=== PATIENT | female | born 1980 | race Caucasian/White ===

== ENCOUNTER 2020-04-01 18:36 | Emergency (ER) | payer OTHER ==
[~2020-04-01] VITALS: Ht 167.6 cm; Wt 68.0 kg
--- OUTSIDE RECORDS SUMMARY | ~2020-04-01 | XMS | Encounter Summary ---
Demographics + + + | Address | [address] | | | [place] [address] | + + + | Home Phone | | + + + | Preferred Language | Unknown | + + + | Marital Status | | + + + | Hoahaoism Affiliation | 1013 | + + + | Race | White | + + + | Ethnic Group | Not or | + + + Author + + + | Author | [facility] | | | and [place] | + + + | Organization | [facility] | | | and [place] | + + + | Address | Unknown | + + + | Phone | Unavailable | + + + Support + + + + + | Name | Relationship | Address | Phone | + + + + + | Leni Addison | ECON | NA | | | | | [place], [place] | | + + + + + Care Team Providers + +------+ + | Care Fountain Pen Turner Name | Role | Phone | + +------+ + | No, Physician | PCP | Unavailable | + +------+ + Reason for Referral Diagnostic/Screening (Routine) +--------+--------+ + + + + | Status | Reason | Specialty | Diagnoses / | Referred By | Referred To | | | | | Procedures | Contact | Contact | +--------+--------+ + + + + | Closed | | Radiology | Diagnoses | Yohana, | [facility] | | | | | Lumbar | Kaen | [address] | | | | | sprain | MD [place] | [place] | | | | | Sprain of | Need updated | [place] | | | | | left hip | address | [address] | | | | | Place of | | Phone: | | | | | occurrence, | | [phone] | | | | | industrial | | Fax: | | | | | places and | | [phone] | | | | | premises | | | | | | | Procedures | | | | | | | MRI Hip Left | | | | | | | wo Contrast | | | +--------+--------+ + + + + Encounter Details +--------+ + + + + | Date | Type | Department | Care Team | Description | +--------+ + + + + | 10/11/ | Orders Only | [facility] [place] | Kane Muller | Lumbar sprain | | 2012 | | [facility] [address] | MD Carlton Need | (Primary Dx); Sprain | | | | [facility] | updated address | of left hip; Place | | | | [facility] [place] | | of occurrence, | | | | [address] | | industrial places | | | | [phone] | | and premises | +--------+ + + + + Social History + +-------+ +--------+------+ | Tobacco Use | Types | Packs/Day | Years | Date | | | | | Used | | + +-------+ +--------+------+ | Never Smoker | | | | | + +-------+ +--------+------+ + +---+---+---+ | Smokeless Tobacco: | | | | | Former User | | | | + +---+---+---+ + + +---------+ + | Alcohol Use | Drinks/Week | oz/Week | Comments | + + +---------+ + | Not Asked | | | | + + +---------+ + + + + | Sex Assigned at | Date Recorded | | | | + + + | Not on file | | + + + documented as of this encounter Plan of Treatment Not on filedocumented as of this encounter Results MRI Hip Left wo Contrast (10/16/2012 2:27 PM PDT) + + | Specimen | + + | | + + + + + | Narrative | Performed At | + + + | [facility] | [place] | | Department [facility] | [facility] | | [ rep [address]] [ rep ct [facility] | | st zip] Signed | - IMAGING | | | | | Patient Name: PENELOPE VASQUEZ Physician: | | | [place]. : 1980 Age: 32 Sex: F Unit #: [id number] | | | Exam Date: 10/16/12 Location: [facility] | | | Report #: [id number] Page: | | | %(RAD)RES..mtdd.print.filter("pg") of %(RAD) | | | RES..mtdd.print.filter("tpg") | | | | | | Accession Number: [id number] | | | MRI LEFT HIP, 10/16/2012 CLINICAL HISTORY: BACK AND LEFT | | | HIP PAIN. COMPARISON: 03/20/2012 left hip MRI. | | | TECHNIQUE: MRI imaging of the pelvis and dedicated sequences of the | | | left hip without contrast. FINDINGS: There is abnormal | | | signal in the anterosuperior left hip labrum. There is also small | | | focus of chondral labral separation. Mild altered signal continues | | | in the superior labrum. The posterior and posteroinferior labrum is | | | normal and intact. There is no significant cartilage heterogeneity | | | or evidence for cartilage loss on the acetabulum or femoral head. | | | No morphologic changes to suggest femoral acetabular impingement | | | or acetabular protrusion. No evidence for acetabular retroversion. | | | The iliofemoral ligament is unremarkable. The visible iliopsoas | | | tendon is unremarkable. No significant joint effusion. | | | Bilaterally, marrow signal is normal. No evidence for fracture or | | | stress related changes. No evidence for osteitis pubis. No | | | visible sacroiliitis. There is no right hip joint effusion. No | | | muscle edema or significant atrophy or asymmetry. There is a small | | | rounded area of low signal in the right aspect of the uterus that | | | may be a fibroid. Overall configuration of the uterus has normalized | | | compared to the prior exam. No significant pelvic free fluid. | | | IMPRESSION: 1. FINDINGS CONSISTENT WITH A LABRAL | | | TEAR OF THE LEFT ANTEROSUPERIOR LABRUM. | | | <<Signature on File>> | | | Epi | | | Giorgio Pascual MD10/17/12 1109 <Electronically signed by Epi Alvares | | | Ankur WHITTAKER> Epi Pascual MD 10/16/12 1427 | | | Oil Winterizer: Jennie Mckenzie10/17/12 0835 | | | Kane Muller MD | | + + + + + + + + | Performing | Address | City[facility]State[facility] | Phone Number | | Organization | | | | + + + + + | [address] | [address] | [place] | [phone] | | [facility] | | [address] | | | - IMAGING | | | | + + + + + documented in this encounter Visit Diagnoses + + | Diagnosis | + + | Lumbar sprain - Primary Sprain of lumbar region | + + | Sprain of left hip Sprain and strain of unspecified site of hip and thigh | + + | Place of occurrence, industrial places and premises | + + documented in this encounter
--- OUTSIDE RECORDS SUMMARY | ~2020-04-01 | XMS | Encounter Summary ---
Demographics + + + | Address | [address] | | | [place] [address] | + + + | Home Phone | | + + + | Preferred Language | Unknown | + + + | Marital Status | | + + + | Yazdanism Affiliation | Unknown | + + + | Race | White | + + + | Ethnic Group | Not or | + + + Author + + + | Author | [facility] | + + + | Organization | [facility] | + + + | Address | Unknown | + + + | Phone | Unavailable | + + + Support + + +---------+ + | Name | Relationship | Address | Phone | + + +---------+ + | Leni Villarreal | ECON | Unknown | | + + +---------+ + Care Team Providers + +------+ + | Care Estate Manager Name | Role | Phone | + +------+ + | Radu Prater MD | PCP | | + +------+ + Encounter Details +--------+ + + + + | Date | Type | Department | Care Team | Description | +--------+ + + + + | 09/18/ | Documentati | [facility] | Hernandez Melendez, | | | 2014 | on | Center at [facility] [address] | [address] | | | | | [address] | [facility] [place] | | | | | [facility] and | [address] | | | | | [facility], [facility] 1, | [phone] | | | | | [facility] Floor | | | | | | [place], [place] | | | | | | [address] | | | | | | [phone] | | | +--------+ + + + + Social History + +-------+ +--------+------+ | Tobacco Use | Types | Packs/Day | Years | Date | | | | | Used | | + +-------+ +--------+------+ | Never Assessed | | | | | + +-------+ +--------+------+ + + + | Sex Assigned at | Date Recorded | | | | + + + | Not on file | | + + + documented as of this encounter Plan of Treatment Not on filedocumented as of this encounter Visit Diagnoses Not on filedocumented in this encounter"
--- OUTSIDE RECORDS SUMMARY | ~2020-04-01 | XMS | Encounter Summary ---
Demographics + + + | Address | [address] | | | [place] [address] | + + + | Home Phone | | + + + | Preferred Language | Unknown | + + + | Marital Status | | + + + | Voodoo Affiliation | 1013 | + + + | Race | White | + + + | Ethnic Group | Not or | + + + Author + + + | Author | [facility] | | | and [place] | + + + | Organization | [facility] | | | and [...] Team Providers + +------+ + | Care Floor Scraper Name | Role | Phone | + +------+ + PCP | Unavailable | + +------+ + Encounter Details +--------+ + + + + | Date | Type | Department | Care Team | Description | +--------+ + + + + | 07/01/ | Hospital | [facility] | | | | 2002 | Encounter | MED CTR XRAY [address] | | | | | | [place] | | | | | | [place] [address] | | | | | | [phone] | | | +--------+ + + + [...]
--- OUTSIDE RECORDS SUMMARY | ~2020-04-01 | XMS | Encounter Summary ---
Demographics + + + | Address | [address] | | | [place] [address] | + + + | Home Phone | | + + + | Preferred Language | Unknown | + + + | Marital Status | | + + + | Baptism Affiliation | 1013 | + + + | Race | White | + + + | Ethnic Group | Not or | + + + Author + + + | Author | [facility] | | | and [place] | + + + | Organization | [facility] | | | and [place] | + + + | Address | Unknown | + + + | Phone | Unavailable | + + + Support + + + + + | Name | Relationship | Address | Phone | + + + + + | Leni Addison | ECON | NA | | | | | [place] | | + + + + + Care Team Providers + +------+ + | Care Business Partner Name | Role | Phone | + +------+ + | Radu Fabian MD | PCP | | + +------+ + Reason for Referral Rehabilitation (Routine) +--------+ + + + + + | Status | Reason | Specialty | Diagnoses / | Referred By | Referred To | | | | | Procedures | Contact | Contact | +--------+ + + + + + | Closed | Specialty | Physical | Diagnoses | Yohana, | [place], | | | Services | Medicine and | Lumbar | Kane | Laureano Alvares MD | | | Required | Rehabilitatio | sprain Left | MD Carlton | [address] | | | | n | lumbar | Need updated | [facility] | | | | | radiculitis | address | [place], [place] | | | | | Sprain of | | [address] Phone: | | | | | left hip | | [phone] | | | | | Place of | | Fax: | | | | | occurrence, | | [phone] | | | | | industrial | | | | | | | places and | | | | | | | premises | | | +--------+ + + + + + Reason for Visit + + + | Reason | Comments | + + + | Back Pain | | + + + Encounter Details +--------+---------+ + + + | Date | Type | Department | Care Team | Description | +--------+---------+ + + + | 11/18/ | Office | [facility] [place] | Kane Muller | Lumbar sprain | | 2012 | Visit | OCCUPATIONAL HEALTH | MD Carlton Need | (Primary Dx); Left | | | | [facility] [address] | updated address | lumbar radiculitis; | | | | [address] [place] | | Sprain of left hip; | | | | [place], [place] | | Place of occurrence, | | | | [address] | | industrial places | | | | [phone] | | and premises | +--------+---------+ + + + Social History + +-------+ [...] + + documented as of this encounter Last Filed Vital Signs + + + + + | Vital Sign | Reading | Time Taken | Comments | + + + + + | Blood Pressure | 110/78 | 11/18/2012 8:08 AM | | | | | PDT | | + + + + + | Pulse | 84 | 11/18/2012 8:08 AM | | | | | PDT | | + + + + + | Temperature | 37.1 C (98.8 F) | 11/18/2012 8:08 AM | | | | | PDT | | + + + + + | Respiratory Rate | 16 | 11/18/2012 8:08 AM | | | | | PDT | | + + + + + | Oxygen Saturation | - | - | | + + + + + | Inhaled Oxygen | - | - | | | Concentration | | | | + + + + + | Weight | 73.5 kg (162 lb) | 11/18/2012 8:08 AM | | | | | PDT | | + + + + + | Height | 167.6 cm (5' 6") | 11/18/2012 8:08 AM | | | | | PDT | | + + + + + | Body Mass Index | 26.15 | 11/18/2012 8:08 AM | | | | | PDT | | + + + + + documented in this encounter Progress Notes Kane Muller MD - 11/18/2012 9:39 AM PDTSee dictation [id number] nikki d by Kane Muller MD at 11/18/2012 9:40 AM Kane Phan MD - 11/19/19 13 12:00 AM PDT OCCUPATIONAL MEDICINE [facility] [place] [address] FAX: [phone] OFFICE VISIT : 1980 Claim number: [id number] Date of injury: 07/27/2011 Employer: [employer] Guarantor: Musa Jenkins COMPLAINT: Back pain and left hip pain, scheduled followup. S: The injured worker is 32 years of age, here for a scheduled followup. She is doing some what better. She did have her follow up with Dr. Martinez, injection therapy was performed in the trochanteric bursal area, I believe, and she notes that there is essentially total resolution of part of her discomfort, which was emanating from the greater trochanteric are a distally. She still has discomfort that is superior and posterior to the greater trochant tyree area, and Dr. Martinez's recommendations to her was to have a followup with Dr. Morgan summers, to consider injection therapy into the acetabular area, I would guess under fluorosc opy guidance, to see if this will completely clear up her problems. No surgical treatment w as indicated, to the best of her knowledge. She has seen Dr. Peraza before, with regard s to her evaluation and treatment for her back, and she is anxious and optimistic about res olution of her symptoms with treatment going in a positive direction at this time. She repo rts no new development of musculoskeletal or neurologic symptomatology or changes in backgr ound medical information. She is continuing to work at her regular work responsibilities. OBJECTIVE VITAL SIGNS: Unremarkable. GENERAL: No acute distress. EXTREMITY EXAMINATION: Left hip exam, no point tenderness on palpation. She demonstrated v mirna good range of motion on hip flexion and extension and external rotation, with essential ly no complaints of discomfort in the greater trochanteric area. I pointed out to her that this appeared to be a remarkable improvement, and she considered this for a bit and then morrissey d to agree. There were no distal neurocirculatory changes. Gait was unremarkable. IMAGING / DIAGNOSTICS: None indicated at this time, other than following through with Dr. Peraza to see if he has anything else to add with regards to hip pathology and treatmen t. PENDING INTERVENTIONS: Continue conservative measures, pending Dr. Peraza's evaluation , which is currently scheduled for 12/09/2012. A: 1. Lumbar sprain and left radiculitis. 2. Left hip sprain and internal derangement. P: The injured worker is congratulated on her good response to the injection therapy. I am going to schedule her to see me in about a 2-month period of time, anticipating that withi n that time frame she will have a chance to go through treatment recommendations from Dr. Peraza, and at the follow up with me, we will determine whether or not she is at maximal medical improvement with regards to treatment and diagnostic intervention. She voiced und erstanding and agreement. E: Regular work. R: The restrictions are: No work restrictions. Impairment undetermined. She is not MMI status for the above reasons. John Muller MD / [facility] JOB #: [id number] signed by Kane Muller MD at 11/18/2012 4:15 PM PDTd ocumented in this encounter Miscellaneous Notes Plan of Care - VIKKI TREVIÑO [facility] - 11/18/2012 12:00 AM PDT documented in this encounter Plan of Treatment + + +--------+ + + | Name | Type | Priori | Associated Diagnoses | Order Schedule | | | | ty | | | + + +--------+ + + | Ambulatory referral | Outpatient | Routin | Lumbar sprain | Ordered: 11/18/2012 | | to Physical Medicine | Referral | e | Left lumbar | | | Rehab | | | radiculitis Sprain | | | | | | of left hip Place | | | | | | of occurrence, | | | | | | industrial places | | | | | | and premises | | + + +--------+ + + documented as of this encounter Visit Diagnoses + + | Diagnosis | + + | Lumbar sprain - Primary Sprain of lumbar region | + + | Left lumbar radiculitis Thoracic or lumbosacral neuritis or radiculitis, unspecified | + + | Sprain of left hip Sprain and strain of unspecified site of hip and thigh | + + | Place of occurrence, industrial places and premises | + + documented in this encounter
--- OUTSIDE RECORDS SUMMARY | ~2020-04-01 | XMS | Encounter Summary ---
Demographics + + + | Address | [address] | | | [place] [address] | + + + | Home Phone | | + + + | Preferred Language | Unknown | + + + | Marital Status | | + + + | Jain Affiliation | 1013 | + + + [...] | NA | | | | | [place], [place] | | + + + + + Care Team Providers + +------+ + | Care Global Program Manager Name | Role | Phone | + +------+ + PCP | Unavailable | + +------+ + Encounter Details +--------+ + + + + | Date | Type | Department | Care Team | Description | +--------+ + + + + | 11/26/ | Hospital | [facility] | Shaun Fairbanks MD | | | 2000 | Encounter | MED CTR [facility] | [address] | | | | | [facility] [address] | [place] | | | | | [place], | [address] | | | | | [place] [address] | | | | | | [phone] | | | +--------+ + + + [...]
--- OUTSIDE RECORDS SUMMARY | ~2020-04-01 | XMS | Encounter Summary ---
Demographics + + + | Address | [address] | | | [place] [address] | + + + | Home Phone | | + + + | Preferred Language | Unknown | + + + | Marital Status | | + + + | Orthodox Affiliation | 1013 | + + + | Race | White | + + + | Ethnic Group | Not or | + + + Author + + + | Author | [facility] | | | and [place] | + + + | Organization | [facility] | | | and [...] Team Providers + +------+ + | Care Lab Coordinator Name | Role | Phone | + +------+ + | Radu Fabian MD | PCP | | + +------+ + Reason for Visit + + + | Reason | Comments | + + + | Back Pain | | + + + Encounter Details +--------+---------+ + + + | Date | Type | Department | Care Team | Description | +--------+---------+ + + + | 10/31/ | Office | [facility] | Kane Muller | Lumbar sprain | | 2013 | Visit | OCCUPATIONAL HEALTH | MD Carlton Need | (Primary Dx); Left | | | | [place] [address] | updated address | lumbar radiculitis; | | | | [address] [place] | | Place of occurrence, | | | | [place], [place] | | industrial places | | | | [address] | | and premises | | | | [phone] | | | +--------+---------+ + + + Social History [...] + + + | Blood Pressure | 110/65 | 10/31/2012 1:09 PM | | | | | PDT | | + + + + + | Pulse | 72 | 10/31/2012 1:09 PM | | | | | PDT | | + + + + + | Temperature | 37 C (98.6 F) | 10/31/2012 1:09 PM | | | | | PDT | | + + + + + | Respiratory Rate | 16 | 10/31/2012 1:09 PM | | | | | PDT | | + + + + + | Oxygen Saturation | - | - | | + + + + + | Inhaled Oxygen | - | - | | | Concentration | | | | + + + + + | Weight | 73.5 kg (162 lb) | 10/31/2012 1:09 PM | | | | | PDT | | + + + + + | Height | 167.6 cm (5' 6") | 10/31/2012 1:09 PM | | | | | PDT | | + + + + + | Body Mass Index | 26.15 | 10/31/2012 1:09 PM | | | | | PDT | | + + + + + documented in this encounter Progress Notes Kane Muller MD - 10/31/2012 1:58 PM PDTSee dictation [id number] nikki d by Kane Muller MD at 10/31/2012 1:59 PM Kane Phan MD - 11/01/19 13 12:00 AM PDT OCCUPATIONAL MEDICINE [facility] [place] [address] FAX: [phone] OFFICE VISIT CLAIM NUMBER: [id number] DATE OF INJURY: 07/27/2011 EMPLOYER: [employer] GUARANTOR: Musa Jenkins COMPLAINT: Back injury, scheduled followup to address recent orthopedic evaluation. S: The injured worker is 32, here for a scheduled appointment. She had contacted our office and expressed concerns about the specific treatment plan that had been outlined for her by Dr. Martinez, orthopedic national sales consultant. She is concerned that where Dr. Martinez is anticip ating performing his services may not be the area where her problems are stemming from and we have discussed this at some length, it should be noted below. She reports no other ferro es in background medical information. OBJECTIVE VITAL SIGNS: Unremarkable. GENERAL: No acute distress. Gait appears to be normal, to me. IMAGING/DIAGNOSTICS: None indicated based on our evaluation this date. PENDING INTERVENTIONS: Following through with treatment recommendations per Dr. Martinez, orthopedic national sales consultant. A: LUMBAR SPRAIN WITH LEFT RADICULITIS, POSSIBLE LEFT HIP PATHOLOGY, PERSISTENT SYMPTOMATOL OGY. P: I did explain to the injured worker that Dr. Martinez is a very good and cautious provi ainsley who would not frivolously recommend a treatment without a good logical treatment plan i n place. I indicated to the injured worker that the procedure being performed by Dr. Bahena son has both therapeutic, hopefully, and diagnostic information, and that the experiences o f the injured worker following the injection therapy and what her response is to that is ex tremely important in formulating a better idea of the precise diagnosis and source of her d iscomfort in formulating a good treatment plan. After this discussion she was much more rel ieved, confident, and prepared to move forward with this. I did indicate to the injured wor ker that the treatment obviously needs to have approval by the shelter case manager and, hopefull y, that will be forthcoming. I do believe that it is important for us, on a diagnostic basi s, to be moving forward with this treatment plan with the diagnostic intervention so that t he very best diagnosis and, accordingly, best treatment be afforded the injured worker. She voiced understanding and agreement. E: She is still doing regular work. R: No work restrictions at this time. Impairment undetermined. I do not believe she is MMI status for the above reasons. I will follow up with her in about a 2-3 week period of time to review clinical response to the injection therapy, or certainly sooner p.r.n. developmen t of problems. G. Carlton Yohana, MD / [facility] JOB #: [id number] signed by Kane Muller MD at 11/01/2012 5:10 PM PDTd ocumented in this encounter Miscellaneous Notes Plan of Care - VIKKI KAMILA WAAZ - 10/31/2012 12:00 AM PDT documented in this encounter Plan of Treatment Not on filedocumented as of this encounter Visit Diagnoses + + | Diagnosis | + + | Lumbar sprain - Primary Sprain of lumbar region | + + | Left lumbar radiculitis Thoracic or lumbosacral neuritis or radiculitis, unspecified | + + | Place of occurrence, industrial places and premises | + + documented in this encounter
--- OUTSIDE RECORDS SUMMARY | ~2020-04-01 | XMS | Encounter Summary ---
Demographics + + + | Address | [address] | | | [place] [address] | + + + | Home Phone | | + + + | Preferred Language | Unknown | + + + | Marital Status | | + + + | Yarsani Affiliation | 1013 | + + + | Race | White | + + + | Ethnic Group | Not or | + + + Author + + + | Author | [facility] | | | and [place] | + + + | Organization | [facility] | | | [...] Team Providers + +------+ + | Care Recreation Establishment Manager Name | Role | Phone | + +------+ + PCP | Unavailable | + +------+ + Encounter Details +--------+ + + + + | Date | Type | Department | Care Team | Description | +--------+ + + + + | 08/19/ | Hospital | [facility] | | | | 1995 | Encounter | MED CTR XRAY [address] | | | | | | [place] | | | | | | [place] [address] | | | | | | [phone] | | | +--------+ + + + [...]
--- OUTSIDE RECORDS SUMMARY | ~2020-04-01 | XMS | Encounter Summary ---
Demographics + + + | Address | [address] | | | [place] [address] | + + + | Home Phone | | + + + | Preferred Language | Unknown | + + + | Marital Status | | + + + | Judaism Affiliation | Unknown | + + + | Race | White | + + + | Ethnic Group | Not or | + + + Author + + + | Author | [facility] | + + + | Organization | [facility] | + + + | Address | Unknown | + + + | Phone | Unavailable | + + + Support + + +---------+ + | Name | Relationship | Address | Phone | + + +---------+ + | Leni Villarreal | ECON | Unknown | | + + +---------+ + Care Team Providers + +------+ + | Care Hydro Generation Supervisor Name | Role | Phone | + +------+ + | Radu Prater MD | PCP | | + +------+ + Reason for Visit + + + | Reason | Comments | + + + | New Patient Visit | | + + + Consultation (Routine) +--------+--------+ + + + + | Status | Reason | Specialty | Diagnoses / | Referred By | Referred To | | | | | Procedures | Contact | Contact | +--------+--------+ + + + + | Closed | | Otolaryngolog | Diagnoses | Paresh, | Ent Sinus | | | | y | | Davie Rangel, | [facility] [address] | | | | | Disturbances | MD | [address] | | | | | of | [place] | [place] for | | | | | sensation of | HEAD & NECK | Health and | | | | | smell and | [facility] [address] | Healing, | | | | | taste Acute | [address] | [address], | | | | | sinusitis, | [address] | [address] | | | | | unspecified | [place], | [place], [place] | | | | | | [place] [address] | [address] | | | | | | Phone: | Phone: | | | | | | [phone] | [phone] | | | | | | Fax: | Fax: | | | | | | [phone] | [phone] | +--------+--------+ + + + + Encounter Details +--------+---------+ + + + | Date | Type | Department | Care Team | Description | +--------+---------+ + + + | 09/24/ | Office | [facility] | Huong Ramsay E, | Hyposmia (Primary | | 2013 | Visit | Center at [facility] | [facility] [address] | Dx) | | | | [address] | Ave [place], [place] | | | | | for Health and | [address] | | | | | [facility], [facility], | [phone] | | | | | [address] [place] [address] | | | | | | [place], [place] | | | | | | [address] | | | | | | [phone] | | | +--------+---------+ + + + Social History + +-------+ +--------+------+ | Tobacco Use | Types | Packs/Day | Years | Date | | | | | Used | | + +-------+ +--------+------+ | Never Smoker | | | | | + +-------+ +--------+------+ + + +---------+ + | Alcohol Use | Drinks/Week | oz/Week | Comments | + + +---------+ + | Yes | 5 Standard drinks | 4.2 | | | | or equivalent | | | + + +---------+ + + + + | Sex Assigned at | Date Recorded | | | | + + + | Not on file | | + + + documented as of this encounter Progress Notes Huong Ramsay PA-C - 09/24/2013 2:20 PM PDT [facility] HPI: Gayathri Palma is a 33 y.o. female who presents to the [facility] in c onsultation for decreased smell and taste. Current symptoms include loss of smell and taste . Symptoms began 5 months ago, following a URI. She can decipher between sweet, salty, suzette r and bitter. Describes an occasional sulphur and sweet scent. Symptom severity is moderate. Improvement occurred with Nothing. Additional evaluation has included CT scan sinuses. She has used saline irrigations and was also treated with an oral steroid, antibiotic and m ucinex around the end of Jul, no improvement with these therapies. No current outpatient prescriptions on file. No current facility-administered medications for this visit. The patient's New Patient History Form was reviewed with the patient. Changes and addition s, where necessary, were made and the form was scanned to the medical record. Comprehensive review of systems was negative other than as documented on this note and on the New Patient History Form. No past medical history on file. Past Surgical History Procedure Laterality Date Hysterectomy Family History Problem Relation Cancer Heart Disease History Substance Use Topics Smoking status: Never Smoker Smokeless tobacco: Not on file Alcohol Use: 2.5 oz/week 5 drink(s) per week Allergies: No Known Allergies PHYSICAL EXAM: General Appearance: Pleasant, well-developed, well-nourished patient, in no apparent distre ss. Mental status normal. Breathing quietly, comfortably, no stridor or wheezing. Head/Face: No skin lesions, face symmetric, sensation normal Eyes: EOMI Ears: External ears normal to inspection and palpation, canals clear, TM's intact, no middl e ear effusion. Nose: Anterior rhinoscopy reveals healthy mucosa. Nasal endoscopy was indicated to better e valuate the nose and paranasal sinuses given the patient's history and exam findings and is detailed below. Oral Cavity/Pharynx: No masses or lesions of lips, gums, tongue, floor of mouth, buccal muc farhad, hard palate or soft palate. Dentition is good. No erythema, exudate, or tonsillar sean s. Posterior pharyngeal wall normal. Neck/Lymphatic: no masses or adenopathy Neurologic: CN 2-12 intact PROCEDURE: Diagnostic Nasal Endoscopy Anesthesia: Lidocaine 4% topical anesthetic was placed. Description of Procedure: A rigid endoscope was utilized to evaluate the sinonasal cavities , mucosa, sinus ostia and turbinates. Overall, signs of mucosal inflammation are noted. Al so noted are healthy mucosa. No evidence of purulence, polyps, masses or lesions. RADIOGRAPHIC EVALUATION: A current CT done at an outside facility was reviewed which reveal s overall well ventilated sinuses. 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 We've discussed issues and options today. The risks, benefits and alternatives were discus sed and questions answered. She will trial both smell training with three different house h old spices BID for two months. She will also start 400mg/day alpha lipoic acid for 2-3 month s. w She was given literature regarding hyposmia/ansomia. We discussed safety factors including reading expiration labels on food and checking to be sure smoke detectors are functioning in the home. We also discussed the option of obtaining a MRI if she notices any changes to her symptoms or neurological deficits. documented in this encounter Miscellaneous Notes Scan - Other, Faculty - 12/29/2013 12:16 PM PDTElectronically signed by Faculty Other at 12:16 PM PDTdocumented in this encounter Plan of Treatment Not on filedocumented as of this encounter Procedures + +--------+ + + + | Procedure Name | Priori | Date/Time | Associated Diagnosis | Comments | | | ty | | | | + +--------+ + + + | AL NASAL | Routin | 10/03/2013 | Hyposmia | | | ENDOSCOPY,DX | e | 2:32 PM | | | | | | PDT | | | + +--------+ + + + documented in this encounter Visit Diagnoses + + | Diagnosis | + + | Hyposmia - Primary Disturbances of sensation of smell and taste | + + documented in this encounter"
--- OUTSIDE RECORDS SUMMARY | ~2020-04-01 | XMS | Encounter Summary ---
Demographics + + + | Address | [address] | | | [place] [address] | + + + | Home Phone | | + + + | Preferred Language | Unknown | + + + | Marital Status | | + + + | Restorationism Affiliation | 1013 | + + + | Race | White | + + + | Ethnic Group | Not or | + + + Author + + + | Author | [facility] | | | and [place] | + + + | Organization | [facility] | | | and [...] Team Providers + +------+ + | Care Machine Zipper Trimmer Name | Role | Phone | + +------+ + | Radu Fabian MD | PCP | | + +------+ + Reason for Visit + + + | Reason | Comments | + + + | Hip Pain | | + + + Encounter Details +--------+---------+ + + + | Date | Type | Department | Care Team | Description | +--------+---------+ + + + | 10/24/ | Office | [facility] [place] | Davie Martinez | Hip pain, left | | 2012 | Visit | ORTHOPEDIC SURGERY | MD Chao [address] | (Primary Dx); | | | | [address] | [place] | Acetabular labrum | | | | [place] | [id number] | tear | | | | [address] | | | | | | [phone] | | | +--------+---------+ + + + [...] + + + | Blood Pressure | - | - | | + + + + + | Pulse | - | - | | + + + + + | Temperature | - | - | | + + + + + | Respiratory Rate | - | - | | + + + + + | Oxygen Saturation | - | - | | + + + + + | Inhaled Oxygen | - | - | | | Concentration | | | | + + + + + | Weight | - | - | | + + + + + | Height | 167.6 cm (5' 6") | 10/24/2012 4:43 PM | | | | | PDT | | + + + + + | Body Mass Index | - | - | | + + + + + documented in this encounter Progress Notes Davie Martinez MD - 10/24/2012 6:52 PM PDTSee soap note [id number].Electronically nikki d by Davie Martinez MD at 10/24/2012 6:52 PM VERONIKAHenDavie diaz MD - 10/24/2012 12:00 AM PDT ORTHOPEDICS [address] [place] [address] FAX: [phone] OFFICE VISIT IDENTIFICATION Gayathri Palma is a 32-year-old female 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 She receives primary care from Dr. Prater. She has been referred to our office by Dr. Carlton Muller. CHIEF COMPLAINT: Left hip pain. HISTORY: Gayathri states that she sustained an injury to her left hip 07/27/2011, when she wa s repeatedly lifting a series of heavy boxes and walking up and down stairs with the boxes, while at work. She first noted pain in her left low back. Her symptoms also seemed suggest manav of a lumbar radiculopathy and she therefore was evaluated and treated for a lumbar radi culopathy. Evaluation included an MRI scan. Medication included Paxil, gabapentin, ibuprofe n and Robaxin. She underwent specialty evaluation by Dr. Laureano Peraza, business machines teacher, who performed nerve conduction velocity studies, which were felt to be within normal limits. Calderon mccarthy also had SI joint injections, which were not particularly helpful. In addition, she under went a SPECT scan, which was found to be normal. A lumbar MRI scan was obtained, which prim arily showed mild degenerative changes at L4-5 and L5-S1. Ultimately, she was seen by an in dependent medical records supervisor who thought that her problem actually might be in her left hip j oint. To pursue this issue an MRI scan was obtained 03/20/2012, which was read as showing a possible labral tear, although the evaluation limited by the nonarthrographic nature of paige e study. She then subsequently underwent a followup MRI scan 10/16/2012, which was a nonart hrographic study, but had dedicated sequences of the left hip without contrast, and this wa s felt to show findings consistent a labral tear of the left anterior superior labrum. Today Gayathri notes that her pain is primarily located on the lateral and posterior aspect o f her left buttock. She has pain on a constant basis, both while sitting as well as standin g. She has nighttime pain, which prevents her from sleeping well at night. She denies pain at rest in her groin. She notes that walking aggravates the pain. She currently is working on a light-duty basis at [employer]. PAST MEDICAL HISTORY: Includes gastroenteritis, headache, and depression. PAST SURGICAL HISTORY: Includes laparoscopic abdominal surgery. MEDICATION ALLERGIES: NONE. CURRENT MEDICATIONS 1. Prozac 20 mg p.o. daily. 2. Ativan 0.5 mg p.o. p.r.n. 3. Neurontin 300 mg p.o. daily. 4. Ibuprofen p.r.n. pain. 5. Robaxin 750 mg p.o. p.r.n. muscle spasm. 6. control pills. FAMILY HISTORY: Positive for heart disease and cancer. The patient has 3 children. SOCIAL HISTORY: She denies use of illegal drugs or tobacco. She drinks an occasional glass of wine. REVIEW OF SYSTEMS: Negative in all 12 categories except for occasional constipation, joint pain, back pain, some sleeping difficulties and weight change. EXAMINATION: Reveals that Gayathri is walking with a slight limp favoring her left lower ext remity. Palpation reveals definite and distinct tenderness over the superior aspect of the trochanteric bursa of the left hip. She has no groin tenderness. She has no SI joint tendern ess or ischial tuberosity tenderness. Exam in the seated position reveals that she has defi nite discomfort with full internal rotation of the left hip, but none with external rotatio n. Exam in the supine position reveals that she has significant and definite pain with flex ion of the hip to 100 degrees, combined with full internal rotation to the maximum availabl e motion. Neurovascular function is intact to both feet. MRI SCAN: Review of the patient's left hip MRI scan from 10/16/2012 suggests a labral tear. ASSESSMENT A 1-1/4-YEAR HISTORY OF LEFT HIP PAIN RESULTING FROM AN OVERUSE INJURY CONSISTING OF LIFTIN G MULTIPLE HEAVY BOXES UP AND DOWN STAIRS, WITH CURRENT CLINICAL AND RADIOGRAPHIC FINDINGS SUGGESTING A COMBINATION OF LEFT HIP TROCHANTERIC BURSITIS, WELL LEFT HIP LABRAL TEAR . ADVICE: We discussed our findings at length with Gaaythri. I feel that we can further define her diagnosis with several selective injections. We have first recommended a trochanteric b ursal injection, which she is desirous of having administered. 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 Following this, we also will plan to refer her back to Dr. Vinay dennis for a left hip joint therapeutic injection, which should provide significant relief of pain if her labral tear is a significant pain generator for her left hip pain. She is a greeable with this diagnostic plan and therefore will return to our office in 1 week. Davie Martinez MD / NAHED JOB #: [id number] cc: John Muller MD 3 :18 PM PDTdocumented in this encounter Plan of Treatment Not on filedocumented as of this encounter Visit Diagnoses + + | Diagnosis | + + | Hip pain, left - Primary Pain in joint, pelvic region and thigh | + + | Acetabular labrum tear Sprain and strain of other specified sites of hip and thigh | + + documented in this encounter
--- OUTSIDE RECORDS SUMMARY | ~2020-04-01 | XMS | Encounter Summary ---
Demographics + + + | Address | [address] | | | [place] [address] | + + + | Home Phone | | + + + | Preferred Language | Unknown | + + + | Marital Status | | + + + | Roman Catholic Affiliation | 1013 | + + + | Race | White | + + + | Ethnic Group | Not or | + + + Author + + + | Author | [facility] | | | and [place] | + + + | Organization | [facility] | | | and [...] Team Providers + +------+ + | Care Medication Assistant Name | Role | Phone | + +------+ + | No, Physician | PCP | Unavailable | + +------+ + Reason for Visit + + + | Reason | Comments | + + + | Back Injury | | + + + Encounter Details +--------+---------+ + + + | Date | Type | Department | Care Team | Description | +--------+---------+ + + + | 09/09/ | Office | [facility] | Kane Muller | Lumbar sprain | | 2012 | Visit | OCCUPATIONAL HEALTH | MD Carlton Need | (Primary Dx); | | | | [facility] [address] | updated address | Radiculitis of leg; | | | | [address] [place] | | Place of occurrence, | | | | [place], [place] | | industrial places | | | | [address] | | and premises | | | | [phone] | | | +--------+---------+ + + + [...] + + + | Blood Pressure | 110/76 | 09/09/2012 1:17 PM | | | | | PDT | | + + + + + | Pulse | 76 | 09/09/2012 1:17 PM | | | | | PDT | | + + + + + | Temperature | 36.7 C (98 F) | 09/09/2012 1:17 PM | | | | | PDT | | + + + + + | Respiratory Rate | 16 | 09/09/2012 1:17 PM | | | | | PDT | | + + + + + | Oxygen Saturation | - | - | | + + + + + | Inhaled Oxygen | - | - | | | Concentration | | | | + + + + + | Weight | 72.6 kg (160 lb) | 09/09/2012 1:17 PM | | | | | PDT | | + + + + + | Height | 167.6 cm (5' 6") | 09/09/2012 1:17 PM | | | | | PDT | | + + + + + | Body Mass Index | 25.82 | 09/09/2012 1:17 PM | | | | | PDT | | + + + + + documented in this encounter Progress Notes Kane Muller MD - 09/09/2012 1:56 PM PDTSee dictation [id number] nikki d by Kane Muller MD at 09/09/2012 2:01 PM Kane Phan MD - 09/10/19 13 12:00 AM PDT OCCUPATIONAL MEDICINE [facility] [place] [address] FAX: [phone] OFFICE VISIT BACKGROUND INFORMATION CLAIM NO. [id number] DOI: 07/27/2011 EMP: [employer] [place]: [place] COMPLAINT: Lumbar injury with left radiculitis, scheduled follow up. S: The injured worker is here for a scheduled 1 week follow up after her visit last week w hen we discussed having a denial of the left hip arthrogram. We have communicated with the Department of Labor and Industry and to the best of our knowledge, the current status is th at our request and protest of the denial of the diagnostic test has been received but there has been no change in the status of that denial. We were unable to find out any other info rmation regarding this circumstance and I apologized to the injured worker that we have no further information to discuss. I did indicate that my plan would be to try to have a one-o n-one conversation with the claims account manager to evaluate the circumstances to determine what options might be available to move forward with the diagnostic testing. She voiced understa nding and agreement. OBJECTIVE VITAL SIGNS: Unremarkable. In no acute distress. No dedicated exam performed this visit. Indirect observation of movements did not appear to be restricted. IMAGING/DIAGNOSTICS: We are still requesting approval for the diagnostic test for the left hip that had been recommended by the [facility] examiner. No other diagnostic testing deemed nece ssary at this point in time. PENDING INTERVENTIONS: Continue conservative measures while we await either further conve rsation or a more specific determination regarding our request. A: LUMBAR SPRAIN WITH LEFT RADICULITIS, POSSIBLE LEFT HIP PATHOLOGY, PERSISTENT SYMPTOMA TOLOGY DESPITE PASSAGE OF TIME AND INITIAL CONSERVATIVE TREATMENT.. P: The injured worker is going to be set up for an appointment in about a 4 week period of time. I am hoping that we will have a final determination long before that and of course, she will be notified should we be allowed to proceed with the diagnostic testing, otherwise we will recheck in 4 weeks. She voiced understanding and agreement. E: Regular work. R: No specific restrictions. Impairment undetermined. She is not deemed MMI status yet for the above reasons. John Muller MD / PAP JOB #: [id number] signed by Kane Muller MD at 09/10/2012 6:32 PM PDTd ocumented in this encounter Miscellaneous Notes Plan of Care - ONBASE SCAN AIDA - 09/09/2012 12:00 AM PDT documented in this encounter Plan of Treatment Not on filedocumented as of this encounter Visit Diagnoses + + | Diagnosis | + + | Lumbar sprain - Primary Sprain of lumbar region | + + | Radiculitis of leg Thoracic or lumbosacral neuritis or radiculitis, unspecified | + + | Place of occurrence, industrial places and premises | + + documented in this encounter
--- OUTSIDE RECORDS SUMMARY | ~2020-04-01 | XMS | Encounter Summary ---
Demographics + + + | Address | [address] | | | [place] [address] | + + + | Home Phone | | + + + | Preferred Language | Unknown | + + + | Marital Status | | + + + | Confucianist Affiliation | 1013 | + + + | Race | White | + + + | Ethnic Group | Not or | + + + Author + + + | Author | [facility] | | | and [place] | + + + | Organization | [facility] | | | and [...] Team Providers + +------+ + | Care Thoroughbred Horse Farm Manager Name | Role | Phone | + +------+ + PCP | Unavailable | + +------+ + Encounter Details +--------+ + + + + | Date | Type | Department | Care Team | Description | +--------+ + + + + | 03/26/ | Hospital | [facility] | Santosh Shay | | | 2009 - | Encounter | MED CTR WOMENMarybeth Negron MD | | | | | [facility] [address] | | | | 03/27/ | | [place] | | | | 2009 | | [place] [address] | | | | | | [phone] | | | +--------+ + + + [...]
--- OUTSIDE RECORDS SUMMARY | ~2020-04-01 | XMS | Encounter Summary ---
Demographics + + + | Address | [address] | | | [place] [address] | + + + | Home Phone | | + + + | Preferred Language | Unknown | + + + | Marital Status | | + + + | Restoration Affiliation | 1013 | + + + | Race | White | + + + | Ethnic Group | Not or | + + + Author + + + | Author | [facility] | | | and [place] | + + + | Organization | [facility] | | | and [place] | + + + | Address | Unknown | + + + | Phone | Unavailable | + + + Support + + + + + | Name | Relationship | Address | Phone | + + + + + | Leni Addison | ECON | NA | | | | | [place] | | + + + + + Care Team Providers + +------+ + | Care Anchorman Name | Role | Phone | + +------+ + PCP | Unavailable | + +------+ + Encounter Details +--------+ + + + + | Date | Type | Department | Care Team | Description | +--------+ + + + + | 01/23/ | Hospital | [facility] | Radu Prater MD | | | 2010 | Encounter | MED CTR XRAY [address] | | | | | [place] | [place], [place] | | | | | [place] [address] | [address] | | | | | [phone] | | | +--------+ + + + [...] | + +--------+ + + + | MRI LUMBAR SPINE WO | | 01/23/2011 | | Results for this | | CONTRAST | | 12:51 PM | | procedure are in the | | | | PDT | | results section. | + +--------+ + + + documented in this encounter Results MRI Lumbar Spine wo Contrast (01/23/2011 12:51 PM PDT) + + | Specimen | + + | | + + + + + | Narrative | Performed At | + + + | [facility] Diagnostic Imaging Department | [facility] | | [address] | [facility] | | MRI OF THE LUMBAR SPINE, | DIAG IMG | | 01/23/2011 CLINICAL HISTORY: LOW BACK PAIN. TECHNIQUE: | | | Sagittal T1, T2, and STIR, coronal T2 and axial T1 and T2-weighted | | | sequences are reviewed. FINDINGS: The conus medullaris and | | | cauda equina show a normal signal and appearance. Alignment of th e | | | lumbar spine is normal. No areas of abnormal marrow signal are seen. | | | Incidental note is made of sma ll follicular cysts on both ovaries | | | but no other adjacent abnormalities are noted. Level by level andrew | | | lysis of the axial images follows. L3-4: Within normal limits. | | | L4-5: There is mild desiccation change to the nucleus pulposus | | | and a minimal (2-3 mm) broad-based di sk bulge centrally. This does | | | not produce neural encroachment. L5-S1: There is a small (3 mm) | | | broad-based disk bulge centrally without central canal or foraminal e | | | ncroachment. No other abnormalities. IMPRESSION: 1. EARLY | | | DEGENERATIVE DISK DISEASE CHANGES AT L4-5 AND L5-S1, WITHOUT NEURAL | | | IMPINGEMENT. Dictated Date/Time: 01/23/2011 15:25 Transcribed | | | Date/Time: 01/23/2011 17:08 Vocational Nurse: | | | <Electronically Signed by Laz Eller MD> 01/24/11 0733 | | + + + + + | Procedure Note | + + | Kei, Rad Conversion - 07/25/2013 3:[address] [facility] | | Diagnostic Imaging Department [address] [place] [address] | | MRI OF THE LUMBAR SPINE, 01/23/2011 CLINICAL HISTORY: | | LOW BACK PAIN. TECHNIQUE: Sagittal T1, T2, and STIR, coronal T2 and axial T1 and | | T2-weighted sequences are reviewed. FINDINGS: The conus medullaris and cauda equina | | show a normal signal and appearance. Alignment of the lumbar spine is normal. No areas | | of abnormal marrow signal are seen. Incidental note is made of small follicular cysts on | | both ovaries but no other adjacent abnormalities are noted. Level by level analysis of | | the axial images follows. L3-4: Within normal limits. L4-5: There is mild desiccation | | change to the nucleus pulposus and a minimal (2-3 mm) broad-based disk bulge centrally. | | This does not produce neural encroachment. L5-S1: There is a small (3 mm) broad-based | | disk bulge centrally without central canal or foraminal encroachment. No other | | abnormalities. IMPRESSION: 1. EARLY DEGENERATIVE DISK DISEASE CHANGES AT L4-5 AND | | L5-S1, WITHOUT NEURAL IMPINGEMENT. Dictated Date/Time: 01/23/2011 15:25Transcribed | | Date/Time: 01/23/2011 17:08Transcriptionist: <Electronically Signed by Laz Guidry | | MD Rafita> 01/24/11 0733 | |lysis of the axial images follows. | | | |L3-4: Within normal limits. | | | |L4-5: There is mild desiccation change to the nucleus pulposus and a minimal (2-3 mm) broa d-based di | |sk bulge centrally. This does not produce neural encroachment. | | | |L5-S1: There is a small (3 mm) broad-based disk bulge centrally without central canal or f oraminal e | |ncroachment. No other abnormalities. | | | |IMPRESSION: | |1. EARLY DEGENERATIVE DISK DISEASE CHANGES AT L4-5 AND L5-S1, WITHOUT NEURAL IMPINGEMENT. | | | |Dictated Date/Time: 01/23/2011 15:25 | |Transcribed Date/Time: 01/23/2011 17:08 | |Vocational Nurse: | |<Electronically Signed by Laz Eller MD> 01/24/11 0733 | + + + +---------+ + + | Performing | Address | City/State/Zipcode | Phone Number | | Organization | | | | + +---------+ + + | [place] | | | | | [place] | | | | + +---------+ + + documented in this encounter Visit Diagnoses Not on filedocumented in this encounter"
--- OUTSIDE RECORDS SUMMARY | ~2020-04-01 | XMS | Encounter Summary ---
Demographics + + + | Address | [address] | | | [place] [address] | + + + | Home Phone | | + + + | Preferred Language | Unknown | + + + | Marital Status | | + + + | Taoist Affiliation | 1013 | + + + | Race | White | + + + | Ethnic Group | Not or | + + + Author + + + | Author | [facility] | | | and [place] | + + + | Organization | [facility] | | | [...] Team Providers + +------+ + | Care Cigar Making Machine Supervisor Name | Role | Phone | + +------+ + | No, Physician | PCP | Unavailable | + +------+ + Reason for Visit +--------+--------+ + | Reason | Onset | Comments | | | Date | | +--------+--------+ + | Other | 10/22/ | Gayathri wanted to let Dr. Muller/Nurse know that her appt | | | 2012 | with Juan has been moved to this 10/24/12. | +--------+--------+ + Encounter Details +--------+ + + + + | Date | Type | Department | Care Team | Description | +--------+ + + + + | 10/22/ | Telephone | [facility] | Kane Muller | Other (Gayathri wanted | | 2012 | | [facility] [address] | [address] | to let | | | | [place] | updated address | Yohana/Nurse know | | | | [place] | | that her appt with | | | | [address] | | Juan has been | | | | [phone] | | moved to this | | | | | | 10/24/12. ) | +--------+ + + + + Social [...] + + documented as of this encounter Miscellaneous Notes Telephone Encounter - Melissa Reynoso Chao - 10/22/2012 10:07 AM Garret wanted to let Dr. Cem sevilla/Nurse know that her appt with Juan has been moved to this 10/24/12. Noted, I need to briefly discuss with Dr Martinez documented in this encounter Plan of Treatment Not on filedocumented as of this encounter Visit Diagnoses Not on filedocumented in this encounter"
--- OUTSIDE RECORDS SUMMARY | ~2020-04-01 | XMS | Encounter Summary ---
Demographics + + + | Address | [address] | | | [place] [address] | + + + | Home Phone | | + + + | Preferred Language | Unknown | + + + | Marital Status | | + + + | Worship Affiliation | 1013 | + + + | Race | White | + + + | Ethnic Group | Not or | + + + Author + + + | Author | [facility] | | | and [place] | + + + | Organization | [facility] | | | [...] Team Providers + +------+ + | Care Chemist Intern Name | Role | Phone | + +------+ + PCP | Unavailable | + +------+ + Encounter Details +--------+ + + + + | Date | Type | Department | Care Team | Description | +--------+ + + + + | 08/22/ | [facility] | [facility] | Kane Muller | | | 2011 | Encounter | MED CTR XRAY [address] | [address] | | | | | [place] | updated address | | | | | [place] [address] | | | | | | [phone] | | | +--------+ + + + [...] + + documented as of this encounter Medications at Time of Discharge + + + +---------+ + + | Medication | Sig | Dispensed | Refills | Start | End Date | | | | | | Date | | + + + +---------+ + + | ibuprofen | Take one tablet 2-3 | | 0 | 07/28/19 | | | (ADVIL,MOTRIN) 800 | times daily as | | | 12 | | | MG tablet | needed | | | | | + + + +---------+ + + | Methocarbamol | Take 750 mg by mouth | | 0 | 07/28/19 | | | (ROBAXIN-750 PO) | every 6 hours. | | | 12 | 3 | + + + +---------+ + + | Methocarbamol | TABS-Take one tablet | | 0 | 07/28/19 | | | (ROBAXIN-750 PO) | every 6-8 hours as | | | 12 | 3 | | | needed. | | | | | + + + +---------+ + + documented as of this encounter Plan of Treatment Not on filedocumented as of this encounter Procedures + +--------+ + + + | Procedure Name | Priori | Date/Time | Associated Diagnosis | Comments | | | ty | | | | + +--------+ + + + | MRI LUMBAR SPINE WO | | 08/23/2011 | | Results for this | | CONTRAST | | 8:30 AM | | procedure are in the | | | | PST | | results section. | + +--------+ + + + documented in this encounter Results MRI Lumbar Spine wo Contrast (08/23/2011 8:30 AM PST) + + | Specimen | + + | | + + + + + | Narrative | Performed At | + + + | [facility] Diagnostic Imaging Department | [facility] | | [address] | [facility] | | MRI LUMBAR SPINE WITHOUT | DIAG IMG | | CONTRAST: 08/23/2011 CLINICAL HISTORY: LUMBAR SPRAIN, BACK | | | PAIN. DATE OF INJURY 07/27/2011. COMPARISON: 01/23/2011 lumbar | | | spine MRI. TECHNIQUE: Multiplanar, multisequence MR imaging of | | | the lumbar spine without contrast. FINDINGS: There is normal | | | alignment, height, and signal in the visualized vertebral bodies. | | | Disk de siccation and mild disk narrowing at L4-5 and L5-S1, | | | unchanged. The conus is appropriately terminati ng at the | | | thoracolumbar junction. The following levels are evaluated in | | | the axial plane: L3-4: Unremarkable and unchanged. L4-5: | | | Small central disk protrusion and annular tear. Mild facet | | | arthrosis bilaterally. No signif icant compromise of the central | | | spinal canal or neural foramen. This level is unchanged. | | | L5-S1: Slightly larger central disk protrusion. Mild facet | | | arthrosis. No significant narrowing of the central spinal canal | | | or neural foramen. Dominant follicle in the visible portion of | | | the left ovary. Free fluid in the pelvis is likely physi ologic. | | | IMPRESSION: EARLY DEGENERATIVE DISK DISEASE AT L4-5 AND AND | | | L5-S1, VERY SLIGHTLY PROGRESSIVE AT L5-S1 . THESE CHANGES DO NOT | | | COMPROMISE THE CENTRAL SPINAL CANAL OR NEURAL FORAMEN. Dictated | | | Date/Time: 08/23/2011 11:29 Transcribed Date/Time: 08/23/2011 | | | 11:51 Audio Video Mechanic: <Electronically Signed by Epi Alvares | | | MD Ankur> 08/23/11 1239 | | + + + + + | Procedure Note | + + | Kevyn Choudhury Conversion - 07/25/2013 4:52 PM [facility] | | Diagnostic Imaging Department [address] [place] [address] | | MRI LUMBAR SPINE WITHOUT CONTRAST: 08/23/2011 CLINICAL | | HISTORY: LUMBAR SPRAIN, BACK PAIN. DATE OF INJURY 07/27/2011. COMPARISON: 01/23/2011 | | lumbar spine MRI. TECHNIQUE: Multiplanar, multisequence MR imaging of the lumbar spine | | without contrast. FINDINGS: There is normal alignment, height, and signal in the | | visualized vertebral bodies. Disk desiccation and mild disk narrowing at L4-5 and | | L5-S1, unchanged. The conus is appropriately terminating at the thoracolumbar junction. | | The following levels are evaluated in the axial plane: L3-4: Unremarkable and | | unchanged. L4-5: Small central disk protrusion and annular tear. Mild facet arthrosis | | bilaterally. No significant compromise of the central spinal canal or neural foramen. | | This level is unchanged. L5-S1: Slightly larger central disk protrusion. Mild facet | | arthrosis. No significant narrowing of the central spinal canal or neural foramen. | | Dominant follicle in the visible portion of the left ovary. Free fluid in the pelvis is | | likely physiologic. IMPRESSION: EARLY DEGENERATIVE DISK DISEASE AT L4-5 AND AND | | L5-S1, VERY SLIGHTLY PROGRESSIVE AT L5-S1. THESE CHANGES DO NOT COMPROMISE THE CENTRAL | | SPINAL CANAL OR NEURAL FORAMEN. Dictated Date/Time: 08/23/2011 11:29Transcribed | | Date/Time: 08/23/2011 11:51Transcriptionist: <Electronically Signed by Epi Alvares | | MD Ankur> 08/23/11 1239 | | | |L3-4: Unremarkable and unchanged. | | | |L4-5: Small central disk protrusion and annular tear. Mild facet arthrosis bilaterally. No signif | |icant compromise of the central spinal canal or neural foramen. This level is unchanged. | | | |L5-S1: Slightly larger central disk protrusion. Mild facet arthrosis. No significant na rrowing of | | the central spinal canal or neural foramen. | | | |Dominant follicle in the visible portion of the left ovary. Free fluid in the pelvis is li carlton physi | |ologic. | | | |IMPRESSION: EARLY DEGENERATIVE DISK DISEASE AT L4-5 AND AND L5-S1, VERY SLIGHTLY PROGRESSIV E AT L5-S1 | |. THESE CHANGES DO NOT COMPROMISE THE CENTRAL SPINAL CANAL OR NEURAL FORAMEN. | | | |Dictated Date/Time: 08/23/2011 11:29 | |Transcribed Date/Time: 08/23/2011 11:51 | |Audio Video Mechanic: | |<Electronically Signed by Epi Pascual MD> 08/23/11 1239 | + + + +---------+ + + [...]
--- OUTSIDE RECORDS SUMMARY | ~2020-04-01 | XMS | Encounter Summary ---
Demographics + + + | Address | [address] | | | [place] [address] | + + + | Home Phone | | + + + | Preferred Language | Unknown | + + + | Marital Status | | + + + | Muslim Affiliation | 1013 | + + + [...] Team Providers + +------+ + | Care Technical Adjuster Name | Role | Phone | + +------+ + | Radu Fabian MD | PCP | | + +------+ + Reason for Visit +--------+--------+ + | Reason | Onset | Comments | | | Date | | +--------+--------+ + | Other | 10/31/ | Claim Status | | | 2012 | | +--------+--------+ + Encounter Details +--------+ + + + + | Date | Type | Department | Care Team | Description | +--------+ + + + + | 10/31/ | Telephone | [facility] | Kane Muller | Other (Claim Status) | | 2012 | | OCCUPATIONAL HEALTH | MD [address] | | | | | [address] | updated address | | | | | [address] | | | | | | [place] | | | | | | [address] | | | | | | [phone] | | | +--------+ + + + [...] this encounter Miscellaneous Notes Telephone Encounter - Noemí Watters J - 10/31/2012 4:42 PM PDTMelissa form [place] spence like to talk to you regarding IW. [phone]. See if we can find a time in my schedule that works for her. documented in this encounter Plan of Treatment Not on filedocumented as of this encounter Visit Diagnoses Not on filedocumented in this encounter"
--- OUTSIDE RECORDS SUMMARY | ~2020-04-01 | XMS | Encounter Summary ---
Demographics + + + | Address | [address] | | | [place] [address] | + + + | Home Phone [...] Author + + + | Author | [facility] | | | and [place] | + + + | Organization | [facility] | | [...] Team Providers + +------+ + | Care Director Of Slot Operations Name | Role | Phone | + +------+ + | Radu Fabian MD | PCP | | + +------+ + Reason for Visit +--------+--------+ + | Reason | Onset | Comments | | | Date | | +--------+--------+ + | Other | 12/13/ | | | | 2012 | | +--------+--------+ + Encounter Details +--------+ + + + + | Date | Type | Department | Care Team | Description | +--------+ + + + + | 12/13/ | Telephone | [facility] | Yohana Kane | Other | | 2012 | | OCCUPATIONAL HEALTH | MD [address] | | | | | [address] | updated address | | | | | [address] | | | | | | [place] | | | | | | [address] | | | | | | [phone] | | | +--------+ + + + [...] this encounter Miscellaneous Notes Telephone Encounter - Soledad Navarrete - 12/13/2012 4:16 PM Linda from [employer] called with regards to IW, was wondering the status of on claim as she got a letter fro m [employer] stating that the hip will not be covered and any other tx on that will have [facility] private insurance. Soledad also wanted to let the Dr know that IW has been white water r afting how does that play in on injury?? Noted, please inform that IW should be scheduled soon for a closing eval. ..............ple ase check our records to make sure IW has an appt scheduled, if not, we need to make one.Wanda ctronically signed by Kane Muller MD at 12/28/2012 8:10 AM PDTdocumented in this encounter Plan of Treatment Not on filedocumented as of this encounter Visit Diagnoses Not on filedocumented in this encounter"
--- OUTSIDE RECORDS SUMMARY | ~2020-04-01 | XMS | Clinical Summary ---
Demographics + + + | Address | [address] | | | [place] [address] | + + + | Home Phone [...] + + + | Author | [facility] | | | and [place] | + + + | Organization | [facility] | | | [...] Team Providers + +------+ + | Care Hand Grinder Name | Role | Phone | + +------+ + | Radu Prater MD | PCP | | + +------+ + Allergies No Known Allergies Medications + + + +---------+------+------+-------+ | Medication | Sig | Dispensed | Refills | Star | End | Statu | | | | | | t | Date | s | | | | | | Date | | | + + + +---------+------+------+-------+ | ibuprofen | Take one tablet 2-3 | | 0 | 02/1 | | Activ | | (ADVIL,MOTRIN) 800 | times daily as | | | 0/20 | | e | | MG tablet | needed | | | 12 | | | + + + +---------+------+------+-------+ | rizatriptan | Take 10 mg by mouth | | 0 | | | Activ | | (MAXALT-LEAF CONDITIONER HELPER) 10 mg | as needed for | | | | | e | | disintegrating | Migraine. May repeat | | | | | | | tablet | in 2 hours if | | | | | | | | needed | | | | | | + + + +---------+------+------+-------+ | SUMAtriptan | Take 1 tablet by | 30 | 0 | 07/1 | | Activ | | (IMITREX) 25 mg | mouth as needed. | tablet | | 1/20 | | e | | tablet | | | | 18 | | | + + + +---------+------+------+-------+ +---+ + | | Additional | | | InformationPatient | | | not taking. Reason: | | | Not Available, | | | Reported on | | | 08/28/2018 4:57 PM | +---+ + + + +--------+---+------+---+-------+ | metoclopramide | Take 1 tablet by | 15 | 0 | 07/1 | | Activ | | (REGLAN) 10 mg | mouth every 6 hours | tablet | | 07/07 | | e | | tablet | as needed for | | | 18 | | | | | Nausea. | | | | | | + + +--------+---+------+---+-------+ | topiramate | Take 100 mg by mouth | | 0 | | | Activ | | (TOPAMAX) 25 mg | Daily. | | | | | e | | tablet | | | | | | | + + +--------+---+------+---+-------+ | | Take 1 tablet by | 15 | 0 | 03/1 | | Activ | | HYDROcodone-acetamin | mouth every 6 hours | tablet | | 20 | | e | | ophen (NORCO) 5-325 | as needed. | | | 19 | | | | mg per tablet | | | | | | | + + +--------+---+------+---+-------+ | ondansetron | Take 1 tablet by | 12 | 0 | 03/1 | | Activ | | (ZOFRAN ODT) 8 mg | mouth every 8 hours | tablet | | 3/20 | | e | | disintegrating | as needed for | | | 19 | | | | tablet | Nausea. | | | | | | + + +--------+---+------+---+-------+ Active Problems + + + | Problem | Noted Date | + + + | LUMBAR DISC DISPLACEMENT | | + + + | BACK PAIN, LUMBAR | | + + + | TROCHANTERIC BURSITIS | | + + + | LUMBAR RADICULOPATHY | | + + + | SACROILIITIS | | + + + | DEGENERATIVE DISC DISEASE, LUMBAR SPINE | | + + + | DEPRESSION U/S | | + + + Social History + +-------+ [...] + + +---------+ + | Yes | | | | + + +---------+ + + + + | Sex Assigned at | Date Recorded | | | | + + + | Not on file | | + + + Last Filed Vital Signs + + + + + | Vital Sign | Reading | Time Taken | Comments | + + + + + | Blood Pressure | 108/59 | 08/28/2018 8:53 PM | | | | | PDT | | + + + + + | Pulse | 76 | 08/28/2018 8:53 PM | | | | | PDT | | + + + + + | Temperature | 36.6 C (97.9 F) | 08/28/2018 4:54 PM | | | | | PDT | | + + + + + | Respiratory Rate | 14 | 08/28/2018 8:53 PM | | | | | PDT | | + + + + + | Oxygen Saturation | 98% | 08/28/2018 8:53 PM | | | | | PDT | | + + + + + | Inhaled Oxygen | - | - | | | Concentration | | | | + + + + + | Weight | 71.7 kg (158 lb 1.1 | 08/28/2018 4:54 PM | | | | oz) | PDT | | + + + + + | Height | 167.6 cm (5' 6") | 08/28/2018 4:54 PM | | | | | PDT | | + + + + + | Body Mass Index | 25.51 | 08/28/2018 4:54 PM | | | | | PDT | | + + + + + Plan of Treatment + + + + + | Health Maintenance | Due Date | Last | Comments | | | | Done | | + + + + + | Hepatitis C | | | | | Screening | 0 | | | + + + + + | Medication | | | | | Management | 0 | | | + + + + + | Cervical Cancer | | | | | Screening (Pap) | 0 | | | + + + + + | Med Mgmt: BUN | | 08/29/19 | | | | 0 | 19 | | + + + + + | Med Mgmt: Cr | | 08/29/19 | | | | 0 | 19 | | + + + + + | Med Mgmt: eGFR | | 08/29/19 | | | | 0 | 19 | | + + + + + | Vaccine: | | 01/19/20 | | | Dtap/Tdap/Td (2 - | 0 | 10 | | | Td) | | | | + + + + + | Vaccine: Influenza | | | | | (#1) | 0 | | | + + + + + Results Not on filefrom Last 3 Months Insurance + +--------+ +--------+ +---------+--------+ | Payer | Benefi | Subscriber | Effect | Phone | Address | Type | | | t Plan | ID | manav | | | | | | / | | Dates | | | | | | Group | | | | | | + +--------+ +--------+ +---------+--------+ | [employer] | [place]OR | [id number] | 07/27/19 | [phone] | | Indemn | | | AND | | 12-Pre | 0 | | ity | | | [place] | | sent | | | | | | [place] | | | | | | | | [place] | | | | | | + +--------+ +--------+ +---------+--------+ | BCBS | BCBS | [id number] | 06/18/19 | | | PPO | | | OOS | 8 | 18-Pre | | | | | | PPO | | sent | | | | + +--------+ +--------+ +---------+--------+ + +--------+ +--------+ + + | Guarantor Name | Accoun | Relation to | Date | Phone | Billing Address | | | t Type | Patient | of | | | | | | | | | | + +--------+ +--------+ + + | Gayathri Palma | Person | Self [birth year] | [address] | | | al/Fam | | 1979 | [phone] | [place], [place] | | | [place] | | | [address] (Home) | [address] | + +--------+ +--------+ + + | Gayathri Palma | 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
--- OUTSIDE RECORDS SUMMARY | ~2020-04-01 | XMS | Encounter Summary ---
Demographics + + + | Address | [address] | | | [place] [address] | + + + | Home Phone | | + + + | Preferred Language | Unknown | + + + | Marital Status | | + + + | Judaism Affiliation | 1013 | + + + | Race | White | + + + | Ethnic Group | Not or | + + + Author + + + | Author | [facility] | | | and [place] | + + + | Organization | [facility] | | | and [...] Team Providers + +------+ + | Care Instructional Media Services Technician Name | Role | Phone | + +------+ + | Radu Prater MD | PCP | | + +------+ + Encounter Details +--------+ + + + + | Date | Type | Department | Care Team | Description | +--------+ + + + + | 10/22/ | Imaging | [facility] TAVARE[facility] | Provider, | | | 2018 | Exam | [facility] | MD Jennifer [address] | | | | | IMAGING [address] | [address] | | | | | [address] [place] | [place] [address] | | | | | [place] [address] | | | | | | [phone] | | | +--------+ + + + [...] | + +--------+ + + + | XR SINUSES 3 + VW | Routin | 08/07/2016 | | Results for this | | | e | 3:20 PM | | procedure are in the | | | | PST | | results section. | + +--------+ + + + documented in this encounter Results XR Sinuses 3 + Vw (08/07/2016 3:20 PM PST) + + | Specimen | + + | | + + + + + | Narrative | Performed At | + + + | External films for comparison only | [facility] | | | | | No results will be in the chart. | | + + + + +---------+ + + | Performing | Address | City/State/Zipcode | Phone Number | | Organization | | | | + +---------+ + + | [facility] | | | | + +---------+ + + documented in this encounter Visit Diagnoses Not on filedocumented in this encounter"
--- OUTSIDE RECORDS SUMMARY | ~2020-04-01 | XMS | Encounter Summary ---
Demographics + + + | Address | [address] | | | [place] [address] | + + + | Home Phone [...] Team Providers + +------+ + | Care Trim Master Operator Name | Role | Phone | + [...] Description | +--------+---------+ + + + | 09/02/ | Office | [facility] | Kane Muller | Lumbar sprain | | 2012 | Visit | [facility] | MD Carlton Need | (Primary Dx); | | | | [facility] [address] | updated address | Radiculitis of leg; | | | | [address] | | Place of occurrence, | | | | [place], [place] | | industrial places | | | | [address] | | and premises | | | | [phone] | | | +--------+---------+ + + + [...] + + + | Blood Pressure | 116/74 | 09/02/2012 1:06 PM | | | | | PDT | | + + + + + | Pulse | 64 | 09/02/2012 1:06 PM | | | | | PDT | | + + + + + | Temperature | 37.1 C (98.7 F) | 09/02/2012 1:06 PM | | | | | PDT | | + + + + + | Respiratory Rate | 16 | 09/02/2012 1:06 PM | | | | | PDT | | + + + + + | Oxygen Saturation | - | - | | + + + + + | Inhaled Oxygen | - | - | | | Concentration | | | | + + + + + | Weight | 72.6 kg (160 lb) | 09/02/2012 1:06 PM | | | | | PDT | | + + + + + | Height | 167.6 cm (5' 6") | 09/02/2012 1:06 PM | | | | | PDT | | + + + + + | Body Mass Index | 25.82 | 09/02/2012 1:06 PM | | | | | PDT | | + + + + + documented in this encounter Progress Notes Kane Muller MD - 09/02/2012 8:04 PM PDTSee dictation [id number] nikki d by Kane Muller MD at 09/02/2012 8:05 PM Kane Phan MD - 09/03/19 13 12:00 AM PDT , OFFICE VISIT Claim Number: [id number] Date of Injury: 07/27/2011 Employer: [employer] Guarantor: Musa Jenkins COMPLAINT: Back injury and left radiculitis, scheduled followup. S: The injured worker is 32 years of age, here for a scheduled followup. We had requested an MRI of the left hip, which was recommended by the [facility] examiner, and for reasons that are not entirely clear, the claims adjustor has denied authorization for this and the only info rmation we have is that the left hip is not an accepted condition on this claim. I have ask ed my staff to make an inquiry and protest this decision, requesting reconsideration, given that the [facility] examiner has very clearly indicated that this would be the appropriate treatm ent approach at this point in time. Gayathri is given this information and my explanation diaz t I am not clear why it was denied, but we will try to find answers, and I am going to sche dule her to come back and see me in about a week's period of time, hopefully to have a bett er understanding of why that request has been denied. She voiced understanding and agreemen t. O: No dedicated exam performed. Time was spent discussing claims management and coordinatio n of care/treatment plan counselling. Ten minutes of time was spent face to face. IMAGING/DIAGNOSTICS: I believe MRI of the left hip is indicated for diagnostic purposes, p ending reconsideration on authorization. PENDING INTERVENTIONS: Continue conservative measures. A: Lumbar sprain with left radiculitis, possible left hip condition. P: We will pursue getting authorization for left hip MRI, as recommended by [facility] examiners. I will ask the injured worker to come back in a week's period of time, hopefully having sec ured that after communicating with the claim's industrial maintenance manager. She voiced understanding and agreem ent. E: Regular work. R: No specific restrictions at this point in time, although she will use common sense prot ection of the left hip with minimal pivoting, kneeling, squatting, or climbing. Impairment undetermined, based on current objective findings. It remains unclear. She is not deemed MMI status for the above reasons. John Muller MD / DGM JOB #: [id number] signed by Kane Muller MD at 09/03/2012 6:26 PM PDTd ocumented in this encounter Miscellaneous Notes Plan of Care - ONBASE SCAN WANM - 09/02/2012 12:00 AM PDT documented in this encounter [...]
--- OUTSIDE RECORDS SUMMARY | ~2020-04-01 | XMS | Encounter Summary ---
Demographics + + + | Address | [address] | | | [place] [address] | + + + | Home Phone | | + + + | Preferred Language | Unknown | + + + | Marital Status | | + + + | Judaism Affiliation | 1013 | + + + | Race | White | + + + | Ethnic Group | Not or | + + + Author + + + | Author | [facility] | | | and [place] | + + + | Organization | [facility] | | [...] Team Providers + +------+ + | Care Welder Fitter Gas Name | Role | Phone | + +------+ + | No, Physician | PCP | Unavailable | + +------+ + Reason for Visit +--------+--------+ + | Reason | Onset | Comments | | | Date | | +--------+--------+ + | Other | 09/18/ | | | | 2012 | | +--------+--------+ + Encounter Details +--------+ + + + + | Date | Type | Department | Care Team | Description | +--------+ + + + + | 09/18/ | Telephone | [facility] | Kane Muller | Other | | 2012 | | [facility] [address] | MD Carlton Need | | | | | [address] | updated address | | | | | [place] | | | | | | [address] | | | | | | [phone] | | | +--------+ + + + [...] Miscellaneous Notes Telephone Encounter - Noemí Watters - 09/18/2012 4:12 PM Linda Puga from [employer] would like to talk to you regarding IW at your convenience please call [phone] Noted, I will call her documented in this encounter Plan of Treatment Not on filedocumented as of this encounter Visit Diagnoses Not on filedocumented in this encounter"
--- OUTSIDE RECORDS SUMMARY | ~2020-04-01 | XMS | Encounter Summary ---
Demographics + + + | Address | [address] | | | [place] [address] | + + + | Home Phone | | + + + | Preferred Language | Unknown | + + + | Marital Status | | + + + | Islam Affiliation | 1013 | + + + | Race | White | + + + | Ethnic Group | Not or | + + + Author + + + | Author | [facility] | | | and [place] | + + + | Organization | [facility] | | [...] Team Providers + +------+ + | Care Social Secretary Name | Role | Phone | + +------+ + PCP | Unavailable | + +------+ + Encounter Details +--------+ + + + + | Date | Type | Department | Care Team | Description | +--------+ + + + + | 11/06/ | Hospital | [facility] | | | | 1991 | Encounter | MED CTR EM[facility]Y | | | | | | [place] [address] | | | | | | [place] | | | | | | [address] | | | | | | [phone] | | | +--------+ + + + [...]
--- OUTSIDE RECORDS SUMMARY | ~2020-04-01 | XMS | Encounter Summary ---
Demographics + + + | Address | [address] | | | [place] [address] | + + + | Home Phone | | + + + | Preferred Language | Unknown | + + + | Marital Status | | + + + | Jain Affiliation | 1013 | + + + | Race | White | + + + | Ethnic Group | Not or | + + + Author + + + | Author | [facility] | | | and [place] | + + + | Organization | [facility] | | | [...] Team Providers + +------+ + | Care Solder Leveler Printed Circuit Boards Name | Role | Phone | + +------+ + PCP | Unavailable | + +------+ + Encounter Details +--------+ + + + + | Date | Type | Department | Care Team | Description | +--------+ + + + + | 11/27/ | Hospital | [facility] | Shaun Fairbanks MD | | | 2000 - | Encounter | MED CTR [facility] | [address] | | | | | [facility] [address] | [place] | | | 11/29/ | | [place], | [address] | | | 2000 | | [place] [address] | | | | | | [phone] | | | +--------+ + + + [...]
--- OUTSIDE RECORDS SUMMARY | ~2020-04-01 | XMS | Encounter Summary ---
Demographics + + + | Address | [address] | | | [place] [address] | + + + | Home Phone | | + + + | Preferred Language | Unknown | + + + | Marital Status | | + + + | Catholic Affiliation | 1013 | + + + | Race | White | + + + | Ethnic Group | Not or | + + + Author + + + | Author | [facility] | | | and [place] | + + + | Organization | [facility] | | | [...] Team Providers + +------+ + | Care Claim Adjuster Name | Role | Phone | + +------+ + PCP | Unavailable | + +------+ + Encounter Details +--------+ + + + + | Date | Type | Department | Care Team | Description | +--------+ + + + + | 03/25/ | Hospital | [facility] | Angela, | | | 2008 | Encounter | MED CTR EMERGENCY | Carlton Rangel MD [address] | | | | | [place] [address] | [place] | | | | | [place] | [place] [address] | | | | | [address] | [phone] | | | | | [phone] | | | +--------+ + + + [...]
--- OUTSIDE RECORDS SUMMARY | ~2020-04-01 | XMS | Encounter Summary ---
Demographics + + + | Address | [address] | | | [place] [address] | + + + | Home Phone | | + + + | Preferred Language | Unknown | + + + | Marital Status | | + + + | Pentecostalism Affiliation | 1013 | + + + | Race | White | + + + | Ethnic Group | Not or | + + + Author + + + | Author | [facility] | | | and [place] | + + + | Organization | [facility] | | | [...] Team Providers + +------+ + | Care Fuel Storage Technician Name | Role | Phone | + +------+ + PCP | Unavailable | + +------+ + Encounter Details +--------+ + + + + | Date | Type | Department | Care Team | Description | +--------+ + + + + | 04/05/ | [facility] | [facility] | Radu Prater MD | | | 2009 | Encounter | MED CTR XRAY [address] | | | | | [place] | [place], [place] | | | | | [place] [address] | [address] | | | | | [phone] | | | +--------+ + + + [...]
--- OUTSIDE RECORDS SUMMARY | ~2020-04-01 | XMS | Encounter Summary ---
Demographics + + + | Address | [address] | | | [place] [address] | + + + | Home Phone | | + + + | Preferred Language | Unknown | + + + | Marital Status | | + + + | Bahai Affiliation | 1013 | + + + | Race | White | + + + | Ethnic Group | Not or | + + + Author + + + | Author | [facility] | | | and [place] | + + + | Organization | [facility] | | | and [place] | + + + | Address | Unknown | + + + | Phone | Unavailable | + + + Support + + + + + | Name | Relationship | Address | Phone | + + + + + | Lein Addison | ECON | NA | | | | | [place], [place] | | + + + + + Care Team Providers + +------+ + | Care Sustainability Consultant Name | Role | Phone | + +------+ + | Radu Fabian MD | PCP | | + +------+ + Encounter Details +--------+ + + + + | Date | Type | Department | Care Team | Description | +--------+ + + + + | 12/02/ | Hospital | [facility] | Santosh Shay | | | 2012 - | Encounter | [facility] Negron MD | | | | | [facility] [address] | | | | 12/05/ | | [place], | | | | 2012 | | [place] [address] | | | | | | [phone] | | | +--------+ + + + [...] + + documented as of this encounter Discharge Summaries Santosh Shay MD - 12/04/2012 12:25 [place] [address] Patient Name: PENELOPE VASQUEZ Provider: Santosh Shay MD Unit #: [id number] Location: [address] [place] [address] #: [id number] : 1980 ADMISSION DATE: 12/02/2012 DISCHARGE DATE: 12/06/2012 ADMISSION DIAGNOSES 1. Menorrhagia. 2. Postcoital bleeding. DISCHARGE DIAGNOSES POSTOPERATIVE DAY #2 STATUS POST LAPAROSCOPIC-ASSISTED VAGINAL HYSTERECTOMY, BILATERAL SALP INGECTOMY. HISTORY: The patient is a 32-year-old female with menorrhagia and postcoital bleeding. We p ursued a laparoscopic-assisted vaginal hysterectomy with bilateral salpingectomy on 013. Blood loss was about 25 mL. Surgery was uncomplicated and her postoperative hematocrit was 37%. The patient had moderate pain control after the surgery. Her vital signs were sta ble. She was afebrile in the postoperative course. She was advancing her diet and had not p assed flatus. We have decided to give the patient a suppository this afternoon and if she p asses gas she will go home in the afternoon. After 5:30 pm, the patient was complaining of dizziness and was difficulty ambulation. She was also complaining of obstipation. Her vit al signs were stable and per the RN her exam was stable. Since she lives out of town, the decision was made to keep her till morning. The next morning, she was without complaint an d discharged home. Discharge instructions were reviewed. Warning signs and precautions reviewed. DISCHARGE MEDICINES: Include 1. Ibuprofen 600 mg, 1 p.o. q.6h. p.r.n. 2. [place] 325/5, 1-2 p.o. q.6h. p.r.n. 3. Senna-S 1 p.o. daily to b.i.d. p.r.n. 4. Oxycodone 5 mg, 1 p.o. q.6h. p.r.n. for severe pain. She will follow up with me in 2 and 6 weeks. Warning signs and precautions reviewed. DICTATED BY: Santosh Shay MD Gynecology JOB #: [id number] EXT JOB #:[id number] cc: [facility] <<Signature on File>> Santosh Shay MD12/09/12 0952 <Electronically signed by Santosh Shay MD> documented in this encounter Medications at Time of Discharge [...] + + + +---------+ + + | FLUoxetine | Take 20 mg by mouth | | 0 | | | | (PROZAC) 20 mg | Daily. | | | | 8 | | capsule | | | | | | + + + +---------+ + + | gabapentin | Take 1 capsule by | 90 | 0 | 10/16/19 | | | (NEURONTIN) 300 mg | mouth 3 times daily. | capsule | | 13 | 8 | | capsuleIndications: | | | | | | | Lumbar back sprain | | | | | | + + + +---------+ + + | LORazepam (ATIVAN) | Take 1 tablet by | 2 | 0 | 08/21/19 | | | 0.5 mg | mouth Twice daily | tablet | | 13 | 4 | | tabletIndications: | as needed for | | | | | | Lumbar sprain, Place | Anxiety or Insomnia. | | | | | | of occurrence, | Take one tablet 45 | | | | | | industrial places | minutes prior to | | | | | | and premises | MRI, may repeat x | | | | | | | one prn | | | | | + + + +---------+ + + | methocarbamol | Take 1 tablet by | 90 | 0 | 09/24/19 | | | (ROBAXIN-750) 750 mg | mouth 4 times daily. | tablet | | 13 | 8 | | tablet | | | | | | + + + +---------+ + + | | daily | | 0 | 02/29/20 | | | norgestimate-ethinyl | | | | 12 | 8 | | estradiol (ORTHO | | | | | | | TRI-CYCLEN, 28,) | | | | | | | 0.18/0.215/0.25 | | | | | | | mg-35 mcg TABS | | | | | | + + + +---------+ + + documented as of this encounter Miscellaneous Notes Op Note - Santosh Shay MD - 12/02/2012 3:08 [place] [address] Patient Name: PENELOPE VASQUEZ Provider: Santosh Shay MD Unit #: [id number] Location: [address] [place] [address] #: [id number] : 1980 DATE: 12/02/2012 PREOPERATIVE DIAGNOSES: 1. Menorrhagia. 2. Postcoital bleeding. POSTOPERATIVE DIAGNOSES: 1. MENORRHAGIA. 2. POSTCOITAL BLEEDING. PROCEDURE: Laparoscopic-assisted vaginal hysterectomy with bilateral salpingectomy. SURGEON: Santosh Shay MD HOISTING ENGINEER: Hima Fernandez MD ANESTHESIOLOGIST: Haris Pineda MD ANESTHESIA: General endotracheal. FINDINGS: Enlarged, slightly irregular-shaped uterus, sounding to 11 cm. Normal tubes and ovaries. Normal appendix. Normal right upper quadrant. BLOOD LOSS: 25 mL. IV FLUIDS: 1650 mL crystalloid. URINE OUTPUT: 150 mL concentrated urine. COMPLICATIONS: None. PATHOLOGY: Uterus with cervix and bilateral fallopian tubes. HISTORY: The patient is a 32-year-old female with longstanding postcoital bleeding and men orrhagia. We did discuss performing endometrial ablation, but there was concern that her po stcoital bleeding would persist. We did discuss this with medical services coordinator with her [facility] and did receive permission to pursue a laparoscopic-assisted vaginal hysterectomy j ust prior to surgery. The patient also desired to add bilateral salpingectomy. Her uterus d id measured 11 cm, which would have decreased her chance of success with endometrial ablati on as well. PROCEDURE: The patient was taken to the operating room after informed consent was obtained and questions were answered. She did receive preoperative Ancef and compression stockings were in place. She underwent induction with general anesthetic. Exam showed a gravid, ante verted uterus without obvious adnexal mass. She was prepped and draped in the normal steril e fashion. I then placed a ClearView uterine manipulator into the uterine cavity. A Junior c atheter was placed, draining clear urine. I regloved and directed by attention towards the umbilicus. The periumbilical area was injected with Marcaine and epinephrine solution. A 1 0 mm umbilical incision was performed. I placed a 10 mm trocar under direct visualization. A pneumoperitoneum was performed. Immediate inspection failed to show any evidence of sharp or blunt trauma to the intraabdo emiliano or pelvic contents. She was placed in Trendelenburg. Two lateral 5 mm ports were tiffany lana approximately 2 cm medial and 5 cm cephalad to the anterior superior iliac crest. Her p jose was inspected. Round ligament insertion was normal. Anterior cul-de-sac normal. Her uterus was enlarged a nd irregularly shaped. Tubes and ovaries appeared normal. Course of the ureters appeared no rmal, posterior cul-de-sac normal, appendix normal, right upper quadrant normal. Starting from the patient's left, the fallopian tube was transected off of the ovary with the use of a 10 mm LigaSure device. I then coagulated and transected the utero-ovarian liga ment, followed by the round ligament. I then continued along the long axis of the uterus, e xcising posterior and anterior leaves of the broad ligament until I reached the lower uteri ne segment. This was repeated on the contralateral side. I then used monopolar cautery, traction and countertraction to dissect the bladder off of the lower uterine segment. After this, I returned to the LigaSure device and coagulated and transected the uterine vessels and continued parallel to the uterus until I reached the ba se of the uterosacral ligaments. Next, the instruments were removed. The pneumoperitoneum w as evacuated. Her legs were elevated. A weighted speculum was placed. I then injected Marcaine-vasopressin solution into the cervix. I then performed a circumfe rential incision around the cervix. A posterior colpotomy incision was made, entering into the pelvic cavity. Next, the uterosacral ligaments were clamped, transected and suture lig ated and tagged. The cardinal ligaments were clamped, transected, and suture ligated. I ent ered into the anterior space sharply at this point without difficulty. I took 2 more bites on each side to clamp, transect, and suture ligate all of the vascular attachments. After this, the uterus was removed. Moist packing was placed into the pelvic cavity. No ac tive bleeding was noted. I then performed 2 Martell type culdoplasty stitches to elevate the vaginal apex and to secure the vaginal apex to the uterosacral ligaments. I then removed t he packing and performed a pursestring-like closure of the peritoneum, followed by closure of the vaginal cuff with interrupted 0 Vicryl suture. After this, we re-instituted her pneumoperitoneum. Her legs were lowered. She was placed i n Trendelenburg. The pelvis was irrigated. All vascular pedicles were hemostatic. No other abnormalities or complications were noted. The lateral trocars were removed under direct visualization. The midline trocar was removed after the pneumoperitoneum was evacuated. I di d close the umbilical incision with an 0 Vicryl fascial stitch, followed by a 4-0 Monocryl subcuticular stitch. The lateral incisions were closed with Steri-Strips. All the wounds we re covered with bandages. She was taken out of anesthesia to recovery in stable condition. DICTATED BY: Santosh Shay MD Gynecology JOB #: [id number] EXT JOB #:[id number] <<Signature on File>> Santosh Shay MD12/03/12 0709 <Electronically signed by Santosh Shay MD> documented in this encounter Plan of Treatment Not on filedocumented as of this encounter Procedures + +--------+ + + + | Procedure Name | Priori | Date/Time | Associated Diagnosis | Comments | | | ty | | | | + +--------+ + + + | HEMOGLOBIN AND | Routin | 12/03/2012 | | Results for this | | HEMATOCRIT | e | 6:37 AM | | procedure are in the | | | | PDT | | results section. | + +--------+ + + + | CBC NO DIFFERENTIAL | Routin | 12/02/2012 | | Results for this | | | e | 10:43 AM | | procedure are in the | | | | PDT | | results section. | + +--------+ + + + documented in this encounter Results Hemoglobin and Hematocrit (12/03/2012 6:37 AM PDT) + + + + + + | Component | Value | Ref Range | Performed | Pathologist | | | | | At | Signature | + + + + + + | Hemoglobin | 12.5 (A) | 11.5 - 16.0 | [facility] | | | | | gm/dL | [facility] | | | | | [facility] | | | | | | [facility]ATORY | | + + + + + + | Hematocrit | 37.2 (A) | 34.0 - 47.0 % | [facility] | | | | | | [facility] | | | | | | [facility] | | | | | | [facility] - | | | | | | LABORATORY | | + + + + + + + + | Specimen | + + | | + + + + + + + | Performing | Address | City/State/Zipcode | Phone Number | | Organization | | | | + + + + + | [facility] | [address] | [place], [place] | [phone] | | [facility] | | [address] | | | - LABORATORY | | | | + + + + + | [facility] | [address] | [place] | | | [facility] | | [address], [facility] | | | - LABORATORY | | | | + + + + + CBC no Differential (12/02/2012 10:43 AM PDT) + +-------+ + + + | Component | Value | Ref Range | Performed | Pathologist | | | | | At | Signature | + +-------+ + + + | White Blood | 4.9 | 4.0 - 11.0 K/uL | [facility] | | | Cells | | | [facility] | | | | | | [facility] | | | | | | [facility] - | | | | | | LABORATORY | | + +-------+ + + + | Red Blood | 4.45 | 3.70 - 5.20 | [facility] | | | Cells | | M/uL | [facility] | | [facility] | | | | | | [facility] - | | | | | | LABORATORY | | + +-------+ + + + | Hemoglobin | 14.3 | 11.5 - 16.0 | [facility] | | | | | gm/dL | [facility] | | | | | | [facility] | | | | | | [facility] - | | | | | | LABORATORY | | + +-------+ + + + | Hematocrit | 42.7 | 34.0 - 47.0 % | [facility] | | | | | | [facility] | | | | | [facility] | | | | | | [facility] - | | | | | | LABORATORY | | + +-------+ + + + | MCV | 95.9 | 83.0 - 101.0 fL | [facility] | | | | | | [facility] | | | | | | [facility] | | | | | | [facility] - | | | | | | LABORATORY | | + +-------+ + + + | MCH | 32.2 | 28.0 - 35.0 pg | [facility] | | | | | | [facility] | | | | | | [facility] | | | | | | [facility] - | | | | | | LABORATORY | | + +-------+ + + + | MCHC | 33.6 | 32.0 - 36.0 | [facility] | | | | | g/dL | [facility] | | | | | | [facility] | | | | | | [facility] - | | | | | | LABORATORY | | + +-------+ + + + | RDW-CV | 12.7 | <15.0 % | [facility] | | | | | | [facility] | | | | | | [facility] | | | | | | [facility] - | | | | | | LABORATORY | | + +-------+ + + + | Platelet | 264 | 140 - 440 K/uL | [facility] | | | Count | | | [facility] | | | | | | [facility] | | | | | | [facility]ENTER - | | | | | | LABORATORY | | + +-------+ + + + + + | Specimen | + + | | + + + + + + + | Performing | Address | City/State/[facility] | Phone Number | | Organization | | | | + + + + + | [facility] | [address] | [place] | [phone] | | [facility] | | [address] | | | - LABORATORY | | | | + + + + + | [facility] | [address] | [place] | | | [facility] | | [address], [facility] | | | - LABORATORY | | | | + + + + + documented in this encounter Visit Diagnoses Not on filedocumented in this encounter"
--- OUTSIDE RECORDS SUMMARY | ~2020-04-01 | XMS | Encounter Summary ---
Demographics + + + | Address | [address] | | | [place] [address] | + + + | Home Phone [...] Team Providers + +------+ + | Care Iron Handler Name | Role | Phone | + +------+ + | No, Physician | PCP | Unavailable | + +------+ + Reason for Referral Surgical (Routine) +--------+ + + + + + | Status | Reason | Specialty | Diagnoses / | Referred By | Referred To | | | | | Procedures | Contact | Contact | +--------+ + + + + + | Closed | Specialty | Orthopedic | Diagnoses | Yohana, | Juan, | | | Services | Surgery | Lumbar | Kane | Davie Guidry MD | | | Required | | sprain | MD [place] | [address] | | | | | Sprain of | Need updated | [facility] | | | | | left hip | address | [place], [place] | | | | | Place of | | [address] Phone: | | | | | occurrence, | | [phone] | | | | | industrial | | Fax: | | | | | places and | | [phone] | | | | | premises | | | +--------+ + + + + + Reason for Visit + + + | Reason | Comments | + + + | Back Injury | | + + + Encounter Details +--------+---------+ + + + | Date | Type | Department | Care Team | Description | +--------+---------+ + + + | 10/07/ | Office | [facility] | Kane Muller | Lumbar sprain | | 2012 | Visit | [facility] | MD [place] Need | (Primary Dx); Sprain | | | | [place] [address] | updated address | of left hip; Place | | | | [address] [place] | | of occurrence, | | | | [place], [place] | | industrial places | | | | [address] | | and premises | | | | [phone] | | | +--------+---------+ + + + [...] + + + | Blood Pressure | 102/64 | 10/07/2012 9:52 AM | | | | | PDT | | + + + + + | Pulse | 76 | 10/07/2012 9:52 AM | | | | | PDT | | + + + + + | Temperature | 36.9 C (98.4 F) | 10/07/2012 9:52 AM | | | | | PDT | | + + + + + | Respiratory Rate | 16 | 10/07/2012 9:52 AM | | | | | PDT | | + + + + + | Oxygen Saturation | - | - | | + + + + + | Inhaled Oxygen | - | - | | | Concentration | | | | + + + + + | Weight | 72.6 kg (160 lb) | 10/07/2012 9:52 AM | | | | | PDT | | + + + + + | Height | 167.6 cm (5' 6") | 10/07/2012 9:52 AM | | | | | PDT | | + + + + + | Body Mass Index | 25.82 | 10/07/2012 9:52 AM | | | | | PDT | | + + + + + documented in this encounter Progress Notes Kane Muller MD - 10/07/2012 12:10 PM PDTSee dictation [id number] [id number] d by Kane Muller MD at 10/07/2012 12:11 PM Kane Phan MD - 10/08/19 13 12:00 AM PDT2 [facility] [address] [place] [address] FAX: [phone] OFFICE VISIT Claim Number: [id number] Date of Injury: 07/27/2011 Employer: [employer]. Guarantor: Musa Jane COMPLAINT: Lumbar injury and left hip radiculitis, scheduled followup for discussion of cl aim management aspects. S: The injured worker is 32 years of age who presents for scheduled appointment. We had co ntacted her to ask her to come for the evaluation, following my discussions of the claim wit h her Dr. Steele, associate loan officer for the [employer]. My d iscussions with Dr. Steele are noted in a previous note, and part of that discussion focused on some of the value in having a pre-diagnostic test discussion with the injured worker reg arding the circumstances that have brought us to seek approval from the workers' compensation claims supervisor for this diagnostic testing in order to move the claim forward and in the appropriate direction for appropriate care for the accepted conditions on this claim. I did explain to the injur ed worker some of the difficulties that medical advisors were having connecting the reporte d mechanism of injury for this claim with significant hip pathology that might be found or illuminated on the MR arthrogram. Nevertheless, because there can be confusion over cross s ymptomatology and referred pain, Dr. Steele has agreed that he would talk to the claims theresa alexandru and recommend strongly that approval be given for the MR arthrogram so that we can have a better handle on the pathology in that area, and then better able to make a determinatio n whether we can find any connection with such pathology with the stated mechanism of injur y. I discussed this completely with the injured worker, and she was completely in agreement and understand that proceeding with the diagnostic test did not indicate a formal acceptan ce of a hip condition for this claim, and she understood that the findings may, in fact, be deemed unrelated to the specific mechanism of injury for this claim. In addition to schedu ling the MR arthrogram, and per my discussions with Dr. Steele, I am tentatively scheduling her an appointment with local orthopedic surgeon, Dr. Gonzalo Martinez in the chance that osvaldo hodges appears on the MR arthrogram and we wish to get an orthopedic opinion with regard to the nature of the pathology, and appropriate medical treatment recommendation, and possibl y, if Dr. Martinez feels comfortable formulating this opinion, an opinion regarding connec tion to the stated mechanism of injury for this condition. The injured worker was very much in favor of this and understood that findings might bring her to a MMI status with regard to the claim. She continues to work, but notes that she has been having increasing sharp pa ins in the left lower back and hip area, and notes no specific explanation for this from ac tivities, etc. She continues to take Prozac, gabapentin, p.r.n. ibuprofen and Robaxin on a more or less regular basis. O: GENERAL: No acute distress. HEENT: Mouth and oropharynx clear. NECK: Supple. CHEST: Clear lungs. CARDIAC: Regular rate and rhythm. No click, murmur r or rub. ABDOMEN: Soft, nontender. BACK: Indirect observation of movements shows no significant restrictions. EXTREMITIES: I did not detect any point tenderness over the left hip at this point in time. She had no significant discomfort with log rolling maneuver. She had some mild discomfort with extremes of flexion of the hip, and more discomfort, but less resistance, to the exami nation process of external rotation. She had good distal neurocirculatory response, and gai t appeared to be nonantalgic to me. IMAGING / DIAGNOSTICS: We are requesting approval for MR arthrogram of the hip and it is tentative scheduled for 10/16/2012. Also, a possible diagnostic orthopedic consultation sanjay eduled for 11/04/[address] Gonzalo Martinez. I will be following up with the injured work er prior to that appointment with Dr. Martinez to make a determination whether it is going to be necessary or not. PENDING INTERVENTIONS: Continued conservative measures pending these diagnostic tests. A: LUMBAR SPRAIN AND LEFT RADICULITIS AND POSSIBLE LEFT HIP PATHOLOGY, FAILURE TO SHOW IMPROVE MENT WITH INITIAL CONSERVATIVE TREATMENT AND PASSAGE OF TIME. P: The plan is noted above. Injured worker was in agreement with this. She will be schedule d to come back and see me in about a 2-week period of time, currently scheduled for 013 at 8 a.m.. E: Regular work. R: No specific restrictions other than common sense ergonomic performance of her work resp onsibilities. Impairment undetermined. She is not MMI status for the above reasons. John Muller MD / TDG JOB #: [id number] signed by Kane Muller MD at 10/09/2012 1:29 PM PDTd ocumented in this encounter Miscellaneous Notes Addendum Note - Kane Muller MD - 10/11/2012 10:42 AM PDT Addended by: MENDOZA MULLER on: 10/11/2012 10:42 Modules accepted: Orders lan of Care - [facility] - 10/07/2012 12:00 AM PDTElectronically signed by Stephon Vidal at 013 11:24 AM PDTdocumented in this encounter Plan of Treatment + + +--------+ + + | Name | Type | Priori | Associated Diagnoses | Order Schedule | | | | ty | | | + + +--------+ + + | Ambulatory referral | Outpatient | Routin | Lumbar sprain | Ordered: 10/07/2012 | | to Orthopedic | Referral | e | Sprain of left hip | | | Surgery | | | Place of occurrence, | | | | | [...]
--- OUTSIDE RECORDS SUMMARY | ~2020-04-01 | XMS | Encounter Summary ---
Demographics + + + | Address | [address] | | | [place] [address] | + + + | Home Phone | | + + + | Preferred Language | Unknown | + + + | Marital Status | | + + + | Mu-Ism Affiliation | 1013 | + + + | Race | White | + + + | Ethnic Group | Not or | + + + Author + + + | Author | [facility] | | | and [place] | + + + | Organization | [facility] | | [...] Team Providers + +------+ + | Care Professional Poker Player Name | Role | Phone | + +------+ + | Radu Prater MD | PCP | | + +------+ + Reason for Visit + + + | Reason | Comments | + + + | New Patient | right ear pain, consultation with dr. tania calvin | + + + Evaluate & Treat (Routine) +--------+ + + + + + | Status | Reason | Specialty | Diagnoses / | Referred By | Referred To | | | | | Procedures | Contact | Contact | +--------+ + + + + + | Closed | Specialty | Otolaryngolog | Diagnoses | | Michael Catalan | | | Services | y | [place]as[place], | [place] | MD [address] | | | Required | | right | , Todd Garcia MD | [address] | | | | | | [address] | [address] [place] | | | | | | [address] [place] | [place] | | | | | | [place] | [address] Phone: | | | | | | [address] | [phone] | | | | | | Phone: | Fax: | | | | | | [phone] | [phone] | | | | | | Fax: | | | | | | | [phone] | | +--------+ + + + + + Encounter Details +--------+---------+ + + + | Date | Type | Department | Care Team | Description | +--------+---------+ + + + | 10/17/ | Office | [facility] | Todd Alberts | Meniere's disease of | | 2018 | Visit | OTOLARYNGOLOGY [address] | MD Radha [address] | right ear (Primary | | | | [address] | [address] [place] | Dx); Trigeminal | | | | [place] | [address] | neuralgia of right | | | | [address] | | side of face | | | | [phone] | Michael Catalan MD | | | | | | [address] | | | | | | [address] [place] | | | | | | [id number] | | | | | | | | +--------+---------+ + + + [...] this encounter Last Filed Vital Signs + +---------+ + + | Vital Sign | Reading | Time Taken | Comments | + +---------+ + + | Blood Pressure | - | - | | + +---------+ + + | Pulse | 85 | 10/17/2017 8:33 AM | | | | | PDT | | + +---------+ + + | Temperature | - | - | | + +---------+ + + | Respiratory Rate | - | - | | + +---------+ + + | Oxygen Saturation | 98% | 10/17/2017 8:33 AM | | | | | PDT | | + +---------+ + + | Inhaled Oxygen | - | - | | | Concentration | | | | + +---------+ + + | Weight | - | - | | + +---------+ + + | Height | - | - | | + +---------+ + + | Body Mass Index | - | - | | + +---------+ + + documented in this encounter Progress Notes Michael Catalan MD - 10/17/2017 8:45 AM PDTPatient comes in with 2 problems. The first pro blem is that the right ear feels plugged up. She can't seem to equalizes and this is been g oing on for about a year. She often feels a bit off balance. She notes that if she is patricio eling very fast in a car that this makes her feel a bit nauseated. The second problem is th at she's had a lot of pain around the right ear and into the right facial area. It tends to come and go but at times is very severe. This pain is been reoccurring now for about 2 yea rs. She had a root canal and this did not improve the problem. She's not had any ear infec tions that she is aware of. She had her sinuses evaluated that is been no problem in this a lennox and she feels she breathes normal limits had no sinus infections. She comes in for eval uation. Examination: Patient is an alert 37-year-old female patient is communicating well and voice quality is good. Skin of the face nose and ears all appeared to be smooth and healthy. Ea r canals are open and clean and drums are clear. There is no middle ear fluid on either martín e. Nasal passages no obstruction no mass or lesion noted. No mass seen in the oropharynx a nd posterior pharyngeal wall is smooth. Tongue and soft palate are smooth the moves symmetr ically. Neck there was no mass or lymphadenopathy noted. Thyroid area was smooth and trach ea was midline. She moves her neck well without any pain or discomfort noted. Over the occ ipital nerve there was no pain was triggered. Impression: #1 right ear Mnire's disease. #2 right facial trigeminal neuralgia. Plan: Patient will get off of caffeine and stay in a low-salt diet. Extended time was spen t explaining the main mechanism of Mnire's disease and Y the treatment. She will follow the above diet for the next month and be re-seen again at that point to see if this is impr oving the inner ear function on the right-hand side. She'll have an audiogram at that visit . Patient will also be scheduled to see if his eye injury to evaluate the right facial pain and treat trigeminal neuralgia if they agree.Electronically signed by Michael Catalan MD at 0 10/17/2017 10:11 AM PDTdocumented in this encounter Plan of Treatment + + +--------+ + + | Name | Type | Priori | Associated Diagnoses | Order Schedule | | | | ty | | | + + +--------+ + + | amb scarlett catalan | Outpatient | Routin | [facility] renay, | Ordered: 09/07/2017 | | | Referral | e | chronic | | + + +--------+ + + documented as of this encounter Visit Diagnoses + + | Diagnosis | + + | Meniere's disease of right ear - Primary Meniere's disease, unspecified | + + | Trigeminal neuralgia of right side of face | + + documented in this encounter"
--- OUTSIDE RECORDS SUMMARY | ~2020-04-01 | XMS | Encounter Summary ---
Demographics + + + | Address | [address] | | | [place] [address] | + + + | Home Phone [...] Team Providers + +------+ + | Care Edi Analyst Name | Role | Phone | + [...] | | | | | Lumbar | Kane | [address] | | | | | sprain | MD [place] | [place], | | | | | Place of | Need updated | [place] | | | | | occurrence, | address | [address] | | | | | industrial | | Phone: | | | | | places and | | [phone] | | | | | premises | | Fax: | | | | | Procedures | | [phone] | | | | | MRI Hip Left | | | | | | | w Contrast | | | +--------+--------+ + + + + Reason for Visit + + + | Reason | Comments | + + + | Back Injury | | + + + Encounter Details +--------+---------+ + + + | Date | Type | Department | Care Team | Description | +--------+---------+ + + + | 08/19/ | Office | [facility] [place] | Kane Muller | Lumbar sprain | | 2012 | Visit | OCCUPATIONAL HEALTH | MD [address] [address] | (Primary Dx); Place | | | | [place] [address] | updated address | of occurrence, | | | [address] [place] | | industrial places | | | | [place], [place] | | and premises | | | | [address] | | | | | | [phone] | | | +--------+---------+ + + + [...] + + + | Blood Pressure | 110/70 | 08/19/2012 1:13 PM | | | | | PST | | + + + + + | Pulse | 60 | 08/19/2012 1:13 PM | | | | | PST | | + + + + + | Temperature | 36.7 C (98 F) | 08/19/2012 1:13 PM | | | | | PST | | + + + + + | Respiratory Rate | 16 | 08/19/2012 1:13 PM | | | | | PST | | + + + + + | Oxygen Saturation | - | - | | + + + + + | Inhaled Oxygen | - | - | | | Concentration | | | | + + + + + | Weight | 72.6 kg (160 lb) | 08/19/2012 1:13 PM | | | | | PST | | + + + + + | Height | - | - | | + + + + + | Body Mass Index | 25.82 | 01/20/2011 12:00 AM | | | | | PDT | | + + + + + documented in this encounter Progress Notes Kane Muller MD - 08/19/2012 7:21 PM PSTSee dictation [id number] d by Kane Muller MD at 08/19/2012 7:21 PM Kane Cheung MD - 08/20/19 13 12:00 AM PST , OFFICE VISIT BACKGROUND INFORMATION: Claim #: [id number]; Date of injury: 07/27/2011; Employer: [employer]; Guarantor: Musa Jenkins. COMPLAINT: Back and possible left hip injuries, scheduled followup and to review XOCHITL and proceed with recommended treatments. SUBJECTIVE: The injured worker is 32 years of age, who presents for a scheduled appointmen t, which was surprising to me as it has been quite some time since she has had an evaluatio n with me. Her circumstances are moderately complex and will be summarizes as follows: She was last evaluated by me on date 12/22/2011. At this point in time, my note reflects that she had been to see Dr. Peraza, programs assistant, and Dr. Peraza suggested that perhaps another physiatry evaluation from a different perspective may be helpful as it was perplexi ng what could be causing the ongoing symptomatology. Rather than order an additional simila r evaluation standpoint, I had recommended that getting an Independent Medical Examination through L and I may be useful to determine whether we are at MMI status. It appears that ex am was eventually scheduled for 03/12/2012, but for reasons that are not clear, she never r eturned to me and instead had a walk-in visit with the [facility] on 0 02/26/[address] Peterson, who recommended continued conservative care, continu ing with her regular work responsibilities, and of course to keep the appointment for the I OR examination in about a 2 week period of time from then. To the best of my knowledge, Wendy salvador never received a copy of the XOCHITL report. The injured worker states that she has continu ed to have similar discomfort as she has been experiencing all along. She was advised by e XOCHITL process to have repeat MRI of the spine and her left hip, and the MRI of her left hip showed a possible labral tear and it was recommended by the radiologist interpreting this that she may have better visualization with an MR arthrogram. That was apparently recommend ed, but the injured worker has not returned for an evaluation to have this scheduled until now. She states that she contacted the office just because a long period of time had gone b y and she had not had any evaluations and she was not sure whether she was to schedule an a ppointment, and this appointment was arranged. She states that she is still having the same level of discomfort. She has basically just been putting up with it all of this time. Pain level is noted to be a 5 on 0 to 10 scale, dull and aching, primarily in the left lower skinny mbar area and into her hip. She denies any other injurious act. 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 It should be noted that I do have the XOCHITL report to review. I have no recollection of ever having reviewed this XOCHITL report before, and exactly what has contributed to the delay in e normal process of forwarding that exam for my review is unclear, but hopefully some infor mation will be forthcoming to help explain this delay. MEDICATIONS 1. Fluoxetine. 2. Gabapentin. 3. Robaxin. 4. Ibuprofen. 5. control. ALLERGIES: SHE IS NOT ALLERGIC TO ANY MEDICATIONS. OBJECTIVE VITAL SIGNS: Unremarkable. GENERAL: Well-developed, well-nourished female in no acute distress. She is polite and marketing content coordinator perative, deemed a reliable historian. There are no elements of pain behavior or embellishm ent of symptoms detected on our evaluation. SKIN AND INTEGUMENT: Warm, dry, without rash or suspicious lesions. HEENT: Normocephalic, atraumatic. Pupils equal and reactive to light. Mouth and oropharynx unremarkable. NECK: Supple, no point tenderness or muscle spasticity. No palpable thyroid or lymphadenopa thy. CHEST: Clear lungs, normal respiratory pattern. CARDIAC: Regular rhythm, no click, murmur or rub. No evidence of peripheral circulatory co mpromise. ABDOMEN: Soft, nontender, without masses or organomegaly. BACK: Normal to inspection, no deformity. No point spinous tenderness or paraspinous muscle spasticity. She did describe some discomfort with palpation of the lumbosacral junction ar ea, also the left sacroiliac joint and bilateral sciatic notch areas. No acute tenderness w as noted and there was no other visible or palpable abnormality. Range of motion on routine movements about the exam room did not appear to be restricted. EXTREMITIES: Limb survey shows no gross discrepancy in muscle bulk or tone. No clubbing, c yanosis or edema, no evidence of synovial changes. Focused exam of the left lower extremity shows there is no tenderness over the left hip area. Log-roll performance is nontender. She has full flexion of the hip without any restriction or tenderness. On extreme lateral rota tion of the hip she complained of some mild discomfort in the left lumbar area at that extr mario. There was no direct left hip pain complaints. NEUROLOGIC: Focused exam of the lower extremities showed no sensory deficits to light touch in either a global or dermatomal distribution. Motor exam was 5/5 in all myotomes, with go od effort produced. Deep tendon reflexes were symmetric, 2/4 bilateral Achilles, 2/4 bilate ral patellae. Straight leg raise test was negative from the seated position bilaterally oth er than mild increased discomfort in the left lumbar area on the left side. Gait and cerebe llar were unremarkable. IMAGING/DIAGNOSTICS: The XOCHITL report from the exam done on March 12, 2012, with addendum reports in March 2012 on MRI of the spine and left, and addendum report dated April 192011, are reviewed. In general, the doctors believe that there is both a lumbar and lef t hip problem, for which they are recommending further evaluation and treatment. Specifical ly, Alvino Parsons MD, is recommending a hip MR arthrogram be performed and Epi ch MD, is recommending potential further injection therapy because of facet joint effus ions and diffuse arthropathy. It should be noted that the injured worker has been to [facility] and had injection therapy. It was not felt likely to be beneficial to continue with diaz t injection therapy and, as a consequence of that evaluation, I am going to proceed with a left hip MR arthrogram and, depending on the results of that, make determinations about joyce atment plan moving forward, which may include a reevaluation with physiatry to see if there is a difference of opinion with regard to perhaps reconsidering the injection therapy agai n. PENDING INTERVENTIONS: I have asked the injured worker to continue with current conservativ e treatment while we proceed with diagnostic testing. A LUMBAR SPRAIN WITH LEFT RADICULITIS AND QUESTIONABLE LEFT HIP PATHOLOGY, PERSISTENT SYMPTO MATOLOGY DESPITE PASSAGE OF TIME AND INITIAL CONSERVATIVE TREATMENT. P: I spent a considerable amount of time discussing with the injured worker the examination findings this date, the findings from the XOCHITL exam, which was performed on March 12, and advising her of the recommendations from the XOCHITL doctors, who provided a very usef ul second- opinion examination. I am going to ask the injured worker to come back in a 2-we ek period of time, anticipating that we will have completed the MR arthrogram on her left h ip and will make decisions about which direction the treatment plan will go from there, dep ending on those results. She voiced understanding and agreement. E: We will allow her to continue with regular work responsibilities. R: No specific work restrictions. She will, of course, be extremely mindful of good body m echanics and lifting techniques. Follow up with us in a 2-week period of time, as noted abov e, or p.r.n. development of problems. She voiced understanding and agreement. John Muller MD / HOLLY JOB #: [id number] signed by Kane Muller MD at 08/21/2012 11:22 AM PSTd ocumented in this encounter Miscellaneous Notes Plan of Care - [facility] - 08/19/2012 12:00 AM PST documented in this encounter Plan of Treatment + +---------+--------+ + + | Name | Type | Priori | Associated Diagnoses | Order Schedule | | | | ty | | | + +---------+--------+ + + | FL Guided Needle | Imaging | Routin | Lumbar sprain | Expected: | | Placement | | e | Place of occurrence, | 08/19/2012, Expires: | | | | | industrial places | 08/19/2013 | | | | | and premises | | + +---------+--------+ + + | MRI Hip Left w | Imaging | Routin | Lumbar sprain | Expected: | | Contrast | | e | Place of occurrence, | 08/19/2012, Expires: | | | | | industrial places | 08/19/2013 | | | | | and premises | | + +---------+--------+ + + documented as of this encounter Visit Diagnoses + + | Diagnosis | + + | Lumbar sprain - Primary Sprain of lumbar region | + + | Place of occurrence, industrial places and premises | + + documented in this encounter"
--- OUTSIDE RECORDS SUMMARY | ~2020-04-01 | XMS | Encounter Summary ---
Demographics + + + | Address | [address] | | | [place] [address] | + + + | Home Phone | | + + + | Preferred Language | Unknown | + + + | Marital Status | | + + + | Scientologist Affiliation | 1013 | + + + | Race | White | + + + | Ethnic Group | Not or | + + + Author + + + | Author | [facility] | | | and [place] | + + + | Organization | [facility] | | | [...] Team Providers + +------+ + | Care Bridge Leverman Name | Role | Phone | + +------+ + | Radu Prater MD | PCP | | + +------+ + Reason for Referral Evaluate & Treat (Routine) +--------+ + + + + + | Status | Reason | Specialty | Diagnoses / | Referred By | Referred To | | | | | Procedures | Contact | Contact | +--------+ + + + + + | Closed | Specialty | Physical | Diagnoses | [facility] | Michael Catalan | | | Services | Medicine and | Trigeminal | Michael Emmanuel MD | Cholo Rangel MD [address] | | | Required | Rehabilitatio | neuralgia | [address] | | | | [address] | | [address] | [place], | | | | | | [place], | [place] [address] | | | | | | [place] [address] | Phone: | | | | | | Phone: | [phone] | | | | | | [phone] | Fax: | | | | | | Fax: | [phone] | | | | | | [phone] | | +--------+ + + + + + Encounter Details +--------+ + + + + | Date | Type | Department | Care Team | Description | +--------+ + + + + | 10/18/ | Orders Only | [facility] [place] | Michael Catalan MD | Trigeminal neuralgia | | 2018 | | OTOLARYNGOLOGY [address] | [address] | (Primary Dx) | | | | [address] | [address] [place], [place] | | | | | [place], [place] | [address] | | | | | [address] | | | | | | [phone] | | | +--------+ + + + [...] as of this encounter Plan of Treatment + + +--------+ + + | Name | Type | Priori | Associated Diagnoses | Order Schedule | | | | ty | | | + + +--------+ + + | * [facility] [place] | Outpatient | Routin | Trigeminal | Ordered: 10/18/2017 | | Physiatry - AMB | Referral | e | neuralgia | | | Referral | | | | | + + +--------+ + + documented as of this encounter Visit Diagnoses + + | Diagnosis | + + | Trigeminal neuralgia - Primary | + + documented in this encounter"
--- OUTSIDE RECORDS SUMMARY | ~2020-04-01 | XMS | Encounter Summary ---
Demographics + + + | Address | [address] | | | [place] [address] | + + + | Home Phone | | + + + | Preferred Language | Unknown | + + + | Marital Status | | + + + | Gnosticism Affiliation | 1013 | + + + | Race | White | + + + | Ethnic Group | Not or | + + + Author + + + | Author | [facility] | | | and [place] | + + + | Organization | [facility] | | | and [place] | + + + | Address | Unknown | + + + | Phone | Unavailable | + + + Support + + + + + | Name | Relationship | Address | Phone | + + + + + | Leni Addison | ECON | NA | | | | | [place] | | + + + + + Care Team Providers + +------+ + | Care Microsoft Architect Name | Role | Phone | + +------+ + | No, Physician | PCP | Unavailable | + +------+ + Reason for Visit + +--------+ + | Reason | Onset | Comments | | | Date | | + +--------+ + | Back Pain | 10/21/ | | | | 2012 | | + +--------+ + Encounter Details +--------+ + + + + | Date | Type | Department | Care Team | Description | +--------+ + + + + | 10/21/ | Telephone | [facility] | Kane Muller | Back Pain | | 2012 | | OCCUPATIONAL HEALTH | MD [address] Need | | | | | [place] [address] | updated address | | | | [address] | | | | | | [place] | | | | | | [address] | | | | | | [phone] | | | +--------+ + + + [...] Notes Telephone Encounter - Noemí Watters - 10/21/2012 1:39 PM PDTIW would like results of Hip MRI and also wanted to let you know that she waked a couple of miles last night and she is in so much pain...[phone] documented in this encounter Plan of Treatment Not on filedocumented as of this encounter Visit Diagnoses Not on filedocumented in this encounter"
--- OUTSIDE RECORDS SUMMARY | ~2020-04-01 | XMS | Encounter Summary ---
Demographics + + + | Address | [address] | | | [place] [address] | + + + | Home Phone | | + + + | Preferred Language | Unknown | + + + | Marital Status | | + + + | Restoration Affiliation | 1013 | + + + | Race | White | + + + | Ethnic Group | Not or | + + + Author + + + | Author | [facility] | | | and [place] | + + + | Organization | [facility] | | | [...] Team Providers + +------+ + | Care Supervisor Hardboard Name | Role | Phone | + +------+ + | No, Physician | PCP | Unavailable | + +------+ + Reason for Visit + +--------+ + | Reason | Onset | Comments | | | Date | | + +--------+ + | Medication Refill | 09/27/ | | | | 2012 | | + +--------+ + Encounter Details +--------+--------+ + + + | Date | Type | Department | Care Team | Description | +--------+--------+ + + + | 09/27/ | Refill | [facility] | Kane Muller | Medication Refill | | 2012 | | [facility] [address] | MD [address] | | | | | [facility] | updated address | | | | | [facility] [place] | | | | | | [address] | | | | | | [phone] | | | +--------+--------+ + + + Social History + +-------+ [...]
--- OUTSIDE RECORDS SUMMARY | ~2020-04-01 | XMS | Encounter Summary ---
Demographics + + + | Address | [address] | | | [place] [address] | + + + | Home Phone | | + + + | Preferred Language | Unknown | + + + | Marital Status | | + + + | Episcopal Affiliation | 1013 | + + + | Race | White | + + + | Ethnic Group | Not or | + + + Author + + + | Author | [facility] | | | and [place] | + + + | Organization | [facility] | | | and [...] Team Providers + +------+ + | Care Slash Trimmer Name | Role | Phone | [...] Description | +--------+---------+ + + + | 10/22/ | Office | [facility] | Kane Muller | Lumbar sprain | | 2013 | Visit | OCCUPATIONAL HEALTH | MD Carlton Need | (Primary Dx); Place | | | | [address] | updated address | of occurrence, | | | | [address] [place] | | industrial places | | | | [place], [place] | | and premises | | | | [address] | | | | | | [phone] | | | +--------+---------+ + + + [...] + + + | Blood Pressure | 110/72 | 10/22/2012 8:07 AM | | | | | PDT | | + + + + + | Pulse | 72 | 10/22/2012 8:07 AM | | | | | PDT | | + + + + + | Temperature | 36.3 C (97.4 F) | 10/22/2012 8:07 AM | | | | | PDT | | + + + + + | Respiratory Rate | 16 | 10/22/2012 8:07 AM | | | | | PDT | | + + + + + | Oxygen Saturation | - | - | | + + + + + | Inhaled Oxygen | - | - | | | Concentration | | | | + + + + + | Weight | 73.5 kg (162 lb) | 10/22/2012 8:07 AM | | | | | PDT | | + + + + + | Height | 167.6 cm (5' 6") | 10/22/2012 8:07 AM | | | | | PDT | | + + + + + | Body Mass Index | 26.15 | 10/22/2012 8:07 AM | | | | | PDT | | + + + + + documented in this encounter Progress Notes Kane Muller MD - 10/22/2012 10:57 AM PDTSee dictation [id number] nikki d by Kane Muller MD at 10/22/2012 10:58 AM Kane Phan MD - 10/23/19 13 12:00 AM PDT OCCUPATIONAL MEDICINE [facility] [place] [address] FAX: [phone] OFFICE VISIT : 1980 Claim number: [id number] Date of injury: 07/27/2011 Employer: [employer] Guarantor: Musa Jenkins COMPLAINT: Back injury and left radiculitis, scheduled followup. S: The injured worker is 32 years of age, here to discuss her recent left hip MRI. She is doing about the same, although she notes she has had some increased pain recently, because she thought she should try doing some exercises, and started working on a walking program, and this aggravated her discomfort. Otherwise, no substantial changes in her circumstances. She has continued to work regular work. She does have an appointment with Dr. Gonzalo Rodriguez on, orthopedic surgeon, for 11/05/2012, to discuss the findings from the MRI. We did have a lengthy discussion this date about the likelihood of the findings from the MRI, being rela talha to the specific mechanism of injury, which was reported for the accepted condition on t his claim. She voiced understanding and agreement. OBJECTIVE VITAL SIGNS: Unremarkable. BACK: The exam is limited to indirect observation of movements, which do not show any antal gic gait. IMAGING / DIAGNOSTICS: MRI obtained on date 10/16/2012, had the following impression: "Fi ndings consistent with a labral tear of the left anterior superior labrum." PENDING INTERVENTIONS: Continue conservative measures. I will discuss with Dr. Martinez o ur interest in his opinion, with regards to these findings being related to the medical ci rcumstances of fact with regards to the mechanism of injury and actual development of the l eft hip symptomatology. I will schedule the injured worker to come back and see me in a 4-we ek period of time to discuss this. A: Lumbar sprain, left lower extremity discomforts, with MRI findings consistent with a le ft hip labral tear. P: As noted above, I would like the injured worker to have the consult with Dr. Martinez, and am requesting specifically that he provide with me with the opinion whether or not the findings are consistent with the mechanism of injury, and clinical findings for this patie nt from her injury and the accepted condition of lumbar sprain. I will see the injured work er back to discuss these findings, and make recommendations with regards to further diagnos tic or treatment interventions for the accepted condition on the claim. She voiced understa nding and agreement. E: Regular work. . R: No specific restrictions. Impairment undetermined. She is not deemed MMI status until second opinion and consult by Dr. Gonzalo Martinez is performed. John Muller MD / [facility] JOB #: [id number] signed by Kane Muller MD at 10/23/2012 10:23 AM PDTd ocumented in this encounter Miscellaneous Notes Plan of Care - ONPRICILA TREVIÑO WAMT - 10/22/2012 12:00 AM PDT documented in this encounter Plan of Treatment Not on filedocumented as of this encounter Visit Diagnoses + + | Diagnosis | + + | Lumbar sprain - Primary Sprain of lumbar region | + + | Place of occurrence, industrial places and premises | + + documented in this encounter
--- OUTSIDE RECORDS SUMMARY | ~2020-04-01 | XMS | Encounter Summary ---
Demographics + + + | Address | [address] | | | [place] [address] | + + + | Home Phone [...] + | Author | [facility] | | | and [place] | + + + | Organization | [facility] | | | and [...] Team Providers + +------+ + | Care Timber Sizer Name | Role | Phone | + [...] Description | +--------+---------+ + + + | 11/07/ | Office | [facility] | Davie Martinez | Trochanteric | | 2012 | Visit | ORTHOPEDIC SURGERY | MD Chao [address] | bursitis (Primary | | | | [address] [place] | Dx); Tear of left | | | | [place] | [address] | acetabular labrum | | | | [address] | | | | | | [phone] | | | +--------+---------+ + + + [...] + + | Temperature | 36.6 C (97.8 F) | 11/07/2012 11:28 AM | | | | | PDT [...] Height | 167.6 cm (5' 6") | 11/07/2012 11:28 AM | | | | | PDT | | + + + + + | Body Mass Index | - | - | | + + + + + documented in this encounter Progress Notes Davie Martinez MD - 11/07/2012 12:03 PM PDTKalen benson note [id number].Electronically nikki d by Davie Martinez MD at 11/07/2012 12:03 PM Davie Nuñez MD - 11/07/2012 12:00 AM PDT ORTHOPEDICS [address] [place] [address] [place] [address] FAX: [phone] OFFICE VISIT Gayathri returns today for her problematic left hip. She was seen previously 10/24/2012 and w as found to have chronic left hip pain that was felt to have resulted from an overuse injur y. The pain was found to be due to a combination of trochanteric bursitis as well as a left hip labral tear. We initially recommended a trochanteric bursal injection and she has now returned for this procedure. EXAMINATION: Today Gayathri's left hip reveals that she has an area of distinct tenderness ov er the central aspect of her trochanteric bursa. ADVICE: We have proceeded to inject the patient's left hip trochanteric bursa under sterile conditions and under local anesthesia with a combination of 9 mg of betamethasone, 2 mL of 1% lidocaine, and 2 mL 0.5% Marcaine, which she tolerated well. Hopefully, she will benefi t from the injection. If she still has persisting discomfort then her next step will be to contact Dr. Peraza for an intra-articular left hip joint injection. Davie Martinez MD / [facility] JOB #: [id number] cc: John Muller MD 3 :36 PM PDTdocumented in this encounter Plan of Treatment Not on filedocumented as of this encounter Visit Diagnoses + + | Diagnosis | + + | Trochanteric bursitis - Primary Enthesopathy of hip region | + + | Tear of left acetabular labrum Sprain and strain of other specified sites of hip and | | thigh | + + documented in this encounter
--- OUTSIDE RECORDS SUMMARY | ~2020-04-01 | XMS | Encounter Summary ---
Demographics + + + | Address | [address] | | | [place] [address] | + + + | Home Phone | | + + + | Preferred Language | Unknown | + + + | Marital Status | | + + + | Mormon Affiliation | 1013 | + + + | Race | White | + + + | Ethnic Group | Not or | + + + Author + + + | Author | [facility] | | | and [place] | + + + | Organization | [facility] | | [...] Team Providers + +------+ + | Care Funeral Director Name | Role | Phone | + +------+ + | No, Physician | PCP | Unavailable | + +------+ + Reason for Visit + +--------+ + | Reason | Onset | Comments | | | Date | | + +--------+ + | Medication Refill | 08/21/ | | | | 2012 | | + +--------+ + Encounter Details +--------+--------+ + + + | Date | Type | Department | Care Team | Description | +--------+--------+ + + + | 08/21/ | Refill | [facility] | Kane Muller | Medication Refill | | 2012 | | [facility] [address] | MD [address] Need | | | | | [facility] [address] | updated address | | | | | [place], [place] | | | | | | [address] | | | | | | [phone] | | | +--------+--------+ + + + [...] Notes Telephone Encounter - Soledad Navarrete - 08/21/2012 2:50 PM PSTCalled in Gabapentin and Robaxin to [facility] per .Electronically signed by Soledad Navarrete at 11/2012 2:50 PM PSTdocumented in this encounter Plan of Treatment Not on filedocumented as of this encounter Visit Diagnoses Not on filedocumented in this encounter"
--- OUTSIDE RECORDS SUMMARY | ~2020-04-01 | XMS | Encounter Summary ---
Demographics + + + | Address | [address] | | | [place] [address] | + + + | Home Phone | | + + + | Preferred Language | Unknown | + + + | Marital Status | | + + + | Taoist Affiliation | [id number] | + + + | Race | White | + + + | Ethnic Group | Not or | + + + Author + + + | Author | [facility] | | | and [place] | + + + | Organization | [facility] | | | [...] Team Providers + +------+ + | Care Counseling Specialist Name | Role | Phone | + +------+ + | Radu Prater MD | PCP | | + +------+ + Reason for Visit + + + | Reason | Comments | + + + | Abdominal Pain | | + + + Encounter Details +--------+ + + + + | Date | Type | Department | Care Team | Description | +--------+ + + + + | 08/28/ | Emergency | [facility] | Seth Patel, | Ovarian cyst, right | | 2019 | | [facility] | MD [address] | (Primary Dx); | | | | CENTER [address] | [place], [place] | Ruptured cyst of | | | | [place], [place] | [address] | ovary | | | | [address] | | | | | | [phone] | | | +--------+ + + + [...] + + + documented in this encounter Discharge Instructions AttachmentsThe following attachments cannot be sent through Care Everywhere.Cysts, Ovarian (Urdu)documented in this encounter Medications at Time of Discharge + + + +---------+ + + | Medication | Sig | Dispensed | Refills | Start | End Date | | | | | | Date | | + + + +---------+ + + | | Take 1 tablet by | 15 | 0 | 08/29/19 | | | HYDROcodone-acetamin | mouth every 6 hours | tablet | | 19 | | | ophen (NORCO) 5-325 | as needed. | | | | | | mg per tablet | | | | | | + + + +---------+ + + | ibuprofen | Take one tablet 2-3 | | 0 | 07/28/19 | | | (ADVIL,MOTRIN) 800 | times daily as | | | 12 | | | MG tablet | needed | | | | | + + + +---------+ + + | metoclopramide | Take 1 tablet by | 15 | 0 | 12/27/19 | | | (REGLAN) 10 mg | mouth every 6 hours | tablet | | 18 | | | tablet | as needed for | | | | | | | Nausea. | | | | | + + + +---------+ + + | ondansetron | Take 1 tablet by | 12 | 0 | 08/29/19 | | | (ZOFRAN ODT) 8 mg | mouth every 8 hours | tablet | | 19 | | | disintegrating | as needed for | | | | | | tablet | Nausea. | | | | | + + + +---------+ + + | rizatriptan | Take 10 mg by mouth | | 0 | | | | (MAXALT-EQUIPMENT COORDINATOR) 10 mg | as needed for | | | | | | disintegrating | Migraine. May repeat | | | | | | tablet | in 2 hours if | | | | | | | needed | | | | | + + + +---------+ + + | SUMAtriptan | Take 1 tablet by | 30 | 0 | 12/27/19 | | | (IMITREX) 25 mg | mouth as needed. | tablet | | 18 | | | tablet | | | | | | + + + +---------+ + + | topiramate | Take 100 mg by mouth | | 0 | | | | (TOPAMAX) 25 mg | Daily. | | | | | | tablet | | | | | | + + + +---------+ + + documented as of this encounter ED Notes Seth Patel MD - 08/28/2018 5:35 PM PDTFormatting of this note might be different fr om the original. [facility] Emergency Department Encounter Note [address] [place] [address] PCP:Radu Prater MD ED11 CHIEF COMPLAINT: Chief Complaint Patient presents with Abdominal Pain HPI Gayathri Palma is a 38 y.o. female who presents to the Emergency Department with righ t lower quadrant abdominal pain. This began this morning and has steadily worsened. The pa tient has cramping focal pain that is described as sharp and 10 out of 10 in severity. 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 No pertinent surgical history. CURRENT MEDICATIONS Previous Medications IBUPROFEN (ADVIL,MOTRIN) 800 MG TABLET Take one tablet 2-3 times daily as needed METOCLOPRAMIDE (REGLAN) 10 MG TABLET Take 1 tablet by mouth every 6 hours as needed for Nausea. RIZATRIPTAN (MAXALT-EQUIPMENT COORDINATOR) 10 MG DISINTEGRATING TABLET Take 10 mg by mouth as needed for Migraine. May repeat in 2 hours if needed SUMATRIPTAN (IMITREX) 25 MG TABLET Take 1 tablet by mouth as needed. TOPIRAMATE (TOPAMAX) 25 MG TABLET Take 100 mg by mouth Daily. ALLERGIES No Known Allergies FAMILY AND SOCIAL HISTORY History reviewed. No pertinent family history. Social History Social History Marital status: Spouse name: N/A Number of children: N/A Years of education: N/A Social History Main Topics Smoking status: Never Smoker Smokeless tobacco: Former User Alcohol use Yes Drug use: No Sexual activity: Not Asked Other Topics Concern None Social History Narrative None REVIEW OF SYSTEMS Review of Systems Constitutional: Negative for chills and fever. Gastrointestinal: Positive for nausea and vomiting. As in history of present illness. A 10 system review was otherwise negative. PHYSICAL EXAM VITAL SIGNS: (first vital signs):Temp: 36.6 C (97.9 F) Pulse: 83 Resp: 16 SpO2: 100 % B P: 126/75 Body mass index is 25.51 kg/m. Constitutional: female patient, pleasant, alert and appropriate, conversant with nurse and staff. HEENT: Atraumatic, patient follows me around the room with their eyes, PERRL, Oropharynx s hows no redness, moist mucus membranes. Neck: Supple with full range of motion. No JVD, lymphadenopathy, or meningismus. Respiratory: Good air movement bilaterally. No wheezes, no rales. Patient's work of [place] is normal. Cardiovascular: Normal S1 S2. No rubs or murmurs Abdomen: Focal to palpation the right lower quadrant.. No rebound, guarding, or masses. Bowel tones normal. No pulsatile masses Back: No CVA tenderness. No midline thoracic or lumbar spinal tenderness. Extremities: Nontender. No edema, no calf asymmetry. Present distal pulses. Skin: Warm, Dry, No obvious rashes. Capillary refill is brisk <3 seconds and shows good p erfusion on areas of visible skin. Neurologic: Alert & oriented. Cranial nerves II-XII intact. No focal deficits. Gait is n ormal. Speech is normal. Psychiatric: Normal mood, affect and judgement. No evidence of suicidal or homicidal idea tion at this time. LABS Results for orders placed or performed during the hospital encounter of 08/28/18 Urinalysis with Microscopic with Culture if Indicated Result Value Ref Range Color Yellow Light Yellow, Yellow, Straw Clarity Clear Clear pH, Urine 5.0 5.0 - 8.0 Specific [place] 1.025 1.001 - 1.030 Protein, Urine Negative Negative Blood, Urine Negative Negative Glucose, Urine Negative Negative Ketones, Urine 20 mg/dL (A) Negative Bilirubin, Urine Negative Negative Nitrite, Urine Negative Negative Leukocyte Esterase, Urine Negative Negative Urobilinogen, Urine Negative 0.2 mg/dL, 1.0 mg/dL, Negative WBC UA 0-2 0 - 2 /HPF RBC UA 0-2 0 - 2 /HPF SQUAMOUS EPITHELIAL UA >100 (A) 0 - 2 /LPF BACTERIA UA Negative Negative /HPF MUCUS UA Present (A) Negative /LPF URINE COMMENT Urine Culture Not Indicated CBC with Differential Result Value Ref Range WBC 11.9 (H) 4.0 - 11.0 K/uL RBC 4.51 3.70 - 5.20 M/uL Hemoglobin 14.3 11.5 - 16.0 g/dL Hematocrit 41.5 34.0 - 47.0 % MCV 92.0 83.0 - 101.0 fL MCH 31.7 28.0 - 35.0 pg MCHC 34.5 32.0 - 36.0 g/dL RDW-CV 12.7 <15.0 % RDW-SD 42.5 35.1 - 46.3 fL Platelet Count 313 140 - 440 K/uL MPV 9.8 6.5 - 12.4 fL % Neutrophils 80.9 45.0 - 82.0 % % Lymphocytes 13.2 (L) 20.0 - 45.0 % % Monocytes 4.9 4.0 - 12.0 % % Eosinophils 0.1 0.0 - 5.0 % % Basophils 0.5 0.0 - 1.0 % % Immature Granulocytes 0.4 0.0 - 0.4 % Absolute Neutrophils 9.63 (H) 1.80 - 8.50 K/uL Absolute Lymphocytes 1.57 0.60 - 3.20 K/uL Absolute Monocytes 0.58 0.00 - 1.00 K/uL Absolute Eosinophils 0.01 0.00 - 0.40 K/uL Absolute Basophils 0.06 0.00 - 0.10 K/uL Absolute Immature Granulocytes 0.05 (H) 0.00 - 0.03 K/uL % nRBC 0 0 - 2 per 100 WBC's Absolute nRBC 0.00 0.00 - 0.01 K/uL Comprehensive Metabolic Panel Result Value Ref Range Na 135 (L) 136 - 145 mmol/L K 3.4 3.4 - 5.1 mmol/L Cl 105 98 - 107 mmol/L CO2 22 20 - 31 mmol/L Anion Gap 8 3 - 16 mmol/L Glucose 89 60 - 106 mg/dL BUN 10 9 - 23 mg/dL Creatinine 0.77 0.55 - 1.02 mg/dL eGFR if not >60 >=60 mL/min/1.73m2 Ca 9.3 8.7 - 10.4 mg/dL Albumin 4.5 3.2 - 4.8 g/dL Bilirubin Total 0.5 0.3 - 1.2 mg/dL Total Protein 6.8 5.7 - 8.2 g/dL AST 15 0 - 34 U/L ALT 10 10 - 49 U/L Alkaline Phosphatase 33 (L) 46 - 116 U/L Globulin 2.3 2.1 - 3.8 g/dL Albumin/Globulin Ratio 2.0 (H) 0.8 - 1.9 BUN/Creatinine Ratio 13.0 Lipase Result Value Ref Range Lipase 41 12 - 53 U/L C-Reactive Protein Result Value Ref Range CRP <4.00 <10.00 mg/L , Urine, Qual Result Value Ref Range HCG SCREEN, URINE Negative Negative IMAGING STUDIES Recent imaging: Recent Results (from the past 360 hour(s)) CT Abdomen Pelvis w Contrast [facility] CT ABDOMEN PELVIS W CONTRAST 08/28/2018 6:30 PM HISTORY: ABDOMINAL PAIN. COMPARISON: None. PROTOCOL: Axial images of the abdomen and pelvis were obtained after administration of 85 mL Omnipaque 350. Coronal and sagittal reformations were acquired. FINDINGS: LUNG BASE: Visualized lung bases are clear. Heart is normal in size. No evidence of pleural effusion. HEPATOBILIARY: 2.6 x 2.8 x 2.7 cm mass within the posterior aspect of the right hepatic lobe near the dome of the diaphragm with peripheral nodular enhancement, compatible with a benign hepatic hemangioma. The gallbladder is normal. No evidence of intrahepatic or extrahepatic biliary ductal dilatation. PANCREASE: Normal parenchyma. No evidence of pancreatic ductal dilation. SPLEEN: Normal parenchyma. No evidence of mass or splenomegaly. ADRENAL GLANDS: No evidence of nodule, mass or suspicious thickening. KIDNEYS: Bilateral kidneys are without evidence of suspicious mass, calculus, or hydronephrosis. BLADDER: Unremarkable. REPRODUCTIVE: 3.5 cm right adnexal/ovarian cystic lesion. A peripherally thick-walled/enhancing 1.5 cm lesion is seen in the right ovary likely representing an involuting corpus luteal cyst/follicle. A small to moderate amount of free fluid is seen throughout the pelvis which is hypodense with a few areas of subtle isodensity, most compatible with recent follicular rupture. 2.5 cm cyst is noted in the left ovary. Question prior hysterectomy. VASCULATURE: Aorta is nonaneurysmal and without evidence of dissection. LYMPH NODES: No enlarged lymph nodes are visualized within the omentum or retroperitoneum. BOWEL: The stomach is normal. Imaged small bowel and colon demonstrate no acute findings. No evidence of dilatation to suggest obstruction or abnormal bowel wall thickening. No evidence of appendicitis. SOFT TISSUES: Body wall soft tissue structures demonstrate no acute abnormalities. BONES: There are no acute osseous abnormalities. IMPRESSION - 1. 1.5 cm lesion is seen in the right ovary likely representing an involuting corpus luteal cyst/follicle. A small to moderate amount of free fluid is seen throughout the pelvis which is hypodense with a few areas of subtle isodensity, most compatible with recent follicular rupture. 2. 2.6 x 2.8 x 2.7 cm mass within the posterior aspect of the right hepatic lobe near the dome of the diaphragm with peripheral nodular enhancement, compatible with a benign hepatic hemangioma. 3. Other predominantly simple-appearing cystic lesions are seen involving bilateral ovaries. Dictated and Signed by: Earl Cardenas MD Electronically signed: 08/28/2018 6:57 PM ED COURSE & MEDICAL DECISION MAKING Pertinent Labs & Imaging studies were reviewed along with EMS notes and long-term record s if applicable. Medication and Allergy lists reviewed in [facility]. Nurses note and old record s were reviewed if available within [facility] ER course 17:35 - Patient care initiated. After introducing myself to the patient, I performed a car eful history and physical examination. Patient presents with focal right lower quadrant abdominal pain. The patient will need a C T scan to determine if this is appendicitis or if this is potentially something more serious like an infectious process. We will also check labs. 19:00. Patient is doing well at this time however, there appears to be more of a ruptured cyst in the right pelvis associated with the ovary. We will check an ultrasound to be sure 20:15. Ultrasound confirms a ruptured cyst. There is no other evidence of acute pathology . Last Set of Vital Signs: Temp: 36.6 C (97.9 F) Pulse: 73 Resp: 16 SpO2: 100 % BP: 101/5 4 FINAL IMPRESSION 1. Ovarian cyst, right 2. Ruptured cyst of ovary Disposition: Discharge home Condition: Stable Follow-up Information Schedule an appointment as soon as possible for a visit with Radu Prater MD. Specialty: Family Medicine Contact information: [address] [facility] [address] New Prescriptions HYDROCODONE-ACETAMINOPHEN (NORCO) 5-325 MG PER TABLET Take 1 tablet by mouth every 6 ho urs as needed. Discontinued Medications No medications on file Discharge References/Attachments Cysts, Ovarian (Urdu) Administrations This Visit HYDROmorphone (DILAUDID) injection 1 mg Admin Date 08/28/2018 Action Given Dose 1 mg Route Intravenous Administered By Nursat Lovelace RN iohexol (OMNIPAQUE 350) 350 mg/mL injection 85 mL Admin Date 08/28/2018 Action Given Dose 85 mL Route Intravenous Administered By Flavia Hutchisonologist ondansetron (ZOFRAN) injection 8 mg Admin Date 08/28/2018 Action Given Dose 8 mg Route Intravenous Administered By Nusrat Lovelace RN Portions of this chart may have been created with [employer] voice recognition software. Occasi onal wrong-word or sound-alike substitutions may have occurred due to the inherent wu itations of voice recognition software. Please read the chart carefully and recognize, using context, where these substitutions have occurred. Seth Patel MD 08/28/18 2020 Kacie Strickland RN - 08/28/2018 4:54 PM PDTRLQ abd pain since this AM, no fevers, pt is nauseated, no vomiting , no diarrhea, pt states that she has been getting chills, pt was at walk in [facility] and kali ahumada did lab work and an US and then sent her to the ED for further workupElectronically sign ed by Kacie Quiles RN at 08/28/2018 4:55 PM PDTdocumented in this encounter Plan of Treatment Not on filedocumented as of this encounter Procedures + +--------+ + + + | Procedure Name | Priori | Date/Time | Associated Diagnosis | Comments | | | ty | | | | + +--------+ + + + | US PELVIS W | STAT | 08/28/2018 | | Results for this | | TRANSVAGINAL | | 8:04 PM | | procedure are in the | | | | PDT | | results section. | + +--------+ + + + | CT ABDOMEN PELVIS W | STAT | 08/28/2018 | | Results for this | | CONTRAST | | 6:30 PM | | procedure are in the | | | | PDT | | results section. | + +--------+ + + + | CBC WITH | STAT | 08/28/2018 | | Results for this | | DIFFERENTIAL | | 5:59 PM | | procedure are in the | | | | PDT | | results section. | + +--------+ + + + | C-REACTIVE PROTEIN | Routin | 08/28/2018 | | Results for this | | | e | 5:59 PM | | procedure are in the | | | | PDT | | results section. | + +--------+ + + + | LIPASE | STAT | 08/28/2018 | | Results for this | | | | 5:59 PM | | procedure are in the | | | | PDT | | results section. | + +--------+ + + + | COMPREHENSIVE | STAT | 08/28/2018 | | Results for this | | METABOLIC PANEL | | 5:59 PM | | procedure are in the | | | | PDT | | results section. | + +--------+ + + + | URINALYSIS WITH | Routin | 08/28/2018 | | Results for this | | MICROSCOPIC WITH | e | 5:05 PM | | procedure are in the | | CULTURE IF INDICATED | | PDT | | results section. | + +--------+ + + + | HCG, URINE, QUAL | Add-On | 08/28/2018 | | Results for this | | | | 5:05 PM | | procedure are in the | | | | PDT | | results section. | + +--------+ + + + documented in this encounter Results US Pelvis W Transvaginal (08/28/2018 8:04 PM PDT) + + | Specimen | + + | | + + + + + | Narrative | Performed At | + + + | US PELVIS W TRANSVAGINAL 08/28/2018 7:30 PM HISTORY: ABDOMINAL | [facility] | | PAIN. COMPARISON: None. PROTOCOL: Lang scale and Doppler | | | images of the pelvis with transabdominal and transvaginal imaging. | | | FINDINGS: Uterus: Uterus is surgically absent. Right ovary: | | | Enlargement of the right ovary measuring 5.6 x 3.8 x 4.2 cm. Large | | | dominant 3.2 x 2.2 cm debris-filled cystic lesion within the right | | | ovary likely representing a hemorrhagic cyst. Small follicles are | | | seen. Free fluid is seen in the right adnexa. Left ovary: | | | Question a 2.2 cm hypoechoic cyst in the left ovary. The size of the | | | ovary is 3.6 x 3.1 x 3.5 cm. There is normal Doppler flow. | | | IMPRESSION - Enlargement of the right ovary and presence of a 3.2 cm | | | debris-filled lesion likely representing a hemorrhagic cyst. Right | | | adnexal slightly complex fluid likely represents recent follicular | | | rupture. Suggestion of a dominant 2.4 similar follicle/cyst in the | | | left ovary. Dictated and Signed by: Earl Cardenas MD | | | Electronically signed: 08/29/2018 12:23 AM | | + + + + + | Procedure Note | + + | Kei, Rad Results In - 08/29/2018 12:26 AM PDT US PELVIS W TRANSVAGINAL 08/28/2018 7:30 | | PM HISTORY: ABDOMINAL PAIN.COMPARISON: None.PROTOCOL: Lang scale and Doppler images of | | the pelvis with transabdominal andtransvaginal imaging.FINDINGS:Uterus: Uterus is | | surgically absent.Right ovary: Enlargement of the right ovary measuring 5.6 x 3.8 x 4.2 | | cm. Largedominant 3.2 x 2.2 cm debris-filled cystic lesion within the right ovary | | likelyrepresenting a hemorrhagic cyst. Small follicles are seen. Free fluid is seen | | inthe right adnexa.Left ovary: Question a 2.2 cm hypoechoic cyst in the left ovary. The | | size of theovary is 3.6 x 3.1 x 3.5 cm. There is normal Doppler flow.IMPRESSION | | -Enlargement of the right ovary and presence of a 3.2 cm debris-filled lesionlikely | | representing a hemorrhagic cyst. Right adnexal slightly complex fluidlikely represents | | recent follicular rupture.Suggestion of a dominant 2.4 similar follicle/cyst in the left | | ovary.Dictated and Signed by: Earl Cardenas MD Electronically signed: 08/29/2018 12:23 | | AM | |dominant 3.2 x 2.2 cm debris-filled cystic lesion within the right ovary likely | |representing a hemorrhagic cyst. Small follicles are seen. Free fluid is seen in | |the right adnexa. | | | |Left ovary: Question a 2.2 cm hypoechoic cyst in the left ovary. The size of the | |ovary is 3.6 x 3.1 x 3.5 cm. There is normal Doppler flow. | | | | | |IMPRESSION - | |Enlargement of the right ovary and presence of a 3.2 cm debris-filled lesion | |likely representing a hemorrhagic cyst. Right adnexal slightly complex fluid | |likely represents recent follicular rupture. | | | |Suggestion of a dominant 2.4 similar follicle/cyst in the left ovary. | | | |Dictated and Signed by: Earl Cardenas MD | | Electronically signed: 08/29/2018 12:23 AM | + + + +---------+ + + | Performing | Address | City/State/Zipcode | Phone Number | | Organization | | | | + +---------+ + + | [facility] | | | | + +---------+ + + CT Abdomen Pelvis w Contrast (08/28/2018 6:30 PM PDT) + + | Specimen | + + | | + + + + + | Narrative | Performed At | + + + | CT ABDOMEN PELVIS W CONTRAST 08/28/2018 6:30 PM HISTORY: | [facility] | | ABDOMINAL PAIN. COMPARISON: None. PROTOCOL: Axial images of | | | the abdomen and pelvis were obtained after administration of 85 mL | | | Omnipaque 350. Coronal and sagittal reformations were acquired. | | | FINDINGS: LUNG BASE: Visualized lung bases are clear. Heart is | | | normal in size. No evidence of pleural effusion. HEPATOBILIARY: 2.6 | | | x 2.8 x 2.7 cm mass within the posterior aspect of the right hepatic | | | lobe near the dome of the diaphragm with peripheral nodular | | | enhancement, compatible with a benign hepatic hemangioma. The | | | gallbladder is normal. No evidence of intrahepatic or extrahepatic | | | biliary ductal dilatation. PANCREASE: Normal parenchyma. No evidence | | | of pancreatic ductal dilation. SPLEEN: Normal parenchyma. No evidence | | | of mass or splenomegaly. ADRENAL GLANDS: No evidence of nodule, mass | | | or suspicious thickening. KIDNEYS: Bilateral kidneys are without | | | evidence of suspicious mass, calculus, or hydronephrosis. BLADDER: | | | Unremarkable. REPRODUCTIVE: 3.5 cm right adnexal/ovarian cystic | | | lesion. A peripherally thick-walled/enhancing 1.5 cm lesion is seen | | | in the right ovary likely representing an involuting corpus luteal | | | cyst/follicle. A small to moderate amount of free fluid is seen | | | throughout the pelvis which is hypodense with a few areas of subtle | | | isodensity, most compatible with recent follicular rupture. 2.5 cm | | | cyst is noted in the left ovary. Question prior hysterectomy. | | | VASCULATURE: Aorta is nonaneurysmal and without evidence of | | | dissection. LYMPH NODES: No enlarged lymph nodes are visualized | | | within the omentum or retroperitoneum. BOWEL: The stomach is | | | normal. Imaged small bowel and colon demonstrate no acute findings. | | | No evidence of dilatation to suggest obstruction or abnormal bowel | | | wall thickening. No evidence of appendicitis. SOFT TISSUES: Body wall | | | soft tissue structures demonstrate no acute abnormalities. BONES: | | | There are no acute osseous abnormalities. IMPRESSION - 1. 1.5 cm | | | lesion is seen in the right ovary likely representing an involuting | | | corpus luteal cyst/follicle. A small to moderate amount of free fluid | | | is seen throughout the pelvis which is hypodense with a few areas of | | | subtle isodensity, most compatible with recent follicular rupture. | | | 2. 2.6 x 2.8 x 2.7 cm mass within the posterior aspect of the right | | | hepatic lobe near the dome of the diaphragm with peripheral nodular | | | enhancement, compatible with a benign hepatic hemangioma. 3. Other | | | predominantly simple-appearing cystic lesions are seen involving | | | bilateral ovaries. Dictated and Signed by: Earl | | | MD Ronald Electronically signed: 08/28/2018 6:57 PM | | + + + + + | Procedure Note | + + | Kie, Rad Results In - 08/28/2018 7:[address] ABDOMEN PELVIS W CONTRAST 08/28/2018 | | 6:30 PMHISTORY: ABDOMINAL PAIN.COMPARISON: None.PROTOCOL: Axial images of the abdomen | | and pelvis were obtained afteradministration of 85 mL Omnipaque 350. Coronal and | | sagittal reformations wereacquired.FINDINGS:LUNG BASE: Visualized lung bases are clear. | | Heart is normal in size. No evidenceof pleural effusion. HEPATOBILIARY: 2.6 x 2.8 x 2.7 | | cm mass within the posterior aspect of the righthepatic lobe near the dome of the | | diaphragm with peripheral nodular enhancement,compatible with a benign hepatic | | hemangioma. The gallbladder is normal. Noevidence of intrahepatic or extrahepatic | | biliary ductal dilatation.PANCREASE: Normal parenchyma. No evidence of pancreatic ductal | | dilation.SPLEEN: Normal parenchyma. No evidence of mass or splenomegaly.ADRENAL GLANDS: | | No evidence of nodule, mass or suspicious thickening.KIDNEYS: Bilateral kidneys are | | without evidence of suspicious mass, calculus, orhydronephrosis.BLADDER: | | Unremarkable.REPRODUCTIVE: 3.5 cm right adnexal/ovarian cystic lesion. A | | peripherallythick-walled/enhancing 1.5 cm lesion is seen in the right ovary | | likelyrepresenting an involuting corpus luteal cyst/follicle. A small to moderateamount | | of free fluid is seen throughout the pelvis which is hypodense with a fewareas of subtle | | isodensity, most compatible with recent follicular rupture. 2.5cm cyst is noted in the | | left ovary. Question prior hysterectomy.VASCULATURE: Aorta is nonaneurysmal and without | | evidence of dissection. LYMPH NODES: No enlarged lymph nodes are visualized within the | | omentum orretroperitoneum. BOWEL: The stomach is normal. Imaged small bowel and colon | | demonstrate no acutefindings. No evidence of dilatation to suggest obstruction or | | abnormal bowelwall thickening. No evidence of appendicitis.SOFT TISSUES: Body wall soft | | tissue structures demonstrate no acuteabnormalities. BONES: There are no acute osseous | | abnormalities.IMPRESSION -1. 1.5 cm lesion is seen in the right ovary likely | | representing an involutingcorpus luteal cyst/follicle. A small to moderate amount of | | free fluid is seenthroughout the pelvis which is hypodense with a few areas of subtle | | isodensity,most compatible with recent follicular rupture. 2. 2.6 x 2.8 x 2.7 cm mass | | within the posterior aspect of the right hepatic lobenear the dome of the diaphragm with | | peripheral nodular enhancement, compatiblewith a benign hepatic hemangioma. 3. Other | | predominantly simple-appearing cystic lesions are seen involvingbilateral | | ovaries.Dictated and Signed by: Earl Cardenas MD Electronically signed: 08/28/2018 6:57 | | PM | |retroperitoneum. | |BOWEL: The stomach is normal. Imaged small bowel and colon demonstrate no acute | |findings. No evidence of dilatation to suggest obstruction or abnormal bowel | |wall thickening. No evidence of appendicitis. | |SOFT TISSUES: Body wall soft tissue structures demonstrate no acute | |abnormalities. | |BONES: There are no acute osseous abnormalities. | | | |IMPRESSION - | |1. 1.5 cm lesion is seen in the right ovary likely representing an involuting | |corpus luteal cyst/follicle. A small to moderate amount of free fluid is seen | |throughout the pelvis which is hypodense with a few areas of subtle isodensity, | |most compatible with recent follicular rupture. | |2. 2.6 x 2.8 x 2.7 cm mass within the posterior aspect of the right hepatic lobe | |near the dome of the diaphragm with peripheral nodular enhancement, compatible | |with a benign hepatic hemangioma. | |3. Other predominantly simple-appearing cystic lesions are seen involving | |bilateral ovaries. | | | | | | | | | | | | | |Dictated and Signed by: Earl Cardenas MD | | Electronically signed: 08/28/2018 6:57 PM | + + + +---------+ + + | Performing | Address | City/State/Zipcode | Phone Number | | Organization | | | | + +---------+ + + | [facility] | | | | + +---------+ + + C-Reactive Protein (08/28/2018 5:59 PM PDT) + +-------+ + + + | Component | Value | Ref Range | Performed | Pathologist | | | | | At | Signature | + +-------+ + + + | CRP | <4.00 | <10.00 mg/L | [facility] | | | | | | [facility] | | | [facility] | [facility] | | | | | [facility] - | | | | | | [facility]ATORY | | + +-------+ + + + + + | Specimen | + + | Blood | + + + + + + + | Performing | Address | City/State/Zipcode | Phone Number | | Organization | | | | + + + + + | [facility] | [address] | [place] | [phone] | | [facility] | | [address] | | | - LABORATORY | | | | + + + + + Lipase (08/28/2018 5:59 PM PDT) + +-------+ + + + | Component | Value | Ref Range | Performed | Pathologist | | | | | At | Signature | + +-------+ + + + | Lipase | 41 | 12 - 53 U/L | [facility] | [facility] | | | [facility] | [facility] | | | | | [facility] - | | | | | | LABORATORY | | + +-------+ + + + + + | Specimen | + + | Blood | + + + + + + + | Performing | Address | City/State/Zipcode | Phone Number | | Organization | | | | + + + + + | [facility] | [address] | [place], [place] | [phone] | | [facility] | | [address] | | | - LABORATORY | | | | + + + + + Comprehensive Metabolic Panel (08/28/2018 5:59 PM PDT) + +---------+ + + + | Component | Value | Ref Range | Performed | Pathologist | | | | | At | Signature | + +---------+ + + + | Na | 135 (L) | 136 - 145 | [facility] | | | | | mmol/L | [facility] | | | | | | [facility] | | | | | | C[facility] - | | | | | | LABORATORY | | + +---------+ + + + | K | 3.4 | 3.4 - 5.1 | [facility] | | | | | mmol/L | [facility] | | | | | | [facility] | | | | | | [facility] - | | | | | | LABORATORY | | + +---------+ + + + | Cl | 105 | 98 - 107 mmol/L | [facility] | | | | | | [facility] | | | | | | [facility] | | | | | | [facility] - | | | | | | LABORATORY | | + +---------+ + + + | CO2 | 22 | 20 - 31 mmol/L | [facility] | | | | | | [facility] | | | | | | [facility] | | | | | | [facility] - | | | | | | LABORATORY | | + +---------+ + + + | Anion Gap | 8 | 3 - 16 mmol/L | [facility] | | | | | | [facility] | | | | | | [facility] | | | | | | [facility] - | | | | | | LABORATORY | | + +---------+ + + + | Glucose | 89 | 60 - 106 mg/dL | [facility] | | | | | | [facility] | | | | | | [facility] | | | | | | [facility] - | | | | | | LABORATORY | | + +---------+ + + + | BUN | 10 | 9 - 23 mg/dL | [facility] | | | | | | [facility] | | | | | | [facility] | | | | | | [facility] - | | | | | | LABORATORY | | + +---------+ + + + | Creatinine | 0.77 | 0.55 - 1.02 | [facility] | | | | | mg/dL | [facility] | | | | | [facility] | | | | | | [facility] - | | | | | | LABORATORY | | + +---------+ + + + | eGFR, | >60 | >=60 | [facility] | | | non- | | mL/min/1.73m2 | [facility] | | | [place] | | | [facility] | | | | | | C[facility] - | | | | | | LABORATORY | | + +---------+ + + + | Calcium | 9.3 | 8.7 - 10.4 | [facility] | | | | | mg/dL | [facility] | | | | | | [facility] | | | | | | [facility] - | | | | | | LABORATORY | | + +---------+ + + + | Albumin | 4.5 | 3.2 - 4.8 g/dL | [facility] | | | | | | [facility] | | | | | | [facility] | | | | | | [facility] - | | | | | | LABORATORY | | + +---------+ + + + | Bilirubin | 0.5 | 0.3 - 1.2 mg/dL | [facility] | | | Total | | | [facility] | | | | | | [facility] | | | | | | [facility] - | | | | | | LABORATORY | | + +---------+ + + + | Total | 6.8 | 5.7 - 8.2 g/dL | [facility] | | | Protein | | | [facility] | | | | | | [facility] | | | | | | [facility]ENTER - | | | | | | LABORATORY | | + +---------+ + + + | AST | 15 | 0 - 34 U/L | [facility] | | | | | | [facility] | | | | | | [facility] | | | | | | [facility] - | | | | | | LABORATORY | | + +---------+ + + + | ALT | 10 | 10 - 49 U/L | [facility] | | | | | | [facility] | | | | | | [facility] | | | | | | [facility] - | | | | | | LABORATORY | | + +---------+ + + + | Alkaline | 33 (L) | 46 - 116 U/L | [facility] | | | Phosphatase | | | [facility] | | | | | | [facility] | | | | | | CENTER - | | | | | | LABORATORY | | + +---------+ + + + | Globulin | 2.3 | 2.1 - 3.8 g/dL | [facility] | | | | | | [facility] | | | | | | [facility] | | | | | | [facility] - | | | | | | LABORATORY | | + +---------+ + + + | Albumin/Jael | 2.0 (H) | 0.8 - 1.9 | [facility] | | | bulin Ratio | | | [facility] | | | | | | [facility] | | | | | | CENTER - | | | | | | LABORATORY | | + +---------+ + + + | BUN/Creatin | 13.0 | | [facility] | | | ine Ratio | | | [facility] | | | | | | [facility] | | | | | | CENTER - | | | | | | LABORATORY | | + +---------+ + + + + + | Specimen | + + | Blood | + + + + + + + | Performing | Address | City/State/Zipcode | Phone Number | | Organization | | | | + + + + + | [facility] | [address] | [place] | [phone] | | [facility] | | [address] | | | - LABORATORY | | | | + + + + + CBC with Differential (08/28/2018 5:59 PM PDT) + + + + + + | Component | Value | Ref Range | Performed | Pathologist | | | | | At | Signature | + + + + + + | White Blood | 11.9 (H) | 4.0 - 11.0 K/uL | [facility] | | | Cells | | | [facility] | | | | | | [facility] | | | | | | [facility] - | | | | | | LABORATORY | | + + + + + + | Red Blood | 4.51 | 3.70 - 5.20 | [facility] | | | Cells | | M/uL | [facility] | | | | | | [facility] | | | | | | [facility] - | | | | | | LABORATORY | | + + + + + + | Hemoglobin | 14.3 | 11.5 - 16.0 | [facility] | | | | | g/dL | [facility] | | | | | | [facility] | | | | | | CENTER - | | | | | | LABORATORY | | + + + + + + | Hematocrit | 41.5 | 34.0 - 47.0 % | [facility] | | | | | | [facility] | | | | | | [facility] | | | | | | [facility] - | | | | | | LABORATORY | | + + + + + + | MCV | 92.0 | 83.0 - 101.0 fL | [facility] | | | | | | [facility] | | | | | | [facility] | | | | | | [facility] - | | | | | | LABORATORY | | + + + + + + | MCH | 31.7 | 28.0 - 35.0 pg | [facility] | | | | | | [facility] | | | | | | [facility] | | | | | | [facility] - | | | | | | LABORATORY | | + + + + + + | MCHC | 34.5 | 32.0 - 36.0 | [facility] | | | | | g/dL | [facility] | | | | | | [facility] | | | | | | CENTER - | | | | | | LABORATORY | | + + + + + + | RDW-CV | 12.7 | <15.0 % | [facility] | | | | | | [facility] | | [facility] | | [facility] | | | | | | [facility] - | | | | | | LABORATORY | | + + + + + + | RDW-SD | 42.5 | 35.1 - 46.3 fL | [facility] | | | | | | [facility] | | | | | | [facility] | | | | | | [facility] - | | | | | | LABORATORY | | + + + + + + | Platelet | 313 | 140 - 440 K/uL | [facility] | | | Count | | | [facility] | | | | | | [facility] | | | | | | [facility] - | | | | | | LABORATORY | | + + + + + + | MPV | 9.8 | 6.5 - 12.4 fL | [facility] | | | | | | [facility] | | | | | | [facility] | | | | | | [facility] - | | | | | | LABORATORY | | + + + + + + | % | 80.9 | 45.0 - 82.0 % | [facility] | | | Neutrophils | | | [facility] | | | | | | [facility] | | | | | | CENTER - | | | | | | LABORATORY | | + + + + + + | % | 13.2 (L) | 20.0 - 45.0 % | [facility] | | | Lymphocytes | | | [facility] | | | | | | [facility] | | | | | | CENTER - | | | | | | LABORATORY | | + + + + + + | % Monocytes | 4.9 | 4.0 - 12.0 % | [facility] | | | | | | [facility] | | | | | | [facility] | | | | | | CENTER - | | | | | | LABORATORY | | + + + + + + | % | 0.1 | 0.0 - 5.0 % | [facility] | | | Eosinophils | | | [facility] | | | | | | [facility] | | | | | | CENTER - | | | | | | LABORATORY | | + + + + + + | % Basophils | 0.5 | 0.0 - 1.0 % | [facility] | | | | | | [facility] | | | | | | [facility] | | | | | | CENTER - | | | | | | LABORATORY | | + + + + + + | % Immature | 0.4Comment: For | 0.0 - 0.4 % | [facility] | | | Granulocyte | patients, use the | | [facility] | | | s | special reference ranges | | MEDICAL | | | | listed below. | | CENTER - | | | | | | LABORATORY | | + + + + + + | Absolute | 9.63 (H) | 1.80 - 8.50 | [facility] | | | Neutrophils | | K/uL | [facility] | | | | | | [facility] | | | | | | CENTER - | | | | | | LABORATORY | | + + + + + + | Absolute | 1.57 | 0.60 - 3.20 | [facility] | | | Lymphocytes | | K/uL | [facility] | | | | | | [facility] | | | | | | CENTER - | | | | | | LABORATORY | | + + + + + + | Absolute | 0.58 | 0.00 - 1.00 | [facility] | | | Monocytes | | K/uL | [facility] | | | | | | [facility] | | | | | | CENTER - | | | | | | LABORATORY | | + + + + + + | Absolute | 0.01 | 0.00 - 0.40 | [facility] | | | Eosinophils | | K/uL | [facility] | | | | | | [facility] | | | | | | CENTER - | | | | | | LABORATORY | | + + + + + + | Absolute | 0.06 | 0.00 - 0.10 | [facility] | | | Basophils | | K/uL | [facility] | | | | | | [facility]ICAL | | | | | | CENTER - | | | | | | LABORATORY | | + + + + + + | Absolute | 0.05 (H)Comment: For | 0.00 - 0.03 | [facility] | | | Immature | patients, use | K/uL | [facility] | | | Granulocyte | the special reference | | MEDICAL | | | s | ranges listed below. | | CENTER - | | | | | | LABORATORY | | + + + + + + | % nRBC | 0 | 0 - 2 per 100 | [facility] | | | | | WBC's | [facility] | | | | | | [facility]ICAL | | | | | | CENTER - | | | | | | LABORATORY | | + + + + + + | Absolute | 0.00 | 0.00 - 0.01 | [facility] | | | nRBC | | K/uL | [facility] | | | | | | [facility]ICAL | | | | | | CENTER - | | | | | | LABORATORY | | + + + + + + + + | Specimen | + + | Blood | + + + + + | Narrative | Performed At | + + + | IMMATURE GRANULOCYTES - For patients, use the following | [facility] | | reference ranges: Trim. Absolute (K/uL) Percentage (%) | [facility] | | 1st 0.003-0.091 K/uL 0.0-0.9% 2nd 0.007-0.247 K/uL | [facility] | | 0.1-2.0% 3rd 0.018-0.456 K/uL 0.1-2.0% | - LABORATORY | + + + + + + + + | Performing | Address | City/State/Zipcode | Phone Number | | Organization | | | | + + + + + | [facility] | [address] | [place] | [phone] | | [facility] | | [address] | | | - LABORATORY | | | | + + + + + , Urine, Qual (08/28/2018 5:05 PM PDT) + + + + + + | Component | Value | Ref Range | Performed | Pathologist | | | | | At | Signature | + + + + + + | HCG | Negative | Negative | [facility] | | | Qualitative | | | [facility] | | | , Urine | | | MEDICAL | | | | | | CENTER - | | | | | | LABORATORY | | + + + + + + + + | Specimen | + + | Urine | + + + + + + + | Performing | Address | City/State/Zipcode | Phone Number | | Organization | | | | + + + + + | [facility] | [address] | [place] | [phone] | | [facility] | | [address] | | | - LABORATORY | | | | + + + + + Urinalysis with Microscopic with Culture if Indicated (08/28/2018 5:05 PM PDT) + + + + + + | Component | Value | Ref Range | Performed | Pathologist | | | | | At | Signature | + + + + + + | Color, | Yellow | Light Yellow, | [facility] | | | Urine | | Yellow, Straw | [facility] | | | | | | MEDICAL | | | | | | CENTER - | | | | | | LABORATORY | | + + + + + + | Clarity, | Clear | Clear | [facility] | | | Urine | | | [facility] | | | | | | MEDICAL | | | | | | CENTER - | | | | | | LABORATORY | | + + + + + + | pH, Urine | 5.0 | 5.0 - 8.0 | [facility] | | | | | | [facility] | | | | | | MEDICAL | | | | | | CENTER - | | | | | | LABORATORY | | + + + + + + | Specific | 1.025 | 1.001 - 1.030 | [facility] | | | [place], | | | [facility] | | | Urine | | | MEDICAL | | | | | | CENTER - | | | | | | LABORATORY | | + + + + + + | Protein, | Negative | Negative | [facility] | | | Urine | | | [facility] | | | | | | MEDICAL | | | | | | CENTER - | | | | | | LABORATORY | | + + + + + + | Blood, | Negative | Negative | [facility] | | | Urine | | | [facility] | | | | | | MEDICAL | | | | | | CENTER - | | | | | | LABORATORY | | + + + + + + | Glucose, | Negative | Negative | [facility] | | | Urine | | | [facility] | | | | | | MEDICAL | | | | | | CENTER - | | | | | | LABORATORY | | + + + + + + | Ketones, | 20 mg/dL (A) | Negative | [facility] | | | Urine | | | [facility] | | | | | | MEDICAL | | | | | | CENTER - | | | | | | LABORATORY | | + + + + + + | Bilirubin, | Negative | Negative | [facility] | | | Urine | | | [facility] | | | | | | MEDICAL | | | | | | CENTER - | | | | | | LABORATORY | | + + + + + + | Nitrite, | Negative | Negative | [facility] | | | Urine | | | [facility] | | | | | | MEDICAL | | | | | | CENTER - | | | | | | LABORATORY | | + + + + + + | Leukocyte | Negative | Negative | [facility] | | | Esterase, | | | [facility] | | | Urine | | | MEDICAL | | | | | | CENTER - | | | | | | LABORATORY | | + + + + + + | Urobilinoge | Negative | 0.2 mg/dL, 1.0 | [facility] | | | n, Urine | | mg/dL, Negative | [facility] | | | | | | MEDICAL | | | | | | CENTER - | | | | | | LABORATORY | | + + + + + + | White Blood | 0-2 | 0 - 2 /HPF | [facility] | | | Cells, | | | [facility] | | | Urine | | | MEDICAL | | | | | | CENTER - | | | | | | LABORATORY | | + + + + + + | Red Blood | 0-2 | 0 - 2 /HPF | [facility] | | | Cells, | | | [facility] | | | Urine | | | MEDICAL | | | | | | CENTER - | | | | | | LABORATORY | | + + + + + + | Squamous | >100 (A) | 0 - 2 /LPF | [facility] | | | Epithelial | | | [facility] | | | Cells, | | | MEDICAL | | | Urine | | | CENTER - | | | | | | LABORATORY | | + + + + + + | Bacteria, | Negative | Negative /HPF | [facility] | | | Urine | | | [facility] | | | | | | MEDICAL | | | | | | CENTER - | | | | | | LABORATORY | | + + + + + + | Mucus, | Present (A) | Negative /LPF | [facility] | | | Urine | | | [facility] | | | | | | MEDICAL | | | | | | CENTER - | | | | | | LABORATORY | | + + + + + + | Urine | Urine Culture Not | | [facility] | | | Comment | Indicated | | [facility] | | | | | | MEDICAL | | | | | | CENTER - | | | | | | LABORATORY | | + + + + + + + + | Specimen | + + | Urine - Urine | | specimen obtained by | | clean catch | | procedure (specimen) | + + + + + + + | Performing | Address | City/State/Zipcode | Phone Number | | Organization | | | | + + + + + | [facility] | [address] | [place] | [phone] | | [facility] | | [address] | | | - LABORATORY | | | | + + + + + documented in this encounter Visit Diagnoses + + | Diagnosis | + + | Ovarian cyst, right - Primary Other and unspecified ovarian cyst | + + | Ruptured cyst of ovary Other and unspecified ovarian cyst | + + documented in this encounter Administered Medications + +--------+ + +------+------+ | Medication Order | MAR | Action | Dose | Rate | Site | | | Action | Date | | | | + +--------+ + +------+------+ | HYDROcodone-acetaminophen | Given | 08/29/19 | 1 tablet | | | | (NORCO) 5-325 mg per tablet 1 | | 19 8:49 | | | | | tablet 1 tablet, Oral, ONCE, Wed | | PM PDT | | | | | 08/28/18 at 2040, For 1 dose | | | | | | + +--------+ + +------+------+ +---+---+ | | | +---+---+ + +-------+ +------+---+---+ | HYDROmorphone (DILAUDID) | Given | 08/29/19 | 1 mg | | | | injection 1 mg 1 mg, | | 19 5:59 | | | | | Intravenous, ONCE, Sun08/28/18 at | | PM PDT | | | | | 1750, For 1 dose | | | | | | + +-------+ +------+---+---+ +---+---+ | | | +---+---+ + +-------+ +--------+---+---+ | iohexol (OMNIPAQUE 350) 350 | Given | 08/29/19 | 85 mLs | | | | mg/mL injection 85 mL 85 mL, | | 19 6:30 | | | | | Intravenous, ONCE PRN, Other, | | PM PDT | | | | | Starting Sun08/28/18 at 1830, For | | | | | | | 1 dose, Cat Scanner | | | | | | + +-------+ +--------+---+---+ +---+---+ | | | +---+---+ + +-------+ +------+---+---+ | ondansetron (ZOFRAN) injection | Given | 08/29/19 | 8 mg | | | | 8 mg 8 mg, Intravenous, ONCE, | | 19 5:59 | | | | | 08/28/18 at 1750, For 1 dose | | PM PDT | | | | + +-------+ +------+---+---+ +---+---+ | | | +---+---+ + +-------+ +-------+---+---+ | promethazine (PHENERGAN) (IV | Given | 08/29/19 | 25 mg | | | | ONLY) injection 25 mg 25 mg, | | 19 8:32 | | | | | Intravenous, ONCE, 08/28/18 at | | PM PDT | | | | | 2020, For 1 dose, Vesicant. When | | | | | | | ordered IV push: Dilute to | | | | | | | 10-20mL with NS. Give over 2-3 | | | | | | | minutes into large vein. Do not | | | | | | | give in hand/wrist or foot/ankle | | | | | | | vein. Max dose 12.5mg if giving | | | | | | | peripherally., | | | | | | + +-------+ +-------+---+---+ +---+---+ | | | +---+---+ documented in this encounter
--- OUTSIDE RECORDS SUMMARY | ~2020-04-01 | XMS | Encounter Summary ---
Demographics + + + | Address | [address] | | | [place] [address] | + + + | Home Phone | | + + + | Preferred Language | Unknown | + + + | Marital Status | | + + + | [employer] Affiliation | 1013 | + + + | Race | White | + + + | Ethnic Group | Not or | + + + Author + + + | Author | [facility] | | | and [place] | + + + | Organization | [facility] | | | [...] Team Providers + +------+ + | Care Wire Walker Name | Role | Phone | + +------+ + | Radu Prater MD | PCP | | + +------+ + Reason for Visit + + + | Reason | Comments | + + + | Follow-up | hearing test | + + + Encounter Details +--------+---------+ + + + | Date | Type | Department | Care Team | Description | +--------+---------+ + + + | 11/21/ | Office | [facility] [place] | Todd Alberts | Meniere's disease of | | 2018 | Visit | OTOLARYNGOLOGY [address] | MD Radha [address] | right ear (Primary | | | | [address] [place] | Dx) | | | | [place] | [address] | | | | | [address] | | | | | | [phone] | Michael Catalan MD | | | | | | [address] [place] | | | | | | [address] [place] | | | | | | [address] | | | | | | | [...] + + + | Blood Pressure | 118/68 | 11/21/2017 10:06 AM | | | | | PDT | | + + + + + | Pulse | 85 | 11/21/2017 10:06 AM | | | | | PDT | | + + + + + | Temperature | - | - | | + + + + + | Respiratory Rate | 16 | 11/21/2017 10:06 AM | | | | | PDT | | + + + + + | Oxygen Saturation | 98% | 11/21/2017 10:06 AM | | | | | PDT | | + + + + + | Inhaled Oxygen | - | - | | | Concentration | | | | + + + + + | Weight | 81.2 kg (179 lb) | 11/21/2017 10:06 AM | | | | | PDT | | + + + + + | Height | 167.6 cm (5' 6") | 11/21/2017 10:06 AM | | | | | PDT | | + + + + + | Body Mass Index | 28.89 | 11/21/2017 10:06 AM | | | | | PDT | | + + + + + documented in this encounter Progress Notes Michael Catalan MD - 11/21/2017 10:15 AM PDTPatient was seen 1 month ago and had problems wi th fullness in the right ear along with often feeling off balance. She had normal-appearing middle ear and had the diagnosis of right ear Mnire's disease. She's been off of caffe ine and staying on a low-salt diet for the last month. He's not noted any particular improv ement in the fullness. She feels that her hearing is equal in both ears. She's had a lot o f pain in the right trigeminal nerve area and into the right ear. She takes her medication for her migraine headaches the pain and the face is also resolved. Examination: Patient is an alert 37-year-old female patient who is communicating well. Ski n of the face nose and ears all appeared to be smooth and healthy. Ear canals are open and drums are clear. In the oral cavity no mass or lesions were noted. Tongue and soft palate are smooth the moves symmetrically. Neck there was no mass or lymphadenopathy noted. Carly monte's tympanograms were both A shaped tympanograms. Her speech campus receptionist threshold is 10 dB bilaterally. The speech discrimination scores were 100% bilaterally. Impression: Right ear Mnire's disease. Plan: Patient is started on Dyazide 37.5 mg tablets. She'll take 1 daily and be re-seen ag joel in 1 month's time. do cumented in this encounter Plan of Treatment Not on filedocumented as of this encounter Visit Diagnoses + + | Diagnosis | + + | Meniere's disease of right ear - Primary Meniere's disease, unspecified | + + documented in this encounter
--- OUTSIDE RECORDS SUMMARY | ~2020-04-01 | XMS | Encounter Summary ---
Demographics + + + | Address | [address] | | | [place] [address] | + + + | Home Phone | | + + + | Preferred Language | Unknown | + + + | Marital Status | | + + + | Yazidism Affiliation | 1013 | + + + | Race | White | + + + | Ethnic Group | Not or | + + + Author + + + | Author | [facility] | | | and [place] | + + + | Organization | [facility] | | [...] Team Providers + +------+ + | Care Java Golden Gate Developer Name | Role | Phone | + [...] + + | Closed | Specialty | Audiology | Diagnoses | | Do Not Use | | | Services | | Decreased | [place] | - [facility] [place] | | | Required | | hearing of | , Tyler Garcia MD | Audiology And | | | | | right ear | [address] | Hearing Aid | | | | | | [address] [place] | Services [address] | | | | | | [place], [place] | [address] | | | | | | [address] | [address] | | | | | | Phone: | [place], | | | | | | [phone] | [place] [address] | | | | | | Fax: | Phone: | | | | | | [phone] | [phone] | | | | | | | Fax: | | | | | | | [phone] | +--------+ + + + + + Evaluate & Treat (Routine) [...] | | | Services | y | [place], | [place] | MD [address] | | | Required | | right | , Tyler Garcia MD | [address] | | | | | | [address] | [address] [place] | | | | | | Ave [place] | [place], [place] | | | | | | [place], [place] | [address] Phone: | | | | | | [address] | [phone] | | | | | | Phone: | Fax: | | | | | | [phone] | [phone] | | | | | | Fax: | | | | | | | [phone] | | +--------+ + + + + + Reason for Visit +---------+ + | Reason | Comments | +---------+ + | Otalgia | Proc 2/Right sided constant ear pain x 1 year. Has tried numerous | | | providers and medications but not helping. Needs referral to an | | | ENT. | +---------+ + Encounter Details +--------+---------+ + + + | Date | Type | Department | Care Team | Description | +--------+---------+ + + + | 09/07/ | Office | [facility] | Tyler Alberts | right Chasidy, | | 2018 | Visit | CARE [address] | RMD [address] | chronic (Primary | | | | [place] | [address] [place] | Dx); Decreased | | | | [address] | [address] | hearing of right ear | | | | [phone] | | | +--------+---------+ + + + [...] + + + | Blood Pressure | 120/72 | 09/07/2017 1:21 PM | | | | | PDT | | + + + + + | Pulse | 76 | 09/07/2017 1:21 PM | | | | | PDT | | + + + + + | Temperature | 37.1 C (98.7 F) | 09/07/2017 1:21 PM | | | | | PDT | | + + + + + | Respiratory Rate | 16 | 09/07/2017 1:21 PM | | | | | PDT | | + + + + + | Oxygen Saturation | 96% | 09/07/2017 1:21 PM | | | | | PDT | | + + + + + | Inhaled Oxygen | - | - | | | Concentration | | | | + + + + + | Weight | 81.2 kg (179 lb 0.2 | 09/07/2017 1:21 PM | | | | oz) | PDT | | + + + + + | Height | 167.6 cm (5' 6") | 09/07/2017 1:21 PM | | | | | PDT | | + + + + + | Body Mass Index | 28.89 | 09/07/2017 1:21 PM | | | | | PDT | | + + + + + documented in this encounter Patient Instructions Patient Instructions Tyler Alberts MD - 09/07/2017 1:15 PM PDTFormatting of this n ote might be different from the original. No evidence of acute illness requiring specific treatment. Referral has been made for audiogram and ENT evaluation with Dr. Catalan at [facility]. Return in the interim with any new or progressive associated symptoms. Your Hearing Evaluation Your hearing must be tested to find the nature and extent of your hearing loss. Hearing valentina ts show if hearing aids are needed. They also show what sounds you can and can t hear, so hearing aids can be customized for your personal needs. You will likely also be examined to find out if a medical problem has caused your hearing loss. Testing your hearing To evaluate your hearing loss, the following tests may be done: A hearing testshows which tones, sounds, and words you can and can t hear. You wear earphones that are attached to an audiometer (computer) in another room. You will be asked t o respond when you hear tones and sounds that come through the earphones. Word recognition testsshow if you can tell the difference between certain words. This helps identify which tones or sounds you are having trouble hearing. Other testsmay be done to learn more about your hearing loss, such as measuring how we ll your eardrums are working. Your medical exam An exam must be done to find out if your hearing loss is caused by a medical problem. Maddie mishra the exam, your ears, nose, and throat are examined. Also, you ll be asked about your hea lth, your hearing, and any family history of hearing loss. Your answers will help the health care provider understand the problem. Your healthcare team The following healthcare providers may be involved in the evaluation and treatment of your hearing loss: An audiologistevaluates your hearing. He or she then uses the results of this evaluati on to help select the best hearing aids for you. An commercial counsel(ear, nose, and throat healthcare provider) examines you to find ou t if there is a medical reason for your hearing loss. If there is, he or she may recommend t reatment in addition to, or instead of, hearing aids. A hearing aid specialistcan also help you select the hearing aids best suited to your hearing loss. Your family healthcare provider may also do a medical exam. Date Last Reviewed: 12/17/201519999733-1464 [employer]. [address] [place] [address]. All righ ts reserved. This information is not intended as a substitute for professional medical care. Always follow your healthcare professional's instructions. documented in this encounter Progress Notes Tyler Alberts MD - 09/07/2017 1:15 PM PDTFormatting of this note might be differen t from the original. 09/07/2017 Gayathri Alexandre Minerva 1980 Assessment: 1. Otalgia, right, chronic amb ref ent- tania 2. Decreased hearing of right ear * [facility] - AMB Ref erral Greater than 1 year history of right otalgia with more recent subjective decrease in hearin g on the right. Unremarkable exam without evidence of acute illness. Referral was made for audiogram and ENT evaluation with Dr. Catalan. Plan: No evidence of acute illness requiring specific treatment. Referral has been made for audiogram and ENT evaluation with Dr. Catalan at [facility]. Return in the interim with any new or progressive associated symptoms. The risks and benefits, including potential side effects of medication changes, have been d iscussed with the patient. We agreed on implementing the current plan. The note may have been dictated using [employer] voice recognition software. It may have not b een proofread in entirety. Minor errors in grammar may occur. History: Chief Complaint Patient presents with Otalgia Proc 2/Right sided constant ear pain x 1 year. Has tried numerous providers and medicatio ns but not helping. Needs referral to an ENT. Gayathri Palma is a 37 y.o. female here for evaluation of right ear pain starting >1 year ago. Was treated for sinus infection at [facility] 1 year ago without better. Saw Dentist and had r oot canal on the right without benefit. Has tried drops for swimmers ear and ear candle with out benefit. Feels like it needs to pop. Has tried several nasal decongestants without impro vement. Not preceded by associated nasal congestion, sore throat or cough. No fever or chill s. No recent swimming. No ear redness, swelling or drainage. Mild decrease in hearing on rig ht for last 4-5 months, no ringing or vertigo, but feels light headed at times without nause a and vomiting. Normal appetite. No hx of prior similar problems. Current medications, past medical, surgical, family and social histories were reviewed and updated where appropriate. No Known Allergies Physical Exam: BP 120/72 | Pulse 76 | Temp 37.1 C (98.7 F) (Temporal) | Resp 16 | Ht 1.676 m (5' 6 ") | Wt 81.2 kg (179 lb 0.2 oz) | SpO2 96% | BMI 28.89 kg/m General Appearance: Alert, cooperative, middle-aged female in no distress, appears stated age. Head: Normocephalic, no facial sinus tenderness. No mastoid tenderness. No TMJ tenderne ss with opening and closing jaw Eyes: Clear conjunctiva without exudates. Ears: Unremarkable external ear canals with normal-appearing TMs bilaterally. Non- tender over both tragus. No pain to pull pinnae. Grossly normal hearing. Normal Jacobson and Fareed tests. Nose: Clear without exudates. Oropharynx: Moist mucous membranes. Non-erythematous without edema or exudates. No dental tenderness. Neck: Supple, symmetrical, no infraauricular adenopathy. Lungs: Clear to auscultation, respirations unlabored. Skin: Skin color, texture, turgor normal, no rash. Tyler Alberts M.D. documented in th is encounter Miscellaneous Notes Addendum Note - Tyler Alberts MD - 09/07/2017 1:15 PM PDT Addended by: TYLER ARNETT on: 09/07/2017 20:21 Modules accepted: Level of Service documented in this encounter Plan of Treatment + + +--------+ + + | Name | Type | Priori | Associated Diagnoses | Order Schedule | | | | ty | | | + + +--------+ + + | amb ref ent- catalan | Outpatient | Routin | right Chasidy, | Ordered: 09/07/2017 | | | Referral | e | chronic | | + + +--------+ + + | * [facility] | Outpatient | Routin | Decreased Hearing | Ordered: 09/07/2017 | | Audiology and | Referral | e | Of Right Ear | | | Hearing Aid Services | | | | | | - AMB Referral | | | | | + + +--------+ + + documented as of this encounter Visit Diagnoses + + | Diagnosis | + + | Otalgia, right, chronic - Primary | + + | Decreased hearing of right ear | + + documented in this encounter
--- OUTSIDE RECORDS SUMMARY | ~2020-04-01 | XMS | Encounter Summary ---
Demographics + + + | Address | [address] | | | [place] [address] | + + + | Home Phone | | + + + | Preferred Language | Unknown | + + + | Marital Status | | + + + | Sikh Affiliation | 1013 | + + + | Race | White | + + + | Ethnic Group | Not or | + + + Author + + + | Author | [facility] | | | and [place] | + + + | Organization | [facility] | | | and [...] Team Providers + +------+ + | Care Engraving Patternmaker Name | Role | Phone | + +------+ + PCP | Unavailable | + +------+ + Encounter Details +--------+ + + + + | Date | Type | Department | Care Team | Description | +--------+ + + + + | 07/24/ | Hospital | [facility] | | | | 1993 | Encounter | MED CTR EMER[facility]Y | | | | | | CENTER [address] | | | | | | [place] | | | | | | [address] | | | | | | [phone] | | | +--------+ + + + [...]
--- OUTSIDE RECORDS SUMMARY | ~2020-04-01 | XMS | Encounter Summary ---
Demographics + + + | Address | [address] | | | [place] [address] | + + + | Home Phone | | + + + | Preferred Language | Unknown | + + + | Marital Status | | + + + | Voodoo Affiliation | 1013 | + + + | Race | White | + + + | Ethnic Group | Not or | + + + Author + + + | Author | [facility] | | | and [place] | + + + | Organization | [facility] | | | [...] Team Providers + +------+ + | Care Commercial Credit Head Name | Role | Phone | + +------+ + | No, Physician | PCP | Unavailable | + +------+ + Reason for Visit + +--------+ + | Reason | Onset | Comments | | | Date | | + +--------+ + | Referral | 10/10/ | | | (PreAuthorization) | 2012 | | + +--------+ + Encounter Details +--------+ + + + + | Date | Type | Department | Care Team | Description | +--------+ + + + + | 10/10/ | Telephone | [facility] | Kane Muller | Referral | | 2012 | | CONVENIENT CARE [address] | MD [address] | (PreAuthorization) | | | | [facility] | updated address | | | | | [place] | | | | | | [address] | | | | | | [phone] | | | +--------+ + + + [...] Notes Telephone Encounter - Noemí Watters - 10/10/2012 2:31 PM PDTLinda was calling and relati ng a message from Dr. Steele. MRA of the hip is not allowed.hip is not accepted condition do to invasive procedure. We can do MR only..please call to personal cell phone [phone] for questions. This has been done, thanks 1 2:38 PM PDTdocumented in this encounter Plan of Treatment Not on filedocumented as of this encounter Visit Diagnoses Not on filedocumented in this encounter"
--- OUTSIDE RECORDS SUMMARY | ~2020-04-01 | XMS | Encounter Summary ---
Demographics + + + | Address | [address] | | | [place] [address] | + + + | Home Phone | | + + + | Preferred Language | Unknown | + + + | Marital Status | | + + + | Restorationism Affiliation | 1013 | + + + | Race | White | + + + | Ethnic Group | Not or | + + + Author + + + | Author | [facility] | | | and [place] | + + + | Organization | [facility] | | | [...] Team Providers + +------+ + | Care Graphic Art Sales Representative Name | Role | Phone | + +------+ + PCP | Unavailable | + +------+ + Encounter Details +--------+ + + + + | Date | Type | Department | Care Team | Description | +--------+ + + + + | 04/18/ | Hospital | [facility] | Dipak Cantor | | | 2005 | Encounter | CONVERSION [address] | MD [address] | | | | | [address] | [address] | | | | | [place] | [place] | | | | | [address] | [address] | | | | | [phone] | [phone] | | | | | | | | +--------+ + + + [...]
--- OUTSIDE RECORDS SUMMARY | ~2020-04-01 | XMS | Encounter Summary ---
Demographics + + + | Address | [address] | | | [place] [address] | + + + | Home Phone | | + + + | Preferred Language | Unknown | + + + | Marital Status | | + + + | Gnosticism Affiliation | 1013 | + + + | Race | White | + + + | Ethnic Group | Not or | + + + Author + + + | Author | [facility] | | | and [place] | + + + | Organization | [facility] | | | [...] Team Providers + +------+ + | Care Canadian Bacon Tier Name | Role | Phone | + +------+ + PCP | Unavailable | + +------+ + Encounter Details +--------+ + + + + | Date | Type | Department | Care Team | Description | +--------+ + + + + | 04/10/ | [facility] | [facility] | Santosh Palma | | | 1999 | Encounter | MED CTR EMERGENCY | MD [address] | | | | | CENTER [address] | [address] | | | | | [place] | [place] [address] | | | | | [address] | [phone] | | | | | [phone] | | | +--------+ + + + [...]
--- OUTSIDE RECORDS SUMMARY | ~2020-04-01 | XMS | Encounter Summary ---
Demographics + + + | Address | [address] | | | [place] [address] | + + + | Home Phone | | + + + | Preferred Language | Unknown | + + + | Marital Status | | + + + | Anabaptist Affiliation | 1013 | + + + | Race | White | + + + | Ethnic Group | Not or | + + + Author + + + | Author | [facility] | | | and [place] | + + + | Organization | [facility] | | | and [...] Team Providers + +------+ + | Care Stone Fabricator Name | Role | Phone | + +------+ + | Radu Fabian MD | PCP | | + +------+ + Reason for Visit + +--------+ + | Reason | Onset | Comments | | | Date | | + +--------+ + | Hip Pain | 10/28/ | | | | 2012 | | + +--------+ + Encounter Details +--------+ + + + + | Date | Type | Department | Care Team | Description | +--------+ + + + + | 10/28/ | Telephone | [facility] | aKne Muller | Hip Pain | | 2012 | | OCCUPATIONAL HEALTH | MD [address] | | | | | [address] | updated address | | | | [address] [place] | | | | | | [place] | | | | | | [address] | | | | | | [phone] | | | +--------+ + + + [...] Notes Telephone Encounter - Noemí Watters - 10/29/2012 2:07 PM PDTPt. is schedule this coming October 31 @ 1: 00 pm. elephone Encounter - Noemí Watters - 10/28/2012 1:32 PM PDTPatient was seen by Dr.He ramos and he offered her some injections in two different spots. thinks she might have bursitis on one of the spots.IW worker thinks the spot where she is really hurting is not where the injection will be going.IW would like your advise on what to do.I her that you wanted to talk to ...... is in surgery all day. i would be happy to discuss with IW, she should make an appt. documented in t his encounter Plan of Treatment Not on filedocumented as of this encounter Visit Diagnoses Not on filedocumented in this encounter"
--- OUTSIDE RECORDS SUMMARY | ~2020-04-01 | XMS | Encounter Summary ---
Demographics + + + | Address | [address] | | | [place] [address] | + + + | Home Phone | | + + + | Preferred Language | Unknown | + + + | Marital Status | | + + + | Mormonism Affiliation | 1013 | + + + | Race | White | + + + | Ethnic Group | Not or | + + + Author + + + | Author | [facility] | | | and [place] | + + + | Organization | [facility] | | | and [place] | + + + | Address | Unknown | + + + | Phone | Unavailable | + + + Support + + + + + | Name | Relationship | Address | Phone | + + + + + | Leni Addison | ECON | NA | | | | | [place] | | + + + + + Care Team Providers + +------+ + | Care Cruise Counselor Name | Role | Phone | + +------+ + PCP | Unavailable | + +------+ + Encounter Details +--------+ + + + + | Date | Type | Department | Care Team | Description | +--------+ + + + + | 05/21/ | Hospital | [facility] | Radu Prater MD | | | 2006 | Encounter | MED CTR LABORATORY | [address] | | | | | [address] | [place], [place] | | | | | [place] | [address] | | | | | [address] | | | | | | [phone] | | | +--------+ + + + [...]
--- OUTSIDE RECORDS SUMMARY | ~2020-04-01 | XMS | Encounter Summary ---
Demographics + + + | Address | [address] | | | [place] [address] | + + + | Home Phone | | + + + | Preferred Language | Unknown | + + + | Marital Status | | + + + | Zoroastrianism Affiliation | 1013 | + + + | Race | White | + + + | Ethnic Group | Not or | + + + Author + + + | Author | [facility] | | | and [place] | + + + | Organization | [facility] | | [...] Team Providers + +------+ + | Care Rug Dyer Name | Role | Phone | + [...] Closed | | Radiology | Diagnoses | Radu Prater | [facility] | | | | | Facial pain | [address] | [facility] | | | | | Right ear | [address] | [facility] | | | | | pain | [place] | MEDICAL | | | | | Procedures | [facility] | CENTER [address] | | | | | [address] Sinus [place] | [place] [address] | [place] | | | | | [address] | Phone: | [place], | | | | | Head Sinus | [phone] | [place] [address] | | | | | wo Contrast | Fax: | Phone: | | | | | | [phone] | [phone] | | | | | | | Fax: | | | | | | | [phone] | +--------+--------+ + + + + Reason for Visit Auth/Cert +--------+--------+ + + + + | Status | Reason | Specialty | Diagnoses / | Referred By | Referred To | | | | | Procedures | Contact | Contact | +--------+--------+ + + + + | | | | | | | +--------+--------+ + + + + Encounter Details +--------+ + + + + | Date | Type | Department | Care Team | Description | +--------+ + + + + | 10/23/ | Hospital | [facility] | Radu Prater MD | Facial pain; | | 2017 | Encounter | MED CTR [address] | [address] | Right ear pain | | | | [place], | [place], [place] | | | | | [place] [address] | [address] | | | | | [phone] | | | +--------+ + + + [...] + +--------+ + + + | CT SINUS WO CONTRAST | Routin | 10/23/2017 | Facial pain Right | Results for this | | | e | 8:38 AM | ear pain | procedure are in the | | | | PDT | | results section. | + +--------+ + + + documented in this encounter Results CT Sinus WO Contrast (10/23/2017 8:38 AM PDT) + + | Specimen | + + | | + + + + + | Narrative | Performed At | + + + | CT SINUS WO CONTRAST 10/23/2017 8:26 AM HISTORY: FACIAL AND RT EAR | [facility] | | PAIN. COMPARISON: None. PROTOCOL: Thin section axial CT | | | images of the paranasal sinuses were obtained with coronal and | | | sagittal reformations. FINDINGS: Maxillary sinuses and | | | ostiomeatal complexes: Normal. Ethmoid sinuses: Normal. | | | Frontal sinuses and frontal recesses: Normal. Sphenoid sinuses: | | | Normal. Nasal airways: Normal. Limited evaluation of the brain | | | demonstrates no acute findings. Orbits are intact. Imaged mastoid | | | air cells are normal. Ossicles appear intact. Skull base | | | structures are unremarkable. Imaged upper cervical spine shows no | | | acute findings. IMPRESSION - Normal appearance of the paranasal | | | sinuses which are well aerated and without mucosal inflammatory | | | disease. Limited visualization of the mastoid air cells and | | | ossicles is normal. Limited evaluation of the right inner ears showed | | | no suspicious abnormality. Majority of the ears are not included | | | within the [id number] on the CT sinus protocol study. Dictated | | | and Signed by: Earl Cardenas MD Electronically signed: 10/23/2017 | | | 9:53 AM | | + + + + + | Procedure Note | + + | Kei, Rad Results In - 10/23/2017 9:[address] SINUS WO CONTRAST 10/23/2017 8:26 AM | | | | HISTORY: FACIAL AND RT EAR PAIN. | | | | COMPARISON: None. | | | | PROTOCOL: Thin section axial CT images of the paranasal sinuses were obtained | | with coronal and sagittal reformations. | | | | FINDINGS: | | Maxillary sinuses and ostiomeatal complexes: Normal. | | | | Ethmoid sinuses: Normal. | | | | Frontal sinuses and frontal recesses: Normal. | | | | Sphenoid sinuses: Normal. | | | | Nasal airways: Normal. | | | | Limited evaluation of the brain demonstrates no acute findings. Orbits are | | intact. Imaged mastoid air cells are normal. Ossicles appear intact. | | | | Skull base structures are unremarkable. | | | | Imaged upper cervical spine shows no acute findings. | | | | IMPRESSION - | | Normal appearance of the paranasal sinuses which are well aerated and without | | mucosal inflammatory disease. | | | | Limited visualization of the mastoid air cells and ossicles is normal. Limited | | evaluation of the right inner ears showed no suspicious abnormality. Majority of | | the ears are not included within the [id number] on the CT sinus protocol | | study. | | | | Dictated and Signed by: Earl Cardenas MD | | Electronically signed: 10/23/2017 9:53 AM | + + + +---------+ + + | Performing | Address | City/State[facility] | Phone Number | | Organization | | | | + +---------+ + + | [facility] | | | | + +---------+ + + documented in this encounter Visit Diagnoses + + | Diagnosis | + + | Facial pain Headache | + + | Right ear pain Otalgia, unspecified | + + documented in this encounter"
--- OUTSIDE RECORDS SUMMARY | ~2020-04-01 | XMS | Encounter Summary ---
Demographics + + + | Address | [address] [facility] [place] | | | [place] [address] | + + + | Home Phone [...] Team Providers + +------+ + | Care Warp Trucker Name | Role | Phone | + +------+ + | No, Physician | PCP | Unavailable | + +------+ + Reason for Visit +--------+--------+ + | Reason | Onset | Comments | | | Date | | +--------+--------+ + | Other | 09/09/ | | | | 2012 | | +--------+--------+ + Encounter Details +--------+ + + + + | Date | Type | Department | Care Team | Description | +--------+ + + + + | 09/09/ | Telephone | [facility] | Kane Muller | Other | | 2012 | | OCCUPATIONAL HEALTH | MD Carlton Need | | | | | [address] [address] | updated address | | | | | [address] | | | | | | [place] | | | | | | [address] | | | | | | [phone] | | | +--------+ + + + [...] Notes Telephone Encounter - Soledad Navarrete - 09/09/2012 1:23 PM PDTCalled CM today per Dr.Wa mcgill to see what is going on with protest, spoke with Tyree Lovelace at [facility] and he stat ed he will log in Protest of Denial today for CM to review and make final decision on. No ti me frame was given I will follow up on 09/12/2012 with CM. documented in this encounter Plan of Treatment Not on filedocumented as of this encounter Visit Diagnoses Not on filedocumented in this encounter"
--- OUTSIDE RECORDS SUMMARY | ~2020-04-01 | XMS | Encounter Summary ---
Demographics + + + | Address | [address] [facility] | | | [place] [address] | + + + | Home Phone | | + + + | Preferred Language | Unknown | + + + | Marital Status | | + + + | Sikhism Affiliation | 1013 | + + + | Race | White | + + + | Ethnic Group | Not or | + + + Author + + + | Author | [facility] | | | and [place] | + + + | Organization | [facility] | | | [...] Team Providers + +------+ + | Care Manager Of Employee Relations Name | Role | Phone | + +------+ + PCP | Unavailable | + +------+ + Encounter Details +--------+ + + + + | Date | Type | Department | Care Team | Description | +--------+ + + + + | 12/10/ | [facility] | [facility] | Kane Muller | | | 2011 | Encounter | MED CTR XRAY [address] | MD Carlton Need | | | | | [address] | updated address | | | | | [place] [address] | | | | | | [phone] | | | +--------+ + + + [...] +---------+ + + | gabapentin | Take 300 mg by mouth | | 0 | 10/24/19 | | | (NEURONTIN) 300 mg | 3 times daily. | | | 12 | 3 | | capsule | | | | | | + + + +---------+ + + | gabapentin | Take one cap at | | 0 | 10/24/19 | | | (NEURONTIN) 300 mg | bedtime for 5 days. | | | 12 | 3 | | capsule | Increase to 3 times | | | | | | | daily as tolerated. | | | | | + + [...] + + + +---------+ + + | PARoxetine (PAXIL) | take one half tablet | | 0 | 11/07/19 | | | 20 mg tablet | every day for one | | | 12 | 3 | | | week then increase | | | | | | | to one pill per day | | | | | + + + +---------+ + + documented as of this encounter Plan of Treatment Not on filedocumented as of this encounter Procedures + +--------+ + + + | Procedure Name | Priori | Date/Time | Associated Diagnosis | Comments | | | ty | | | | + +--------+ + + + | NM BONE SCAN SPECT | | 12/11/2011 | | Results for this | | | | 7:46 AM | | procedure are in the | | | | PDT | | results section. | + +--------+ + + + documented in this encounter Results NM Bone Scan SPECT (12/11/2011 7:46 AM PDT) + + | Specimen | + + | | + + + + + | Narrative | Performed At | + + + | [facility] Diagnostic Imaging Department | [facility] | | [address] | [facility] | | LUMBAR SPINE BONE SCAN WITH | DIAG IMG | | SPECT: 12/11/2011 HISTORY: BACK PAIN; ASSESS SI JOINTS. | | | TECHNIQUE: Planar bone imaging was performed through the lumbar | | | spine approximately three hours after the intravenous administration | | | of 25.7 mCi Tc- 99m HDP. SPECT acquisition was then performed | | | through the lumbar spine. FINDINGS: No abnormal bone tracer | | | uptake is identified within the lumbosacral spine or visualized | | | portions of pelvis. Particular attention is paid to the sacrum and | | | SI joints which are scintigraphically unremarkable. IMPRESSION: | | | 1. NORMAL STUDY. Dictated Date/Time: 12/11/2011 14:04 | | | Transcribed Date/Time: 12/11/2011 15:14 Airport Driver: | | | <Electronically Signed by Xu Dhillon MD> 12/12/11 0908 | | + + + + + | Procedure Note | + + | Kei, Rad Conversion - 07/25/2013 5:35 PM [facility] | | Diagnostic Imaging Department | | [address] [facility] [facility] | | | | | | | | LUMBAR SPINE BONE SCAN WITH SPECT: 12/11/2011 | | | | HISTORY: BACK PAIN; ASSESS SI JOINTS. | | | | TECHNIQUE: Planar bone imaging was performed through the lumbar spine | | approximately three hours after the intravenous administration of 25.7 mCi Tc- | | 99m HDP. SPECT acquisition was then performed through the lumbar spine. | | | | FINDINGS: No abnormal bone tracer uptake is identified within the lumbosacral | | spine or visualized portions of pelvis. Particular attention is paid to the | | sacrum and SI joints which are scintigraphically unremarkable. | | | | IMPRESSION: | | 1. NORMAL STUDY. | | | | Dictated Date/Time: 12/11/2011 14:04 | | Transcribed Date/Time: 12/11/2011 15:14 | | Airport Driver: | | <Electronically Signed by Xu Dhillon MD> 12/12/11 0908 | + + + +---------+ + + [...]
--- OUTSIDE RECORDS SUMMARY | ~2020-04-01 | XMS | Encounter Summary ---
Demographics + + + | Address | [address] | | | [place] [address] | + + + | Home Phone | | + + + | Preferred Language | Unknown | + + + | Marital Status | | + + + | Latter Day Affiliation | 1013 | + + + | Race | White | + + + | Ethnic Group | Not or | + + + Author + + + | Author | [facility] | | | and [place] | + + + | Organization | [facility] | | | [...] Team Providers + +------+ + | Care Logistics Program Manager Name | Role | Phone [...] | Lumbar | Kane | [address] | | | | | sprain | MD Carlton | [place] | | | | | Sprain of | Need updated | [place] | | | | | left hip | address | [address] | | | | | Place of | | Phone: | | | | | occurrence, | | [phone] | | | | | industrial | | Fax: | | | | | places and | | [phone] | | | | | premises | [...] | +--------+ + + + + | 10/16/ | Hospital | [facility] | Kane Muller | Lumbar sprain; | | 2012 | Encounter | MED CTR XRAY [address] | MD Carlton Need | Sprain of left hip; | | | | [place] | updated address | Place of occurrence, | | | | [place] [address] | | industrial places | | | | [phone] | | and premises | +--------+ + [...] one tablet 2-3 | | 0 | // | | | (ADVIL,MOTRIN) 800 | times daily as | | | 12 | | | MG tablet | needed | | | | | + + + +---------+ + + | FLUoxetine | Take 20 mg by mouth | | 0 | | 03/23/201 | | (PROZAC) 20 mg | Daily. [...] + +--------+ + + + | MRI HIP LEFT WO | Routin | 10/16/2012 | Lumbar sprain | Results for this | | CONTRAST | e | 2:27 PM | Sprain of left hip | procedure are in the | | | | PDT | Place of occurrence, | results section. | | | | | industrial places | | | | | | and premises | | + +--------+ + + + documented in this encounter Results MRI Hip Left wo Contrast (10/16/2012 2:27 PM PDT) + + | Specimen | + + | | + + + + + | Narrative | Performed At | + + + | [facility] Diagnostic Imaging | [place] | | Department [address] [place] | [facility] | | [ rep [address]] [ rep ct [facility] | | st zip] Signed | - IMAGING | | | | | Patient Name: PENELOPE PALMA Physician: | | | : 1980 Age: 32 Sex: F Unit #: [id number] | | | Exam Date: 10/16/12 Location: [facility] | | | Report #: [id number] Page: | | | %(RAD)RES..mtdd.print.filter("pg") of %(RAD) | | | RES..mtdd.print.filter("tpg") | | | | | | Accession Number: [id number] | | | MRI LEFT HIP, 10/16/2012 [...] Pascual MD 10/16/12 1427 | | | Geoscience Technician: Jennie Mckenzie10/17/12 0839 | | | Kane Muller MD | | + + + + + + + + | Performing | Address | City/State/Zipcode | Phone Number | | Organization | | | | + + + + + | [facility] | [address] | [place], [place] | [phone] | | [facility] | | [address] | | | - IMAGING | | | | + + + + + documented in this encounter Visit Diagnoses + + | Diagnosis | + + | Lumbar sprain Sprain of lumbar region | + + | Sprain of left hip Sprain and strain of unspecified site of hip and thigh | + + | Place of occurrence, industrial places and premises | + + documented in this encounter
--- OUTSIDE RECORDS SUMMARY | ~2020-04-01 | XMS | Encounter Summary ---
Demographics + + + | Address | [address] [facility] [facility] | | | [place] [address] | + + + | Home Phone | | + + + | Preferred Language | Unknown | + + + | Marital Status | | + + + | Amish Affiliation | 1013 | + + + | Race | White | + + + | Ethnic Group | Not or | + + + Author + + + | Author | [facility] | | | and [place] | + + + | Organization | [facility] | | | [...] Team Providers + +------+ + | Care Budget Specialist Name | Role | Phone | + +------+ + PCP | Unavailable | + +------+ + Encounter Details +--------+ + + + + | Date | Type | Department | Care Team | Description | +--------+ + + + + | 07/20/ | Hospital | [facility] | | | | 2000 | Encounter | MED CTR XRAY [address] | | | | | | [place] | | | | | | [place] [address] | | | | | | [phone] | | | +--------+ + + + [...]
--- OUTSIDE RECORDS SUMMARY | ~2020-04-01 | XMS | Encounter Summary ---
Demographics + + + | Address | [address] [facility] | | | [place] [address] | + + + | Home Phone | | + + + | Preferred Language | Unknown | + + + | Marital Status | | + + + | Latter-Day Affiliation | 1013 | + + + [...] Team Providers + +------+ + | Care Application Programmer Analyst Name | Role | Phone | + +------+ + | Radu Prater MD | PCP | | + +------+ + Reason for Visit + + + | Reason | Comments | + + + | Headache (Adult - | | | New Onset Or New | | | Symptoms) | | + + + Encounter Details +--------+ + + + + | Date | Type | Department | Care Team | Description | +--------+ + + + + | 12/26/ | Emergency | [facility] | [place], | Episodic paroxysmal | | 2018 | | MED CTR EMERGENCY | Carlton Rangel MD [address] | hemicrania, not | | | | CENTER [address] | [address] [facility] | intractable (Primary | | | | [place], [place] | [place] [address] | Dx) | | | | [address] | [phone] | | | | | [phone] | | | +--------+ + + + [...] + + + | Blood Pressure | 111/66 | 12/26/2017 9:26 AM | | | | | PDT | | + + + + + | Pulse | 76 | 12/26/2017 9:26 AM | | | | | PDT | | + + + + + | Temperature | 37 C (98.6 F) | 12/26/2017 7:56 AM | | | | | PDT | | + + + + + | Respiratory Rate | 16 | 12/26/2017 7:56 AM | | | | | PDT | | + + + + + | Oxygen Saturation | 98% | 12/26/2017 9:26 AM | | | | | PDT | | + + + + + | Inhaled Oxygen | - | - | | | Concentration | | | | + + + + + | Weight | 82.6 kg (182 lb) | 12/26/2017 7:56 AM | | | | | PDT | | + + + + + | Height | 167.6 cm (5' 6") | 12/26/2017 7:56 AM | | | | | PDT | | + + + + + | Body Mass Index | 29.38 | 12/26/2017 7:56 AM | | | | | PDT | | + + + + + documented in this encounter Discharge Instructions Instructions Carlton Miller MD - 12/26/2017Uses Imitrex for recurrent headaches Reglan for headaches and nausea Follow-up with Dr. Prater documented in this encounter Medications at Time [...] | | 0 | | | | (MAXALT-PAINTER BOTTOM) 10 mg | as needed for | [...] documented as of this encounter ED Notes Carlton Miller MD - 12/26/2017 8:23 AM PDTFormatting of this note might be differe nt from the original. [facility] Gayathri Palma Emergency Department Encounter Note [address] [place] [id number] PCP:Radu Prater MD [phone] DIAGNOSIS: 1. Episodic paroxysmal hemicrania, not intractable CHIEF COMPLAINT: Chief Complaint Patient presents with Headache (Adult - New Onset Or New Symptoms) Mode of Arrival: walk-in ED Room: [address] Gayathri Palma is a 37 y.o. female who presents to the Emergency Department for evaluation o f headaches. She's had headaches for the last 2 months, they have been worsening in severit y and frequency. They are always on the right side, in the temporal and retro-orbital regio n. She has no photophobia but has had some nausea, no vomiting. No fevers or chills. She has not had changes in vision but states that she has had some pain in her ear and some davis ge or decreased sensation of smell. She was referred to ENT and was diagnosed with Mnir e's disease. She states she was prescribed some type of medication but she did not feel it was helping. She is followed by Dr. Prater. She has Maxalt which she was taking and was not h elping much. PAST MEDICAL & SURGICAL HISTORY Patient Active Problem List Diagnosis Date Noted LUMBAR DISC DISPLACEMENT BACK PAIN, LUMBAR TROCHANTERIC BURSITIS LUMBAR RADICULOPATHY SACROILIITIS DEGENERATIVE DISC DISEASE, LUMBAR SPINE DEPRESSION U/S No past surgical history on file. CURRENT MEDICATIONS Discharge Medication List as of 12/26/2017 9:24 CONTINUE these medications which have NOT CHANGED Details ibuprofen (ADVIL,MOTRIN) 800 MG tablet Take one tablet 2-3 times daily as needed rizatriptan (MAXALT-PAINTER BOTTOM) 10 mg disintegrating tablet Take 10 mg by mouth as needed for Migr karlene. May repeat in 2 hours if neededHistorical Med ALLERGIES No Known Allergies FAMILY AND SOCIAL HISTORY No family history on file. Social History Social History Marital status: Spouse name: N/A Number of children: N/A Years of education: N/A Social History Main Topics Smoking status: Never Smoker Smokeless tobacco: Former User Alcohol use Not on file Drug use: Unknown Sexual activity: Not on file Other Topics Concern Not on file Social History Narrative No narrative on file REVIEW OF SYSTEMS As in history of present illness. A 10 system review was otherwise negative. PHYSICAL EXAM VITAL SIGNS: (first vital signs):Temp: 37 C (98.6 F) Pulse: 104 Resp: 16 SpO2: 100 % BP : 148/82 Body mass index is 29.38 kg/m. Constitutional: Moderately uncomfortable female patient. HEENT: Atraumatic, PERRL, fundi clearly visualized bilaterally with sharp disc margins and a normal vascular pattern, Oropharynx benign. TMs are clear bilaterally Neck: Supple with full range of motion. No JVD, no lymphadenopathy and no meningismus Chest: Good air movement bilaterally. No wheezes, No, rales. Cardiovascular: Normal S1 S2 Abdomen: Soft, nontender Back: Within normal limits Extremities: Nontender. Skin: Warm, Dry, No rashes no vesicles or evidence of shingles Neurologic: Alert & oriented. Cranial nerves II-XII intact , Gait and speech are normal Psychiatric: Normal mood, affect and judgement. IMAGING STUDIES (X-Rays interpreted by ED Physician) Radiology Interpretations: Ct Head Wo Contrast IMPRESSION - No acute intracranial findings. Dictated and Signed by: Girish Vergara MD Elect ronically signed: 12/26/2017 9:18 AM ED COURSE & MEDICAL DECISION MAKING Pertinent Labs & Imaging studies were reviewed along with EMS notes and care home record s if applicable. (See chart for details) Medications and Allergy list reviewed. Nurses note and old records were reviewed The patient was seen and examined, her history I did go ahead and obtain a noncontrast head CT. The patient received some Reglan and Toradol initially with some slight improvement in symptoms. This was followed by a subcutaneous dose of Imitrex which worked very well for t he patient. Her headache did not resolve completely what was markedly improved. CT was lennox ssuring. Mental status remains normal. This may be a migraine type headache that she has h aving and so we will treat her with some outpatient Imitrex and primary care follow-up. Follow up information and return precautions were discussed in detail at the bedside prior to discharge and all questions were answered. Last Set of Vital Signs: Temp: 37 C (98.6 F) Pulse: 76 Resp: 16 SpO2: 98 % BP: 111/66 FINAL IMPRESSION ICD-10-CM ICD-9-CM 1. Episodic paroxysmal hemicrania, not intractable G44.039 339.03 Follow-up Information Radu Prater MD. Specialty: Family Medicine Contact information: [address] [facility] [address] Discharge Medication List as of 12/26/2017 9:24 START taking these medications Details metoclopramide (REGLAN) 10 mg tablet Take 1 tablet by mouth every 6 hours as needed for Raji sea.Disp-15 tablet, R-0, Normal SUMAtriptan (IMITREX) 25 mg tablet Take 1 tablet by mouth as needed.Disp-30 tablet, R-0, No rmal Administrations This Visit ketorolac (TORADOL) injection 15 mg Admin Date 12/26/2017 Action Given Dose 15 mg Route Intravenous Administered By Trinity Roberson RN metoclopramide (REGLAN) 5 mg/mL injection 10 mg Admin Date 12/26/2017 Action Given Dose 10 mg Route Intravenous Administered By Trinity Roberson RN SUMAtriptan (IMITREX) 6 mg/0.5 mL injection (vial) 6 mg Admin Date 12/26/2017 Action Given Dose 6 mg Route Subcutaneous Administered By Trinity Roberson RN Portions of this chart were created with [employer] voice recognition software. Inadvertent so und alike substitutions may be present and are unintentional Carlton Miller MD 12/26/17 1303 Aixa Heard RN - 12/26/2017 7:53 AM PDTFrequent headaches for the last two months. Has being seein primary care about this. Nausea today with headache. Awake and alert. States has taken her last Maxalt. No vomiting, pink, warm, dry skin. documented in this encounter Plan of Treatment Not on filedocumented as of this encounter Procedures + +--------+ + + + | Procedure Name | Priori | Date/Time | Associated Diagnosis | Comments | | | ty | | | | + +--------+ + + + | CT HEAD WO CONTRAST | STAT | 12/26/2017 | | Results for this | | | | 8:41 AM | | procedure are in the | | | | PDT | | results section. | + +--------+ + + + documented in this encounter Results CT Head wo Contrast (12/26/2017 8:41 AM PDT) + + | Specimen | + + | | + + + + + | Narrative | Performed At | + + + | CT HEAD WO CONTRAST 12/26/2017 8:36 AM HISTORY: Worsening | [facility] | | headaches. COMPARISON: None. PROTOCOL: Axial images of the | | | head were obtained along with coronal and sagittal reformations. | | | FINDINGS: The brain parenchyma demonstrates no evidence for acute | | | infarct, mass lesion, or hemorrhage. The brainstem is unremarkable. | | | The cerebellum is normal. The pituitary gland is grossly normal. | | | The ventricles, cisterns, and sulci are of normal size and shape. | | | Limited evaluation of the vasculature demonstrates no acute findings. | | | The orbits show no acute findings. Paranasal sinuses are clear. | | | Mastoid air cells are normal. Calvarium, temporal bones, and | | | skull base structures are unremarkable. IMPRESSION - No acute | | | intracranial findings. Dictated and Signed by: Girish Vergara MD | | | Electronically signed: 12/26/2017 9:18 AM | | + + + + + | Procedure Note | + + | Kei, Rad Results In - 12/26/2017 9:[address] HEAD WO CONTRAST 12/26/2017 8:36 AM | | | | HISTORY: Worsening headaches. | | | | COMPARISON: None. | | | | PROTOCOL: Axial images of the head were obtained along with coronal and sagittal | | reformations. | | | | FINDINGS: | | The brain parenchyma demonstrates no evidence for acute infarct, mass lesion, or | | hemorrhage. The brainstem is unremarkable. The cerebellum is normal. The | | pituitary gland is grossly normal. | | | | The ventricles, cisterns, and sulci are of normal size and shape. | | | | Limited evaluation of the vasculature demonstrates no acute findings. | | | | The orbits show no acute findings. Paranasal sinuses are clear. Mastoid air | | cells are normal. | | | | Calvarium, temporal bones, and skull base structures are unremarkable. | | | | IMPRESSION - | | No acute intracranial findings. | | | | Dictated and Signed by: Girish Vergara MD | | Electronically signed: 12/26/2017 9:18 AM | + + + +---------+ + + | Performing | Address | City/State/Zipcode | Phone Number | | Organization | | | | + +---------+ + + | [facility] | | | | + +---------+ + + documented in this encounter Visit Diagnoses + + | Diagnosis | + + | Episodic paroxysmal hemicrania, not intractable - Primary Episodic paroxysmal | | hemicrania | + + documented in this encounter Administered Medications + +--------+ +-------+------+------+ | Medication Order | MAR | Action | Dose | Rate | Site | | | Action | Date | | | | + +--------+ +-------+------+------+ | ketorolac (TORADOL) injection | Given | 12/27/19 | 15 mg | | | | 15 mg 15 mg, Intravenous, ONCE, | | 18 8:26 | | | | | 12/26/17 at 0820, For 1 dose | | AM PDT | | | | + +--------+ +-------+------+------+ +---+---+ | | | +---+---+ + +-------+ +-------+---+---+ | metoclopramide (REGLAN) 5 mg/mL | Given | 12/27/19 | 10 mg | | | | injection 10 mg 10 mg, | | 18 8:24 | | | | | Intravenous, ONCE, Sun12/26/17 at | | AM PDT | | | | | 0820, For 1 dose, Protect from | | | | | | | light., | | | | | | + +-------+ +-------+---+---+ +---+---+ | | | +---+---+ + +-------+ +------+---+ + | SUMAtriptan (IMITREX) 6 mg/0.5 | Given | 12/27/19 | 6 mg | | Arm-Righ | | mL injection (vial) 6 mg 6 mg, | | 18 8:48 | | | t Upper | | Subcutaneous, ONCE, Sun12/26/17 | | AM PDT | | | | | at 0820, For 1 dose, May repeat | | | | | | | initial dose after 1 hour. Do not | | | | | | | exceed 12 mg in 24 hours., | | | | | | + +-------+ +------+---+ + +---+---+ | | | +---+---+ documented in this encounter
--- OUTSIDE RECORDS SUMMARY | ~2020-04-01 | XMS | Encounter Summary ---
Demographics + + + | Address | [address] | | | [place] [address] | + + + | Home Phone | | + + + | Preferred Language | Unknown | + + + | Marital Status | | + + + | Anglican Affiliation | 1013 | + + + | Race | White | + + + | Ethnic Group | Not or | + + + Author + + + | Author | [facility] | | | and [place] | + + + | Organization | [facility] | | | [...] Team Providers + +------+ + | Care Histology Manager Name | Role | Phone | + +------+ + PCP | Unavailable | + +------+ + Encounter Details +--------+ + + + + | Date | Type | Department | Care Team | Description | +--------+ + + + + | 03/31/ | Hospital | [facility] | | | | 1999 | Encounter | MED CTR EMERGENCY | | | | | | [place] [facility] [address] | | | | | | [place] | | | | | | [address] | | | | | | [phone] | | | +--------+ + + + [...]
--- OUTSIDE RECORDS SUMMARY | ~2020-04-01 | XMS | Encounter Summary ---
Demographics + + + | Address | [address] | | | [place] [address] | + + + | Home Phone | | + + + | Preferred Language | Unknown | + + + | Marital Status | | + + + | Episcopalian Affiliation | 1013 | + + + | Race | White | + + + | Ethnic Group | Not or | + + + Author + + + | Author | [facility] | | | and [place] | + + + | Organization | [facility] | | | and [place] | + + + | Address | Unknown | + + + | Phone | Unavailable | + + + Support + + + + + | Name | Relationship | Address | Phone | + + + + + | Leni Cuellar ECON | NA | | | | | [place] | | + + + + + Care Team Providers + +------+ + | Care Blacktop Paver Operator Name | Role | Phone | + +------+ + | Radu Prater MD | PCP | | + +------+ + Encounter Details +--------+---------+ + + + | Date | Type | Department | Care Team | Description | +--------+---------+ + + + | 11/21/ | Office | [facility] | Todd Alberts | Pressure sensation | | 2018 | Visit | AUDIOLOGY AND | MD Radha [address] | in ear, right | | | | [facility] | [address] [place] [facility] [place] | (Primary Dx) | | | | [address] | [address] | | | | | [address] | | | | | | [place] [address] | Alberto Ana Rosa, [place] | | | | | [phone] | [facility] [address] | | | | | | [address] [place] | | | | | | [place] [address] | | | | | | [phone] | | | | | | | [...] documented as of this encounter Progress Notes Ana Rosa Dominguez MS CCC-A - 11/21/2017 9:30 AM PDTReferring Provider: Todd Ramos Ms. Palma presents with plugged feeling accompanied by pain in the right ear, onset 1 year and three months ago. Results of Hearing Test: Right ear--Pure tone air conduction testing showed 15-10dB thresho ld at 250 Hz through 8 KHz. Left ear --Pure tone air conduction testing showed 10-5dB threshold at 250 Hz through 8 KHz. Speech Recognition Thresholds were 10dB in the right ear and 10dB in the left ear. Speech Discrimination Scores were 100% in right ear and 100% in the left ear. Tympanometry showed normal type A tracings in both ears. Impression and Recommendation: Normal hearing sensitivity in both ears. Feeling of pressu re in the right ear. In addition to Dr. Catalan's recommendation regarding Meniere's, a gentl e massage with oil in both ears was suggested, as well as the addition of drinking celery ju ice in the morning for its mineral salt content. Follow-up care with Dr. Catalan, Sr. Thank you. documented in thi s encounter Plan of Treatment Not on filedocumented as of this encounter Procedures + +--------+ + + + | Procedure Name | Priori | Date/Time | Associated Diagnosis | Comments | | | ty | | | | + +--------+ + + + | DIAGNOSTIC REPORT - | | 11/21/2017 | | Results for this | | EXTERNAL SCAN | | 12:00 AM | | procedure are in the | | | | PDT | | results section. | + +--------+ + + + documented in this encounter Results DIAGNOSTIC REPORT - EXTERNAL SCAN (11/21/2017 12:00 AM PDT) + + + | Narrative | Performed At | + + + | Ordered by an | | | unspecified provider. | | + + + documented in this encounter Visit Diagnoses + + | Diagnosis | + + | Pressure sensation in ear, right - Primary | + + documented in this encounter"
--- OUTSIDE RECORDS SUMMARY | ~2020-04-01 | XMS | Encounter Summary ---
Demographics + + + | Address | [address] | | | [place] [address] | + + + | Home Phone | | + + + | Preferred Language | Unknown | + + + | Marital Status | | + + + | Congregational Affiliation | 1013 | + + + [...] Team Providers + +------+ + | Care Attic Blower Name | Role | Phone | + +------+ + PCP | Unavailable | + +------+ + Encounter Details +--------+ + + + + | Date | Type | Department | Care Team | Description | +--------+ + + + + | 09/20/ | [facility] | [facility] | Kane Muller | | | 2011 | Encounter | MED CTR XRAY [address] | MD [address]ton Need | | | | | [place] | updated address | | | | | [place] [address] | | | | | | [phone] | | | +--------+ + + + [...] + +--------+ + + + | XR LUMBAR SPINE 2 OR | | 09/21/2011 | | Results for this | | 3 VW | | 1:42 PM | | procedure are in the | | | | PDT | | results section. | + +--------+ + + + documented in this encounter Results XR Lumbar Spine 2 or 3 Vw (09/21/2011 1:42 PM PDT) + + | Specimen | + + | | + + + + + | Narrative | Performed At | + + + | [facility] Diagnostic Imaging Department | [facility] | | [address] | [facility] | | THREE VIEWS OF LUMBAR SPINE, | DIAG IMG | | 09/21/2011 CLINICAL HISTORY: BACK PAIN. COMPARISON: Lumbar | | | MRI 08/23/2011. FINDINGS: Lateral views of the lumbar spine in | | | neutral, flexed and extended positions are provided. The most | | | inferior lumbar-type vertebra is again designated L5. Lumbar vertebral | | | height, disk spaces a nd alignment are maintained, without evident | | | fracture, conclusive spondylolysis or spondylolisthesis, even with | | | active flexion and extension. Lower lumbar facet hypertrophy is | | | suggested. Imaged chest an d abdomen are unremarkable. | | | IMPRESSION: 1. LOWER LUMBAR FACET HYPERTROPHY WITHOUT RADIOGRAPHIC | | | EVIDENCE OF INSTABILITY. Dictated Date/Time: 09/21/2011 17:08 | | | Transcribed Date/Time: 09/21/2011 17:14 Fish Trapper: | | | <Electronically Signed by Ulysses Quesada MD> 09/21/11 [id number] | | + + + + + | Procedure Note | + + | Kei, Rad Conversion - 07/25/2013 5:03 PM [facility] | | Diagnostic Imaging Department [address] [place] [address] | | THREE VIEWS OF LUMBAR SPINE, 09/21/2011 CLINICAL | | HISTORY: BACK PAIN. COMPARISON: Lumbar MRI 08/23/2011. FINDINGS: Lateral views of | | the lumbar spine in neutral, flexed and extended positions are provided. The most | | inferior lumbar-type vertebra is again designated L5. Lumbar vertebral height, disk | | spaces and alignment are maintained, without evident fracture, conclusive spondylolysis | | or spondylolisthesis, even with active flexion and extension. Lower lumbar facet | | hypertrophy is suggested. Imaged chest and abdomen are unremarkable. IMPRESSION: 1. | | LOWER LUMBAR FACET HYPERTROPHY WITHOUT RADIOGRAPHIC EVIDENCE OF INSTABILITY. Dictated | | Date/Time: 09/21/2011 17:08Transcribed Date/Time: 09/21/2011 17:14Transcriptionist: | | <Electronically Signed by Ulysses Quesada MD> 09/21/112253 | |FINDINGS: Lateral views of the lumbar spine in neutral, flexed and extended positions are provided. | |The most inferior lumbar-type vertebra is again designated L5. Lumbar vertebral height, dis k spaces a | |nd alignment are maintained, without evident fracture, conclusive spondylolysis or spondylo listhesis, | | even with active flexion and extension. Lower lumbar facet hypertrophy is suggested. Image d chest an | |d abdomen are unremarkable. | | | |IMPRESSION: | |1. LOWER LUMBAR FACET HYPERTROPHY WITHOUT RADIOGRAPHIC EVIDENCE OF INSTABILITY. | | | |Dictated Date/Time: 09/21/2011 17:08 | |Transcribed Date/Time: 09/21/2011 17:14 | |Fish Trapper: | |<Electronically Signed by Ulysses Quesada MD> 09/21/112253 | + + + +---------+ + + | Performing | Address | City/State/Zipcode | Phone Number | | Organization | | | | + +---------+ + + | [place] | | | | | [facility] | | | | + +---------+ + + documented in this encounter Visit Diagnoses Not on filedocumented in this encounter"
--- OUTSIDE RECORDS SUMMARY | ~2020-04-01 | XMS | Encounter Summary ---
Demographics + + + | Address | [address] | | | [place] [address] | + + + | Home Phone | | + + + | Preferred Language | Unknown | + + + | Marital Status | | + + + | Congregation Affiliation | 1013 | + + + | Race | White | + + + | Ethnic Group | Not or | + + + Author + + + | Author | [facility] | | | and [place] | + + + | Organization | [facility] | | [...] Team Providers + +------+ + | Care Safety Trainer Name | Role | Phone | + +------+ + | Radu Fabian MD | PCP | | + +------+ + Encounter Details +--------+ + + + + | Date | Type | Department | Care Team | Description | +--------+ + + + + | 10/11/ | Orders Only | [facility] [place] | Kane Muller | | | 2012 | | CONVENIENT CARE [address] | MD Carlton Need | | | | | [address] [place] | updated address | | | | | [place] | | | | | | [address] | | | | | | [phone] | | | +--------+ + + + [...]
--- OUTSIDE RECORDS SUMMARY | ~2020-04-01 | XMS | Encounter Summary ---
Demographics + + + | Address | [address] | | | [place] [address] | + + + | Home Phone [...] Author + + + | Author | [facility] | | | and [place] | + + + | Organization | [facility] | | | [...] Team Providers + +------+ + | Care Stock Car Driver Name | Role | Phone | + +------+ + | No, Physician | PCP | Unavailable | + +------+ + Reason for Visit + +--------+ + | Reason | Onset | Comments | | | Date | | + +--------+ + | Medication Refill | 10/16/ | | | | 2012 | | + +--------+ + Encounter Details +--------+--------+ + + + | Date | Type | Department | Care Team | Description | +--------+--------+ + + + | 10/16/ | Refill | [facility] | Kane Muller | Medication Refill | | 2012 | | OCCUPATIONAL HEALTH | MD Carlton Need | | | | | [address] | updated address | | | | | [address] [place] | | | | | | [place] | | | | | | [address] | | | | | | [phone] | | | +--------+--------+ + + + [...] | Diagnosis | + + | Lumbar back sprain - Primary Sprain of lumbar region | + + documented in this encounter"
--- OUTSIDE RECORDS SUMMARY | ~2020-04-01 | XMS | Encounter Summary ---
Demographics + + + | Address | [address] | | | [place] [address] | + + + | Home Phone | | + + + | Preferred Language | Unknown | + + + | Marital Status | | + + + | Rastafarian Affiliation | 1013 | + + + | Race | White | + + + | Ethnic Group | Not or | + + + Author + + + | Author | [facility] | | | and [place] | + + + | Organization | [facility] | | | [...] Team Providers + +------+ + | Care Tow Bar Driver Name | Role | Phone | + +------+ + PCP | Unavailable | + +------+ + Encounter Details +--------+ + + + + | Date | Type | Department | Care Team | Description | +--------+ + + + + | 10/28/ | Hospital | [facility] | | | | 2009 | Encounter | MED CTR EMERGENCY | | | | | | [place] [address] | | | | | | [place] | | | | | | [address] | | | | | | [phone] | | | +--------+ + + + [...]
--- OUTSIDE RECORDS SUMMARY | ~2020-04-01 | XMS | Encounter Summary ---
Demographics + + + | Address | [address] | | | [place] [address] | + + + | Home Phone [...] + + + | Author | [facility] | | | and [place] | + + + | Organization | [facility] | | | [...] Team Providers + +------+ + | Care Regional Education Manager Name | Role | Phone | + +------+ + PCP | Unavailable | + +------+ + Encounter Details +--------+ + + + + | Date | Type | Department | Care Team | Description | +--------+ + + + + | 02/27/ | Abstract | [place] [facility] | [facility] | | | 2011 | | Conversion Location | SR | | | | | [address] | | | | | | [place], [place] | | | | | | [address] | | | | | | [phone] | | | +--------+ + + + [...] + + + | Blood Pressure | 104/60 | 02/26/2012 12:00 AM | | | | | [...] Weight | 72.6 kg (160 lb) | 02/26/2012 12:00 AM | | | | | PDT | | + + + + + | Height | 167.6 cm (5' 6") | 01/20/2011 12:00 AM | | | | | PDT | | + + + + + | Body Mass Index | 25.82 | 01/20/2011 12:00 AM | | | | | PDT | | + + + + + documented in this encounter Plan of Treatment Not on filedocumented as of this encounter Visit Diagnoses Not on filedocumented in this encounter
--- OUTSIDE RECORDS SUMMARY | ~2020-04-01 | XMS | Encounter Summary ---
Demographics + + + | Address | [address] | | | [place] [address] | + + + | Home Phone | | + + + | Preferred Language | Unknown | + + + | Marital Status | | + + + | Christianity Affiliation | 1013 | + + + | Race | White | + + + | Ethnic Group | Not or | + + + Author + + + | Author | [facility] | | | and [place] | + + + | Organization | [facility] | | [...] Team Providers + +------+ + | Care Back Tender Cylinder Name | Role | Phone | + +------+ + | No, Physician | PCP | Unavailable | + +------+ + Encounter Details +--------+ + + + + | Date | Type | Department | Care Team | Description | +--------+ + + + + | 08/20/ | Orders Only | [facility] [place] | Kane Muller | Lumbar sprain | | 2012 | | CONVENIENT CARE [address] | MD [address] Need | (Primary Dx); Place | | | | [facility] | updated address | of occurrence, | | | | [place] | | industrial places | | | | [address] | | and premises | | | | [phone] | | | +--------+ + + + [...]
--- OUTSIDE RECORDS SUMMARY | ~2020-04-01 | XMS | Encounter Summary ---
Demographics + + + | Address | [address] | | | [place] [address] | + + + | Home Phone [...] + | Author | [facility] | | | and [place] | + + + | Organization | [facility] | | | and [...] Team Providers + +------+ + | Care Laser Operator Name | Role | Phone | + +------+ + PCP | Unavailable | + +------+ + Encounter Details +--------+ + + + + | Date | Type | Department | Care Team | Description | +--------+ + + + + | 05/16/ | Hospital | [facility] | | | | 2006 - | Encounter | MED CTR [facility] | | | | | | [facility] [address] | | | | 05/18/ | | [place], | | | | 2006 | | [place] [address] | | | | | | [phone] | | | +--------+ + + + [...]
--- OUTSIDE RECORDS SUMMARY | ~2020-04-01 | XMS | Encounter Summary ---
Demographics + + + | Address | [address] | | | [place] [address] | + + + | Home Phone [...] Team Providers + +------+ + | Care Shochet Name | Role | Phone | + +------+ + | Radu Fabian MD | PCP | | + +------+ + Reason for Visit +--------+--------+ + | Reason | Onset | Comments | | | Date | | +--------+--------+ + | Other | 01/29/ | | | | 2012 | | +--------+--------+ + Encounter Details +--------+ + + + + | Date | Type | Department | Care Team | Description | +--------+ + + + + | 01/29/ | Telephone | [facility] [place] | Yohana Kane | Other | | 2012 | | OCCUPATIONAL HEALTH | MD [address] Need | | | | | [address] | updated address | | | | | [address] [place] | | | | | | [place] | | | | | | [address] | | | | | | [phone] | | | +--------+ + + + [...] this encounter Miscellaneous Notes Telephone Encounter - Jennie Summers - 01/29/2013 4:05 PM PDTCalled to R/S appt but alisha high Stated she did not need to be seen since claim was denied. documented in this encounter Plan of Treatment Not on filedocumented as of this encounter Visit Diagnoses Not on filedocumented in this encounter"
--- OUTSIDE RECORDS SUMMARY | ~2020-04-01 | XMS | Encounter Summary ---
Demographics + + + | Address | [address] | | | [place] [address] | + + + | Home Phone | | + + + | Preferred Language | Unknown | + + + | Marital Status | | + + + | Anglican Affiliation | 1013 | + + + | Race | White | + + + | Ethnic Group | Not or | + + + Author + + + | Author | [facility] | | | and [place] | + + + | Organization | [facility] | | | [...] Team Providers + +------+ + | Care Financial Reserve Clerk Name | Role | Phone | + +------+ + | No, Physician | PCP | Unavailable | + +------+ + Encounter Details +--------+---------+ + + + | Date | Type | Department | Care Team | Description | +--------+---------+ + + + | 10/02/ | Office | [facility] | Kane Muller | Lumbar sprain | | 2012 | Visit | OCCUPATIONAL HEALTH | MD [address]ton Need | (Primary Dx); Place | | | | [place] [address] | updated address | of occurrence, | | | | [address] [place] | | industrial places | | | | [place], [place] | | and premises | | | | [address] | | | | | | [phone] | | | +--------+---------+ + + + [...] documented as of this encounter Progress Notes Kane Muller MD - 10/03/2012 8:27 PM PDTSee dictation [id number] nikki d by Kane Muller MD at 10/03/2012 8:28 PM VERONIKAWarKane siu MD - 10/03/19 13 12:00 AM PDT OCCUPATIONAL MEDICINE [address] [place] [address] FAX: [phone] OFFICE VISIT BACKGROUND INFORMATION: Claim #: [id number]; Date of injury: 07/27/2011; Employer: [employer]; Guarantor: Musa Jenkins. This dictation is documentation of medical conference with Dr. Nilesh Steele, Associate Medica l Director for the Department of Labors and Industry, regarding the above injured worker. T he discussion points basically revolved around clinical progress and formulation of a treat ment plan moving forward. I had indicated to Dr. Steele some of the circumstances with regar d to management of this patient's accepted conditions and my review of the Independent Medi bernardino Examination which had indicated concern over a possible occult pathology in the left hi p that may or may not be related to the original work condition, but may be causing ongoing symptomatology for this patient. My recommendation was to obtain an MR arthrogram of the l eft hip, and after discussion of this Dr. Steele was in favor of this as being a reasonable step to take for this person who is still quite symptomatic despite initial conservative tr eatment, passage of time, and consultative evaluation regarding her primary back problem. Radhames Steele indicated that he would discuss the circumstances with the claim's network account manager and try to make arrangements for the MR arthrogram of the left hip to be performed, and we discuss ed various possibilities of false-negatives/false-positives on these tests and that pre-cou nseling with the injured worker may be very appropriate to indicate that the test results w ould be evaluated in the overall clinical picture, including physical examination findings, but that if we do find some positive pathology a determination will then need to be made a s to whether it can be directly linked to the specific mechanism of injury, and also the po ssibility of obtaining an orthopedic consult with Dr. Gonzalo Martinez to further delineate r ecommended treatment plan should pathology be found. I was very much in agreement with this and very much appreciative of Dr. Steele' input and ability to help with claim's management and treatment plan on this injured worker by securing the authorization for the MR arthrog samia procedure of the left hip. This plan of approach was agreed upon and Dr. Steele offered to be available in the future should further difficulties with the claim arise, but I belie ve this should be able to bring us to a point of resolution for this claim one way or the o fide. John Muller MD / HOLLY JOB #: [id number] signed by Kane Muller MD at 10/04/2012 1:17 PM PDTd ocumented in this encounter Miscellaneous Notes Plan of Care - ONBASE SCAN WAWY - 10/02/2012 12:00 AM PDT documented in this encounter Plan of Treatment Not on filedocumented as of this encounter Visit Diagnoses + + | Diagnosis | + + | Lumbar sprain - Primary Sprain of lumbar region | + + | Place of occurrence, industrial places and premises | + + documented in this encounter"
--- OUTSIDE RECORDS SUMMARY | ~2020-04-01 | XMS | Clinical Summary ---
Demographics + + + | Address | [address] | | | [place] [address] | + + + | Home Phone | | + + + | Preferred Language | Unknown | + + + | Marital Status | | + + + | Spiritism Affiliation | Unknown | + + + | Race | White | + + + | Ethnic Group | Not or | + + + Author + + + | Author | [facility] | + + + | Organization | [facility] | + + + | Address | Unknown | + + + | Phone | Unavailable | + + + Support + + +---------+ + | Name | Relationship | Address | Phone | + + +---------+ + | Leni Villarreal | ECON | Unknown | | + + +---------+ + Care Team Providers + +------+ + | Care Steam Table Attendant Name | Role | Phone | + +------+ + PCP | Unavailable | + +------+ + Source Comments IGNACIO is fully live on both [facility] and [facility] InPatient.[facility] Allergies No Known Allergies Medications No known medications Active Problems + + + | Problem | Noted Date | + + + | Hyposmia | 10/03/2013 | + + + Family History + + +------+ + | Medical History | Relation | Name | Comments | + + +------+ + | Cancer | | | | + + +------+ + | Heart Disease | | | | + + +------+ + + +------+--------+ + | Relation | Name | Status | Comments | + +------+--------+ + Social History + +-------+ +--------+------+ | [...] + + + Last Filed Vital Signs Not on file Plan of Treatment + + +-------+ + | Health Maintenance | Due Date | Last | Comments | | | | Done | | + + +-------+ + | Influenza (Flu) | | | | | vaccination (#1) | 0 | | | + + +-------+ + | Pneumococcal | Aged Out | | No longer eligible based on patient's age | | vaccination | | | to complete this topic | + + +-------+ + Results Not on filefrom Last 3 Months Insurance + +--------+ +--------+ + +------+ | Payer | Benefi | Subscriber | Effect | Phone | Address | Type | | | t Plan | ID | manav | | | | | | / | | Dates | | | | | | Group | | | | | | + +--------+ +--------+ + +------+ | [facility] [facility] | PHP | [id number] | | [phone] | [address] | PPO | | | [address] | | [phone] | | [address] | | esent | | [place], | | | | [place] | | | | [place] [address] | | + +--------+ +--------+ + +------+ + +--------+ +--------+ + + | Guarantor Name | Accoun | Relation to | Date | Phone | Billing Address | | | t Type | Patient | of | | | | | | | | | | + +--------+ +--------+ + + | Gayathri Palma | Person | Self | [birth year] | [address] [place], | | | al/Fam | | 1980 | [phone] | [place] [address] | | | [place] | | | 7 (Home) | | + +--------+ +--------+ + +"
--- OUTSIDE RECORDS SUMMARY | ~2020-04-01 | XMS | Encounter Summary ---
Demographics + + + | Address | [address] | | | [place] [address] | + + + | Home Phone | | + + + | Preferred Language | Unknown | + + + | Marital Status | | + + + | Quaker Affiliation | 1013 | + + + | Race | White | + + + | Ethnic Group | Not or | + + + Author + + + | Author | [facility] | | | and [place] | + + + | Organization | [facility] | | [...] Team Providers + +------+ + | Care Senior Electrical Designer Name | Role | Phone | + +------+ + PCP | Unavailable | + +------+ + Encounter Details +--------+ + + + + | Date | Type | Department | Care Team | Description | +--------+ + + + + | 03/22/ | [facility] | [facility] | Laureano Peraza | | | 2010 | Encounter | MED CTR XRAY [address] | | | | | [place] | [address] [place] [address] | | | | | [place] [address] | [address] | | | | | [phone] | | | +--------+ + + + [...] | + +--------+ + + + | FL SI JOINT | | 03/22/2011 | | Results for this | | INJECTION | | 2:41 PM | | procedure are in the | | | | PDT | | results section. | + +--------+ + + + documented in this encounter Results FL SI Joint Injection (03/22/2011 2:41 PM PDT) + + | Specimen | + + | | + + + + + | Narrative | Performed At | + + + | [facility] Diagnostic Imaging Department | [facility] | | [address], [facility] | [facility] | | 03/22/2011, SACROILIAC JOINT | DIAG IMG | | INJECTIONS CLINICAL HISTORY: ICD-9 CODE IS 720.2, SACROILIITIS. | | | FINDINGS: Ms. Gayathri Palma presents to the fluoroscopy suite | | | for fluoroscopically guided bilateral sacroiliac joint injections as | | | part of conservative management for chronic pain with sacroiliitis. | | | A fter informed consent was obtained the patient laid in the prone | | | position on the fluoroscopy table. The areas were identified under | | | fluoroscopic guidance. The areas were prepped and draped in sterile | | | fashion. A 25 gauge 1-1/2 inch needle was inserted into each | | | region and approximately 3 mL of buffer ed 1% lidocaine was infused. | | | Then a 22 gauge spinal needle was inserted into the inferior joint | | | spac es under fluoroscopic guidance. Confirmation into the | | | sacroiliac joints was obtained with the infusi on of approximately 1 | | | mL of Isovue contrast which showed flow within the joint space. Then | | | a combina tion of 2 mL of 1% lidocaine and 2 mL of 40 mg per | | | milliliter Kenalog was infused divided between the two sides. The | | | patient tolerated the procedures well without complications. Pre- | | | and post procedur e blood pressures were stable. The patient was | | | given verbal as well as written followup instructions . The patient | | | reported no significant change in symptoms post procedure. Prior | | | to the start of the procedure the following were performed and | | | verified including correct patie nt identity, correct site/side | | | marked and visible, agreement of the procedure to be done, correct pat | | | ient positioning and an accurate procedure consent form. Any | | | safety precautions based on clinical hi story and/or medications have | | | been addressed. I personally performed the procedure above. | | | Dictated Date/Time: 03/22/2011 17:46 Transcribed Date/Time: | | | 03/22/2011 17:56 Rouge Miller: <Electronically Signed | | | by Laureano Peraza MD> 03/23/11 0935 | | + + + + + | Procedure Note | + + | Kevyn Choudhury Conversion - 03/26/2014 10:08 AM [facility] | | Diagnostic Imaging Department [address] [place] [address] | | 03/22/2011, SACROILIAC JOINT INJECTIONS CLINICAL | | HISTORY: ICD-9 CODE IS 720.2, SACROILIITIS. FINDINGS: Ms. Gayathri Palma presents to | | the fluoroscopy suite for fluoroscopically guided bilateral sacroiliac joint injections | | as part of conservative management for chronic pain with sacroiliitis. After informed | | consent was obtained the patient laid in the prone position on the fluoroscopy table. | | The areas were identified under fluoroscopic guidance. The areas were prepped and | | draped in sterile fashion. A 25 gauge 1-1/2 inch needle was inserted into each region | | and approximately 3 mL of buffered 1% lidocaine was infused. Then a 22 gauge spinal | | needle was inserted into the inferior joint spaces under fluoroscopic guidance. | | Confirmation into the sacroiliac joints was obtained with the infusion of approximately | | 1 mL of Isovue contrast which showed flow within the joint space. Then a combination of | | 2 mL of 1% lidocaine and 2 mL of 40 mg per milliliter Kenalog was infused divided | | between the two sides. The patient tolerated the procedures well without complications. | | Pre- and post procedure blood pressures were stable. The patient was given verbal as | | well as written followup instructions. The patient reported no significant change in | | symptoms post procedure. Prior to the start of the procedure the following were | | performed and verified including correct patient identity, correct site/side marked and | | visible, agreement of the procedure to be done, correct patient positioning and an | | accurate procedure consent form. Any safety precautions based on clinical history | | and/or medications have been addressed. I personally performed the procedure above. | | Dictated Date/Time: 03/22/2011 17:46Transcribed Date/Time: 03/22/2011 | | 17:56Transcriptionist: <Electronically Signed by Laureano Peraza MD> 03/23/11 | | 0935 | |ient positioning and an accurate procedure consent form. Any safety precautions based on c linical hi | |story and/or medications have been addressed. | | | |I personally performed the procedure above. | | | |Dictated Date/Time: 03/22/2011 17:46 | |Transcribed Date/Time: 03/22/2011 17:56 | |Rouge Miller: | |<Electronically Signed by Laureano Peraza MD> 03/23/11 0935 | + + + +---------+ + + [...]
[~2020-04-01 18:36] MED LIST: ANTIVERT12.5 MG PO; FLUOXETINE HCL10 M1 PO; XANAX0.5 MG PO
[2020-04-01] MEDS ORDERED: ATIVAN1 MG PO (19:27)
== END 2020-04-01 19:53 | disposition home or self-care (01) ==
LOC: ED 18:36
DX: R45.851 Suicidal ideations (principal); Z88.5 Allergy status to narcotic agent
CPT/HCPCS: 99284

== ENCOUNTER 2021-11-13 22:44 | Emergency (ER) | payer OTHER ==
[~2021-11-13] VITALS: Ht 167.6 cm; Wt 75.5 kg
[~2021-11-13 22:44] MED LIST changes: +ATIVAN1 MG PO
[2021-11-13] MEDS ORDERED: PREMARIN0.3 MG PO (23:01)
[2021-11-14] MEDS ORDERED: ULTRAM50 MG PO (01:13)
[2021-11-14] MEDS ORDERED: ONDANSETRON ODT8 MG PO (01:13)
== END 2021-11-14 01:40 | disposition home or self-care (01) ==
LOC: ED 22:44
DX: K80.50 Calculus of bile duct without cholangitis or cholecystitis without obstruction (principal); Z88.5 Allergy status to narcotic agent; Z79.899 Other long term (current) drug therapy
CPT/HCPCS: 36415; 74177; 80053; 81001; 83690; 84703; 85025; 96361; 96375; 96376; 99284-25; A9270; J2405; J2550; J3010; J7030; Q9967

== ENCOUNTER 2022-08-05 21:21 | Emergency (ER) | payer OTHER ==
[~2022-08-05] VITALS: Ht 167.6 cm; Wt 75.5 kg
[~2022-08-05 21:21] MED LIST changes: +ONDANSETRON ODT8 MG PO; +PREMARIN0.3 MG PO; +ULTRAM50 MG PO
--- OUTSIDE RECORDS SUMMARY | 2022-08-05 21:24 | XMS ---
PreManage Notification: PENELOPE VASQUEZ Security Patient Services Clerk Events No recent Security Events currently on file CRITERIA MET - JESSICA CARE PROVIDERS -, [facility]- Dentist: Dish Technician [facility] PHONE: [phone] Tim has no Care Guidelines for this patient. E.Rachel VISIT COUNT (12 MO.) 2 [facility] 2 JOSE C Hart TOTAL 4 NOTE: Visits indicate total known visits. ED/C VISIT TRACKING (12 MO.) 08/05/2022 21:[address] [facility] [address] TYPE: Emergency COMPLAINT: - ABD PAIN BACK 04/23/2022 09:21 [facility] TYPE: Emergency DIAGNOSES: - Unspecified abdominal pain - flank pain, vomiting - Other specified diseases of gallbladder - Flank Pain [facility] DIAGNOSES: - Flank Pain - Unspecified abdominal pain - kidney pain 11/13/2021 22:[address] [facility] [place] TYPE: Emergency COMPLAINT: - ABD PAIN DIAGNOSES: - Right upper quadrant pain - Other local company intermodal truck driver (current) drug therapy - Calculus of bile duct without cholangitis or cholecystitis without obstruction - Allergy status to narcotic agent INPATIENT VISIT TRACKING (12 MO.) No inpatient visits to display in this time frame [email or web address]
[2022-08-06] MEDS ORDERED: PRILOSEC OTC20 MG PO (00:08)
--- NOTE | 2022-08-06 22:05 | EKG ---
[facility] [address] [place] [address] Signed Normal sinus rhythm Normal ECG No previous ECGs available Confirmed by Dino Traylor MD () on 08/06/2022 10:05:03 PM Electronically Signed By: DINO TRAYLOR MD 08/06/222204 PATIENT NAME: PENELOPE VASQUEZ Electrocardiogram DATE OF : 80 PHYSICIAN: DINO TRAYLOR MD REPORT #: [id number] REPORT IS CONFIDENTIAL AND NOT TO BE RELEASED WITHOUT AUTHORIZATION
== END 2022-08-06 00:25 | disposition home or self-care (01) ==
LOC: ED 21:21
DX: R10.11 Right upper quadrant pain (principal); Z88.5 Allergy status to narcotic agent; Z79.899 Other long term (current) drug therapy
CPT/HCPCS: 36415; 71045; 74177; 80053; 81003; 83690; 84484; 85025; 93005; 93010; 96374; 96375; 96376; 99284-25; J1170; J1790; J1885; J2270; J2405; J7121; Q9967